=== PATIENT | male | born 1950 | race Caucasian/White ===

== ENCOUNTER 2017-05-31 16:32 | Inpatient (IN) | payer OTHER ==
[~2017-05-31] VITALS: Ht 175.3 cm; Wt 73.3 kg
[2017-05-31] MEDS ORDERED: ASPIRIN 81 MG TAB PO STA (16:51)
[2017-05-31] MEDS ORDERED: NITROGLYCERIN 2% 1 GM OINT PKT TD STA (16:51)
[2017-05-31] MEDS ORDERED: LABETALOL HCL 20MG INJ IV ONE (17:00)
[2017-05-31] MEDS ORDERED: NITROGLYCERIN (SL) 0.4 MG TAB SL PRN ×2 (17:00→19:30)
[2017-05-31] MEDS ORDERED: ALPR0.25 PO (17:13)
[2017-05-31] MEDS ORDERED: KEN25O TOP (17:13)
[2017-05-31] MEDS ORDERED: TICA90TA PO (17:14)
[2017-05-31] MEDS ORDERED: SENN-53 PO (17:15)
[2017-05-31] MEDS ORDERED: BENZ100C70 PO (17:15)
[2017-05-31] MEDS ORDERED: BENZ200C43 PO (17:15)
[2017-05-31] MEDS ORDERED: NEPH PO (17:16)
[2017-05-31] MEDS ORDERED: SEVE800T10 PO (17:16)
[2017-05-31] MEDS ORDERED: PROT946L PO (17:17)
[2017-05-31] MEDS ORDERED: OMEP20CA16 PO (17:17)
[2017-05-31] MEDS ORDERED: NITR0.4T32 SL (17:18)
[2017-05-31] MEDS ORDERED: NIFE60TA7 PO (17:19)
[2017-05-31] MEDS ORDERED: LOSA50TA6 PO (17:20)
[2017-05-31] MEDS ORDERED: ATOR20TA38 PO (17:20)
[2017-05-31] MEDS ORDERED: ASPI-664 PO (17:20)
[2017-05-31] MEDS ORDERED: CARV25TA79 PO (17:21)
[2017-05-31] MEDS ORDERED: CLON1PAT2 TD (17:23)
[2017-05-31] MEDS ORDERED: BISA10SU75 PR (17:24)
[2017-05-31] MEDS ORDERED: FLEETPED PR (17:25)
[2017-05-31] MEDS ORDERED: GABA100C14 PO (17:26)
[2017-05-31] MEDS ORDERED: INSU100V3 IJ (17:31)
--- NOTE | 2017-05-31 17:32 | RADRPT ---
PROCEDURE: XR Chest. CLINICAL INDICATION: Shortness of breath. Chest pain TECHNIQUE: A single portable view of the chest was obtained. COMPARISON: None FINDINGS: The aorta is tortuous and atherosclerotic. The cardiomediastinal silhouette is otherwise moderately enlarged. Bilateral pleural effusions are seen with probable compressive basilar atelectasis, right greater than left. The soft tissues and osseous structures demonstrate benign age related senescen t changes. IMPRESSION: 1. Moderate cardiomegaly. 2. Bilateral pleural effusions, right greater than left. RPTAT: HPNM Physician Homar Date Time Electronically viewed and signed by Darrell Devries Physician on 05/31/2017 17:31 /
[2017-05-31 17:52] LABS: BASOPHIL # 0.1 10^3/ul (0.0-0.1); BASOPHILS % 0.7 % (0.0-2.0); EOSINOPHILS # 0.1 10^3/ul (0.0-0.5); EOSINOPHILS % 1.4 % (0.0-7.0); HEMATOCRIT 28.2 % (42.0-52.0); HEMOGLOBIN 8.8 g/dl (14.0-18.0); LYMPHOCYTES # 0.9 10^3/ul (0.8-2.9); LYMPHOCYTES % 11.2 % (15.0-51.0); MEAN CORPUSCULAR HEMOGLOBIN 26.5 pg (29.0-33.0); MEAN CORPUSCULAR HGB CONC 31.2 g/dl (32.0-37.0); MEAN CORPUSCULAR VOLUME 84.9 fl (82.0-101.0); MEAN PLATELET VOLUME 8.7 fl (7.4-10.4); MONOCYTE # 1.3 10^3/ul (0.3-0.9); MONOCYTES % 15.8 % (0.0-11.0); NEUTROPHIL # 5.9 10^3/ul (1.6-7.5); NEUTROPHILS % 70.3 % (39.0-77.0); PLATELET COUNT 403 10^3/UL (140-415); RED BLOOD COUNT 3.32 10^6/ul (4.70-6.10); RED CELL DISTRIBUTION WIDTH 14.1 % (11.5-14.5); WHITE BLOOD COUNT 8.4 10^3/ul (4.8-10.8)
[2017-05-31 18:07] LABS: CREATININE 5.18 mg/dl (0.61-1.24); POTASSIUM 4.1 mmol/L (3.5-5.1)
[2017-05-31 18:18] LABS: TROPONIN-I 0.129 ng/ml (0.00-0.12)
[2017-05-31] MEDS ORDERED: ACETAMINOPHEN 325 MG TAB PO PRN ×2 (19:00→19:30)
[2017-05-31] MEDS ORDERED: ONDANSETRON 4 MG INJ IV PRN ×2 (19:00→19:30)
[2017-05-31] MEDS: BISACODYL 10 MG SUPP PR SCH (19:30)
[2017-05-31] MEDS ORDERED: ALPRAZOLAM 0.25 MG TAB PO PRN (19:30)
[2017-05-31] MEDS ORDERED: NACL 0.9% 3 ML SYG IV SCH (19:30)
[2017-05-31] MEDS ORDERED: NA PHOSPHATE/BIPHOS 66.6 ML ENEMA PR PRN (19:30)
[2017-05-31 19:31] VITALS: TEMP 98.8
--- NOTE | 2017-05-31 19:42 | ERA ---
ER Documentation Chief Complaint Date/Time DATE: 05/31/17 TIME: 19:38 Chief Complaint worsening SOB s/p dialysis; has been SOB [id number] HPI Patient is a 66-year-old male with dialysis, diabetes, hypertension, and coronary disease who presents with shortness of breath. The patient was brought in by ambulance. The patient does have shortness of breath that is worse at night. The patient was given 3 nitroglycerin by paramedics but no aspirin. The patient says that he cannot lie down flat. He was in a long term facility for the past 1 month. He says that he had 2 stents placed last week at [place] in his heart. He has had vomiting and hiccups. He is speaking in full sentences. His blood pressure was significantly elevated per paramedics above 200 systolic. Upon review of old medical records this is the patient's first visit to the emergency department. His welding foreman is Dr. Bryson. His primary doctor is Dr. Esparza. ROS All systems reviewed and are negative except as per history of present illness. Medications Home Meds Reported Medications Insulin Regular, Human (Humulin R) 100 Unit/1 Ml Vial, 0 IJ SLIDING SCALE, VIAL IF BS 151-200=2 UNITS<70-ORANGE JUICE OR 1MG IM GLUCAGON AND CALL MD;201-250=4 UNITS,251-300=6 UNITS, 301-350=8 UNITS, 351-400=10 UNITS>400=12 UNITS AND CALL MD 05/31/17 Gabapentin* (Gabapentin*) 100 Mg Capsule, 100 MG PO QHS, #30 CAP 05/31/17 Sod Phosphate/Sod Biphosphate* (Fleet* Enema Pediatric) 66.6 Ml Soln, 118 ML GA Q72H Y for CONSTIPATION, ENEMA 05/31/17 Bisacodyl* (Bisacodyl*) 10 Mg Supp, 10 MG GA Q48H, SUPP 05/31/17 Clonidine Patch (CLONIDINE PATCH) 0.2 Mg/24 Hr Patch, 1 PATCH.WK TD Q SAT, #4 PATCH.WK HOLD IF SBP<110 OR HR<60 05/31/17 Carvedilol* (Carvedilol*) 25 Mg Tablet, 25 MG PO BID, #60 TAB HOLD IF SBP<110 OR HR<60 05/31/17 Atorvastatin Calcium* (Atorvastatin Calcium*) 20 Mg Tablet, 20 MG PO QHS, #30 TAB 05/31/17 Aspirin* (Aspirin* EC) 81 Mg Tablet.dr, 81 MG PO DAILY, TAB 05/31/17 Losartan Potassium* (Losartan Potassium*) 50 Mg Tablet, 50 MG PO BID, TAB HOLD IF SBP<110 OR ER<60 05/31/17 Nifedipine* (Nifedipine ER*) 60 Mg Tablet.sa, 60 MG PO BID, TAB.SA HOLD IF SBP<110 OR HR<60 05/31/17 Nitroglycerin* (Nitroglycerin* SL) 0.4 Mg Tab.subl, 0.4 MG SL Q5MIN Y for CHEST PAIN, BOTTLE 05/31/17 Omeprazole* (Omeprazole*) 20 Mg Capsule.dr, 20 MG PO DAILY, #30 CAP 05/31/17 Protein Supplement (Promod) 946 Ml Liquid, 30 ML PO TID 05/31/17 Multivit/Ca Carb/B Cmplx/Fa* (Estephanie-Doc*) 1 Tab Tab, 1 TAB PO DAILY, TAB 05/31/17 Sevelamer Hcl* (Renagel*) 800 Mg Tablet, 800 MG PO WITH MEALS, TAB 05/31/17 Sennosides* (Senna Lax*) 8.6 Mg Tablet, 2 TAB PO QHS, TAB 05/31/17 Benzonatate* (Benzonatate*) 200 Mg Capsule, 200 MG PO Q8H Y for COUGH, CAP 05/31/17 Benzonatate* (Tessalon Perle*) 100 Mg Capsule, 100 MG PO Q8H Y for COUGH, CAP 05/31/17 Ticagrelor* (Brilinta*) 90 Mg Tablet, 90 MG PO Q12, TAB 05/31/17 Triamcinolone Acetonide* (Kenalog*) 0.025%-15GM Oint, 1 APPLIC TOP BID, #1 EA 05/31/17 Alprazolam* (Xanax*) 0.25 Mg Tablet, 0.25 MG PO Q8H Y for ANXIETY, TAB 05/31/17 Allergies Allergies: Coded Allergies: Penicillins (Unverified Allergy, Unknown, 05/31/17) PMhx/Soc History of Surgery: Yes (Stent x2 one week ago) Anesthesia Reaction: No Hx 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 Disorder: No Hx Respiratory Disorders: No Hx Cardiac Disorders: Yes (HTN, CHF) Hx Psychiatric Problems: No Hx Miscellaneous Medical Probl: Yes (CKD) Hx Alcohol Use: No Hx Substance Use: No Hx Tobacco Use: No Smoking Status: Former smoker FmHx Family History: No coronary disease Physical Exam Vitals Vital Signs Date Time Temp Pulse Resp B/P Pulse Ox O2 Delivery O2 Flow Rate FiO2 05/31/17 19:31 98.8 100 20 163/93 100 Nasal Cannula 5.0 05/31/17 18:30 99.1 97 19 167/91 100 05/31/17 17:22 Nasal Cannula 2 05/31/17 16:46 Nasal Cannula 2.0 05/31/17 16:37 99.3 109 19 190/114 100 Physical Exam Const: Mild distress secondary to shortness of breath Head: Atraumatic Eyes: Normal Conjunctiva ENT: Normal External Ears, Nose and Mouth. Neck: Full range of motion..~ No meningismus. Resp: Decreased breath sounds bilaterally Cardio: Regular rate and rhythm, no murmurs Abd: Soft, non tender, non distended. Normal bowel sounds Skin: No petechiae or rashes Back: No midline or flank tenderness Ext: 1+ pitting edema bilaterally Neur: Awake and alert Psych: Normal Mood and Affect Result Diagram: 05/31/17 1722 05/31/17 1722 Results 24 hrs Laboratory Tests Test 05/31/17 17:22 White Blood Count 8.410^3/ul Red Blood Count 3.3210^6/ul Hemoglobin 8.8g/dl Hematocrit 28.2% Mean Corpuscular Volume 84.9fl Mean Corpuscular Hemoglobin 26.5pg Mean Corpuscular Hemoglobin Concent 31.2g/dl Red Cell Distribution Width 14.1% Platelet Count 53272^3/UL Mean Platelet Volume 8.7fl Neutrophils % 70.3% Lymphocytes % 11.2% Monocytes % 15.8% Eosinophils % 1.4% Basophils % 0.7% Nucleated Red Blood Cells % 0.0/100WBC Neutrophils # 5.910^3/ul Lymphocytes # 0.910^3/ul Monocytes # 1.310^3/ul Eosinophils # 0.110^3/ul Basophils # 0.110^3/ul Nucleated Red Blood Cells # 0.010^3/ul Sodium Level 138mmol/L Potassium Level 4.1mmol/L Chloride Level 92mmol/L Carbon Dioxide Level 37mmol/L Anion Gap 13 Blood Urea Nitrogen 11mg/dl Creatinine 5.18mg/dl Glucose Level 149mg/dl Calcium Level 9.0mg/dl Troponin I 0.129ng/ml Current Medications Medications (Trade) Dose Ordered Sig/Ana Laura Route PRN Reason Start Time Stop Time Status Last Admin Dose Admin Aspirin (Aspirin) 162 mg ONCE STAT PO 05/31/17 16:51 05/31/17 16:52 DC 05/31/17 17:27 Nitroglycerin (Nitroglycerin 2% Oint) 1 inch ONCE STAT TD 05/31/17 16:51 05/31/17 16:52 DC 05/31/17 17:36 Nitroglycerin (Nitroglycerin (Sl Tab) 0.4 Mg) 1 tab Q5M UP TO 3 DOSES PRN SL CHEST PAIN 05/31/17 17:00 Labetalol HCl (Labetalol) 20 mg ONCE ONCE IV 05/31/17 17:00 05/31/17 17:01 DC 05/31/17 17:27 Ondansetron HCl (Zofran Inj) 4 mg ER BRIDGE PRN IV NAUSEA AND/OR VOMITING 05/31/17 19:00 06/01/17 18:59 Acetaminophen (Tylenol Tab) 650 mg ER BRIDGE PRN PO MILD PAIN/FEVER 05/31/17 19:00 06/01/17 18:59 Alprazolam (Xanax) 0.25 mg Q8H PRN PO ANXIETY 05/31/17 19:30 Aspirin (Halfprin) 81 mg DAILY PO 06/01/17 09:00 Atorvastatin Calcium (Lipitor) 20 mg QHS PO 05/31/17 22:00 Bisacodyl (Dulcolax Supp) 10 mg Q48H GA 05/31/17 19:30 Carvedilol (Coreg) 25 mg BID PO 05/31/17 22:00 Clonidine HCl (Catapres-Tts 2 Patch) 0.2 patch DAILY TRANSDERM 06/01/17 09:00 UNV Gabapentin (Neurontin) 100 mg QHS PO 05/31/17 22:00 Losartan Potassium (Cozaar) 50 mg BID PO 05/31/17 22:00 Multivit/Ca Carb/ B Cmplx/FA/Prenat (Estephanie-Doc) 1 tab DAILY PO 06/01/17 09:00 Nifedipine (Procardia Xl) 60 mg BID PO 05/31/17 22:00 Nitroglycerin (Nitroglycerin (Sl Tab) 0.4 Mg) 0.4 tab [id number] PRN SL CHEST PAIN 05/31/17 19:30 UNV Senna (Senokot) 2 tab QHS PO 05/31/17 22:00 Sevelamer HCl (Renagel) 800 mg WITH MEALS PO 06/01/17 08:00 UNV Sodium Biphosphate/ Sodium Phosphate (Fleet Enema Pediatric) 118 ml Q72H PRN GA CONSTIPATION 05/31/17 19:30 UNV Ticagrelor (Brilinta) 90 mg Q12 PO 05/31/17 21:00 UNV Triamcinolone Acetonide (Kenalog 0.025% Oint) 1 applic BID TOP 05/31/17 21:00 UNV IV Flush (NS 3 ml) 3 ml PER PROTOCOL IV 05/31/17 19:30 UNV Ondansetron HCl (Zofran Inj) 4 mg Q6H PRN IV NAUSEA AND/OR VOMITING 05/31/17 19:30 UNV Acetaminophen (Tylenol Tab) 650 mg Q6H PRN PO PAIN LEVEL 1-3 OR FEVER 05/31/17 19:30 Procedures/MDM EKG #1 read by me: Rate/Rhythm: Regular rate and rhythm at a normal rate Intervals: Normal Impression: No evidence of ischemia or arrhythmia EKG #2 read by me: Rate/Rhythm: Regular rate and rhythm at a normal rate Intervals: Normal Impression: No evidence of ischemia or arrhythmia PROCEDURE: XR Chest. CLINICAL INDICATION: Shortness of breath. Chest pain TECHNIQUE: A single portable view of the chest was obtained. COMPARISON: None FINDINGS: The aorta is tortuous and atherosclerotic. The cardiomediastinal silhouette is otherwise moderately enlarged. Bilateral pleural effusions are seen with probable compressive basilar atelectasis, right greater than left. The soft tissues and osseous structures demonstrate benign age related senescent changes. IMPRESSION: 1. Moderate cardiomegaly. 2. Bilateral pleural effusions, right greater than left. RPTAT: HPNM Darrell Mogannam, Physician Date Time Electronically viewed and signed by Darrell Devries Physician on 05/31/2017 17 :31 Patient is a 66-year-old male with dialysis, diabetes, and coronary disease who presents with shortness of breath. I believe he likely has acute congestive heart failure given his recent cardiac stents 1 week ago. Patient also has anemia with a hemoglobin of 8.8 but does not require transfusion at this point. The patient has chronic renal failure but his potassium is normal. The patient will be admitted to the telemetry floor under the care of the panel team as he has never been admitted before his primary doctor does not admit here. I doubt pneumonia, pneumothorax, pulmonary embolism, or aortic dissection. Departure Diagnosis: Primary Impression: Shortness of breath Additional Impressions: CHF (congestive heart failure) Qualified Code: I50.9 - Acute congestive heart failure, unspecified congestive heart failure type Anemia Qualified Code: D64.9 - Anemia, unspecified type Condition: MONICA Abrams MD May 31, 2017 19:42
[2017-05-31 20:17] VITALS: PULSE 99
[2017-05-31 21:09] VITALS: BP 184/99; RESP 20
[2017-05-31 22:25] VITALS: BP 191/103; PULSE 95
--- NOTE | 2017-05-31 22:29 | HP ---
Date/Time of Note Date/Time of Note DATE: 05/31/17 TIME: 22:20 Assessment/Plan VTE Prophylaxis VTE Prophylaxis Intervention: SCD's Lines/Catheters IV [facility]from [facility] Assessment/Plan Chief Complaint/Hosp Course This is a 66 year old male being admitted to the telemetry floor for: #1 acute chf exacerbation: Patient apparently had a full dialysis session today. He does have crackles on his lung exam left greater than right and his chest x-ray does show bilateral pleural effusions. At the current time the patient does not appear to be in any acute distress. He does not have any lower extremity edema. At the current time I will give a trial of metolazone 5 mg and 30 minutes after we will give IV Lasix 40 mg 1. We will see for able to get any diuresis. As the patient right now is comfortable, I will await nephrology consultation for possible further dialysis to help with diuresis in the a.m. If his condition worsens tonight will consult nephrology urgently. We will also consult the patient's divinity professor Dr. Bryson As he recently had stents placed as he recently had stents placed we will try to obtain records in the a.m. If we are unable to obtain records and if cardiology deems it necessary will order an echocardiogram in the a.m. of note patient did have an initial elevated troponin of 0.12 however he denies any chest pain. This likely could be secondary to his end-stage renal disease. Will continue to trend his enzymes. #2 diabetes mellitus: Patient states that he has a history of diabetes mellitus however he is not currently requiring any medications. Will check hemoglobin A1c. And for the meantime put him on insulin sliding scale. #3 coronary artery disease: Patient is a recent history of cardiac stents. Will continue aspirin/statin/beta-kimberly. He also is on an ARB will continue him on this #4 hypertension: We will continue patient's home medications. Will put as needed hydralazine for elevated blood pressure. #5 end-stage renal disease: We do not have any previous renal function test here as is his first time at the hospital. His current creatinine is 5.7. He did have dialysis today. Will consult nephrology in the a.m. Patient likely will benefit from a dialysis session in the a.m. if he is not able to achieve adequate diuresis overnight. Continue patient's renal medications #6 DVT and GI prophylaxis: SCDs, acid kimberly Further treatment strategy will be implemented as per the clinical course Problems: HPI/ROS Admit Date/Time Admit Date/Time May 31, 2017 at 18:39 Hx of Present Illness CC: shortness of breath Patient is a 66-year-old male with dialysis, diabetes, hypertension, and coronary disease who presents with shortness of breath. The patient was brought in by ambulance. The patient does have shortness of breath that is worse at night. The patient was given 3 nitroglycerin by paramedics but no aspirin. The patient says that he cannot lie down flat. He was in a [facility] facility for the past 1 month. He says that he had 2 stents placed last week at [place] in his heart. He has had vomiting and hiccups. He is speaking in full sentences. Patient denies any chest pain or diaphoresis. His blood pressure was significantly elevated per paramedics above 200 systolic, however upon my examination his blood pressure is in systolic of 160. Prior to me entering the room patient was sleeping comfortably while lying down. On examination he does not appear to be in any acute respiratory distress. He states that he had a full session of dialysis today. He states his divinity professor is Dr. Bryson. Though he reports that he does not urinate, he does state that in the past he has taken Lasix and he has urinated. allergies: Penicillins Medications: See ROME MELGAR Const: As per HPI Eyes : No pain discharge or redness or change in visual acuity ENT: No pain, sore throat, congestion, congestion, dysphagia or discharge Respiratory: As per HPI Cardiovascular: As per HPI GI : no change in appetite, abdominal pain, nausea, vomiting, diarrhea, constipation, or change in the color his stool Genitourinary: No dysuria, hematuria, flank pain , discharge or CVA tenderness Musculoskeletal: No joint pain, back pain, neck pain, restricted range of motion in neck or joints Skin: No rash, bruising or hives Neuro: No headache, dizziness, syncope, seizure, focal weakness Endocrine: No polyuria, polydipsia, temperature intolerance Psych: No hallucination, depression, anxiety or suicidal ideation PMH/Family/Social Past Medical History htn, dm,. chf, cad Past Surgical History Cardiac stents recently, left av fistula Family History Significant Family History: diabetes, hypertension Social History Alcohol Use: none Smoking Status: Former smoker (20 pack year history) Drug Use: none Exam/Review of Systems Vital Signs Vitals Vital Signs Date Time Temp Pulse Resp B/P Pulse Ox O2 Delivery O2 Flow Rate FiO2 05/31/17 21:09 99.3 99 20 184/99 98 05/31/17 19:31 Nasal Cannula 5.0 Exam Exam General: Patient is a 6-year-old male lying in bed in no acute distress HEENT: Atraumatic, normocephalic. The pupils are equal, round and reactive. Extraocular motor are intact Neck: Supple with full range of motion. No rigidity or meningismus Chest: Nontender Lungs: Appear to be bilateral crackles on exam greater on the left compared to the right. No wheezing Heart: Normal S1-S2, Regular rhythm and rate. No overt murmurs appreciated Abdomen: Soft , nontender, nondistended , bowel sounds are present. No guarding no rebound tenderness , No masses or organomegaly. No costovertebral temporal angle mass Extremities: Normal to inspection, no edema no cyanosis Neurologic: Normal mental status, speech normal, cranial nerves II through XII are intact, motor and sensory are intact, no focal weakness Additional Comments PROCEDURE: XR Chest. CLINICAL INDICATION: Shortness of breath. Chest pain TECHNIQUE: A single portable view of the chest was obtained. COMPARISON: None FINDINGS: The aorta is tortuous and atherosclerotic. The cardiomediastinal silhouette is otherwise moderately enlarged. Bilateral pleural effusions are seen with probable compressive basilar atelectasis, right greater than left. The soft tissues and osseous structures demonstrate benign age related senescent changes. IMPRESSION: 1. Moderate cardiomegaly. 2. Bilateral pleural effusions, right greater than left. RPTAT: HPNM Physician Homar Date Time Electronically viewed and signed by Physician Homar on 05/31/2017 17 :31 / CC: MONICA ROMEO MD EKG #1 : Rate/Rhythm: Regular rate and rhythm at a normal rate Intervals: Normal Impression: No evidence of ischemia or arrhythmia As per ED physician documentation Labs Result Diagram: 05/31/17 1722 05/31/17 1722 Medications Medications Current Medications Alprazolam (Xanax) 0.25 mg Q8H PRN PO ANXIETY; Start 05/31/17 at 19:30 Aspirin (Halfprin) 81 mg DAILY PO ; Start 06/01/17 at 09:00 Atorvastatin Calcium (Lipitor) 20 mg QHS PO ; Start 05/31/17 at 22:00 Bisacodyl (Dulcolax Supp) 10 mg Q48H SC ; Start 05/31/17 at 19:30 Carvedilol (Coreg) 25 mg BID PO ; Start 05/31/17 at 22:00 Clonidine HCl (Catapres-Tts 2 Patch) 0.2 patch Sa@09 TRANSDERM ; Start 06/02/17 at 09:00 Gabapentin (Neurontin) 100 mg QHS PO ; Start 05/31/17 at 22:00 Losartan Potassium (Cozaar) 50 mg BID PO ; Start 05/31/17 at 22:00 Multivit/Ca Carb/ B Cmplx/FA/Prenat (Estephanie-Doc) 1 tab DAILY PO ; Start 06/01/17 at 09:00 Nifedipine (Procardia Xl) 60 mg BID PO ; Start 05/31/17 at 22:00 Nitroglycerin (Nitroglycerin (Sl Tab) 0.4 Mg) 0.4 tab [id number] PRN SL CHEST PAIN; Start 05/31/17 at 19:30 Senna (Senokot) 2 tab QHS PO ; Start 05/31/17 at 22:00 Sodium Biphosphate/ Sodium Phosphate (Fleet Enema Pediatric) 118 ml Q72H PRN SC CONSTIPATION; Start 05/31/17 at 19:30 Ticagrelor (Brilinta) 90 mg Q12 PO ; Start 05/31/17 at 22:00 Triamcinolone Acetonide (Kenalog 0.025% Oint) 1 applic BID TOP ; Start 05/31/17 at 22:00 Ondansetron HCl (Zofran Inj) 4 mg Q6H PRN IV NAUSEA AND/OR VOMITING; Start 05/31/17 at 19:30 Acetaminophen (Tylenol Tab) 650 mg Q6H PRN PO PAIN LEVEL 1-3 OR FEVER; Start 05/31/17 at 19:30 ARASH MCCRARY May 31, 2017 22:29
[2017-05-31] MEDS: NIFEdipine (XL) 60 MG TAB PO SCH (22:30)
[2017-05-31] MEDS ORDERED: METOLAZONE 5 MG TAB PO ONE (22:30)
[2017-05-31] MEDS: ATORVASTATIN 20 MG TAB PO SCH (22:30)
[2017-05-31] MEDS: LOSARTAN 50 MG TAB PO SCH (22:30)
[2017-05-31] MEDS: SENNA TAB PO SCH (22:32)
[2017-05-31] MEDS: TICAGRELOR 90 MG TABLET PO SCH (22:34)
[2017-05-31] MEDS: GABAPENTIN 100 MG CAP PO SCH (22:38)
[2017-05-31] MEDS ORDERED: DEXTROSE 50% 50 ML SYRINGE IV PRN ×2 (23:00)
[2017-05-31] MEDS ORDERED: FUROSEMIDE 40 MG INJ IV ONE (23:00)
[2017-05-31] MEDS ORDERED: GLUCAGON 1 MG INJ IM PRN (23:00)
[2017-05-31] MEDS ORDERED: GLUCOSE GEL 15 GRAM TUBE BUCCAL PRN (23:00)
[2017-05-31] MEDS ORDERED: GLUCOSE GEL 15 GRAM TUBE PO PRN ×2 (23:00)
[2017-05-31 23:08] VITALS: Ht 175.3 cm; Wt 73.3 kg
[2017-05-31 23:16] VITALS: BP 178/84; PULSE 94
[2017-05-31] MEDS: TRIAMCINOLONE ACET 0.025% 15 GM OINT TOP SCH (23:18)
[2017-06-01] VITALS (20 sets, daily range): BP systolic 98–178; BP diastolic 57–84; PULSE 77–163; RESP 17–22
[2017-06-01 01:01] LABS: CK-MB 1.11 ng/ml (0.0-2.4)
[2017-06-01 01:14] LABS: TROPONIN-I 0.165 ng/ml (0.00-0.12)
[2017-06-01] MEDS ORDERED: hydrALAzine 20 MG INJ IV PRN (01:30)
[2017-06-01] MEDS ORDERED: ACCU-CHEK XX SCH (02:00)
[2017-06-01] MEDS: ACCU-CHEK XX SCH (02:00)
[2017-06-01] MEDS ORDERED: morphine 2 MG INJ IV ONE ×2 (03:30→22:06)
[2017-06-01 07:38] LABS: BASOPHIL # 0.1 10^3/ul (0.0-0.1); BASOPHILS % 0.8 % (0.0-2.0); EOSINOPHILS # 0.2 10^3/ul (0.0-0.5); EOSINOPHILS % 2.7 % (0.0-7.0); LYMPHOCYTES # 1.1 10^3/ul (0.8-2.9); LYMPHOCYTES % 14.4 % (15.0-51.0); MEAN CORPUSCULAR HEMOGLOBIN 25.7 pg (29.0-33.0); MEAN CORPUSCULAR HGB CONC 30.8 g/dl (32.0-37.0); MEAN CORPUSCULAR VOLUME 83.6 fl (82.0-101.0); MEAN PLATELET VOLUME 8.7 fl (7.4-10.4); MONOCYTE # 1.3 10^3/ul (0.3-0.9); MONOCYTES % 17.8 % (0.0-11.0); NEUTROPHIL # 4.8 10^3/ul (1.6-7.5); NEUTROPHILS % 63.9 % (39.0-77.0); PLATELET COUNT 351 10^3/UL (140-415); RED BLOOD COUNT 3.11 10^6/ul (4.70-6.10); RED CELL DISTRIBUTION WIDTH 14.1 % (11.5-14.5); WHITE BLOOD COUNT 7.5 10^3/ul (4.8-10.8)
[2017-06-01 08:03] LABS: CALCIUM 8.9 mg/dl (8.4-10.2); CHOL/HDL RATIO 1.9 RATIO; CREATININE 6.11 mg/dl (0.61-1.24); MAGNESIUM 1.7 mg/dl (1.7-2.5); POTASSIUM 4.1 mmol/L (3.5-5.1)
[2017-06-01 08:21] LABS: CK-MB 0.89 ng/ml (0.0-2.4); TROPONIN-I 0.149 ng/ml (0.00-0.12)
[2017-06-01] MEDS: INSULIN ASPART [NOVOLOG] 3 ML PEN SC SCH ×4 (08:50→20:52)
[2017-06-01] MEDS: SEVELAMER 800 MG TAB PO SCH ×3 (09:02→18:23)
[2017-06-01] MEDS: MULTIVIT/CA CARB/B CMPLX/FA TAB PO SCH (09:03)
[2017-06-01] MEDS: NIFEdipine (XL) 60 MG TAB PO SCH ×2 (09:03→22:17)
[2017-06-01] MEDS: ASPIRIN (EC) 81 MG TAB PO SCH (09:04)
[2017-06-01] MEDS: LOSARTAN 50 MG TAB PO SCH ×2 (09:05→20:51)
[2017-06-01] MEDS: TRIAMCINOLONE ACET 0.025% 15 GM OINT TOP SCH ×2 (09:05→20:52)
[2017-06-01 09:08] LABS: THYROID STIMULATING HORMONE 2.57 MIU/L (0.465-4.680)
[2017-06-01] MEDS: TICAGRELOR 90 MG TABLET PO SCH ×2 (09:13→20:55)
--- NOTE | 2017-06-01 12:46 | PN ---
Date/Time of Note Date/Time of Note DATE: 06/01/17 TIME: 12:40 Assessment/Plan VTE Prophylaxis VTE Prophylaxis Intervention: SCD's Lines/Catheters IV Catheter Type (from Nrs): Peripheral IV Urinary Cath still in place: No Assessment/Plan Assessment/Plan ASSESSMENT: #1 acute chf exacerbation 2/2 fluid overload #2 diabetes mellitus #3 coronary artery disease: #4 hypertension: W #5 end-stage renal disease: on HD Plan: Continue home BP meds Clonidine patch for better BP cotnrol nephrology has been consulted on the case and pt will be planned for HD as per nephrology pt follows at [facility] and his chassis wirer is Daniel Saldivar, regualr schedule is TTS DVT and GI prophylaxis: SCDs, acid kimberly Subjective 24 Hr Interval Summary Free Text/Dictation still SOB off oxygen , BP stable Exam/Review of Systems Vital Signs Vitals Vital Signs Date Time Temp Pulse Resp B/P Pulse Ox O2 Delivery O2 Flow Rate FiO2 06/01/17 11:29 98.3 84 20 142/68 97 05/31/17 21:45 Nasal Cannula 2.0 Intake and Output 05/31/17 05/31/17 06/01/17 15:00 23:00 07:00 Intake Total 400 ml Balance 400 ml Exam Constitutional: alert Psych: no complaints Head: normocephalic Eyes: nl conjunctiva ENMT: nl external ears & nose Neck: non-tender, supple Respiratory: clear to auscultation, congested cough, crackles/rales, diminished breath sounds Cardiovascular: nl pulses, regular rate and rhythm Gastrointestinal: non-tender, soft Musculoskeletal: muscle weakness, nl extremities to inspection, swelling 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: 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8 H Eosinophils % 1.4 2.7 Basophils % 0.7 0.8 Nucleated Red Blood Cells % 0.0 0.0 Neutrophils # 5.9 4.8 Lymphocytes # 0.9 1.1 Monocytes # 1.3 H 1.3 H Eosinophils # 0.1 0.2 Basophils # 0.1 0.1 Nucleated Red Blood Cells # 0.0 0.0 Sodium Level 138 136 Potassium Level 4.1 4.1 Chloride Level 92 L 93 L Carbon Dioxide Level 37 H 33 H Anion Gap 13 14 Blood Urea Nitrogen 11 14 Creatinine 5.18 H 6.11 H Glucose Level 149 107 # Calcium Level 9.0 8.9 Troponin I 0.129 *H 0.165 *H 0.149 *H B-Type Natriuretic Peptide 47561 H Creatine Kinase 107 95 Creatine Kinase Index 1.0 0.9 Creatinine Kinase MB (Mass) 1.11 0.89 Hemoglobin A1c 6.6 H Magnesium Level 1.7 Triglycerides Level 74 Cholesterol Level 90 L LDL Cholesterol, Calculated 29 HDL Cholesterol 46 Cholesterol/HDL Ratio 1.9 Thyroid Stimulating Hormone (TSH) 2.570 Bedside Glucose 112 Test 06/01/17 12:22 Bedside Glucose 118 Medications Medications Current Medications Alprazolam (Xanax) 0.25 mg Q8H PRN PO ANXIETY; Start 05/31/17 at 19:30 Aspirin (Halfprin) 81 mg DAILY PO Last administered on 06/01/17 09:04; Admin Dose 81 MG; Start 06/01/17 at 09:00 Atorvastatin Calcium (Lipitor) 20 mg QHS PO Last administered on 05/31/17 22: 30; Admin Dose 20 MG; Start 05/31/17 at 22:00 Bisacodyl (Dulcolax Supp) 10 mg Q48H WI ; Start 05/31/17 at 19:30 Carvedilol (Coreg) 25 mg BID PO Last administered on 06/01/17 09:04; Admin Dose 25 MG; Start 05/31/17 at 22:00 Clonidine HCl (Catapres-Tts 2 Patch) 0.2 patch Sa@09 TRANSDERM ; Start 06/02/17 at 09:00 Gabapentin (Neurontin) 100 mg QHS PO Last administered on 05/31/17 22:38; Admin Dose 100 MG; Start 05/31/17 at 22:00 Losartan Potassium (Cozaar) 50 mg BID PO Last administered on 06/01/17 09:05; Admin Dose 50 MG; Start 05/31/17 at 22:00 Multivit/Ca Carb/ B Cmplx/FA/Prenat (Estephanie-Doc) 1 tab DAILY PO Last administered on 06/01/17 09:03; Admin Dose 1 TAB; Start 06/01/17 at 09:00 Nifedipine (Procardia Xl) 60 mg BID PO Last administered on 06/01/17 09:03; Admin Dose 60 MG; Start 05/31/17 at 22:00 Nitroglycerin (Nitroglycerin (Sl Tab) 0.4 Mg) 0.4 tab [id number] PRN SL CHEST PAIN; Start 05/31/17 at 19:30 Senna (Senokot) 2 tab QHS PO Last administered on 05/31/17 22:32; Admin Dose 2 TAB; Start 05/31/17 at 22:00 Sodium Biphosphate/ Sodium Phosphate (Fleet Enema Pediatric) 118 ml Q72H PRN [place] CONSTIPATION; Start 05/31/17 at 19:30 Ticagrelor (Brilinta) 90 mg Q12 PO Last administered on 06/01/17 09:13; Admin Dose 90 MG; Start 05/31/17 at 22:00 Triamcinolone Acetonide (Kenalog 0.025% Oint) 1 applic BID TOP Last administered on 06/01/17 09:05; Admin Dose 1 APPLIC; Start 05/31/17 at 22:00 Ondansetron HCl (Zofran Inj) 4 mg Q6H PRN IV NAUSEA AND/OR VOMITING; Start 05/31/17 at 19:30 Acetaminophen (Tylenol Tab) 650 mg Q6H PRN PO PAIN LEVEL 1-3 OR FEVER; Start 05/31/17 at 19:30 Diagnostic Test (Pha) (Accu-Chek) 1 ea 02 XX ; Start 06/01/17 at 02:00 Miscellaneous Information 1 ea NOTE XX ; Start 05/31/17 at 23:00 Glucose (Glutose) 15 gm Q15M PRN PO DECREASED GLUCOSE; Start 05/31/17 at 23:00 Glucose (Glutose) 22.5 gm Q15M PRN PO DECREASED GLUCOSE; Start 05/31/17 at 23: 00 Dextrose (D50w Syringe) 25 ml Q15M PRN IV DECREASED GLUCOSE; Start 05/31/17 at 23:00 Dextrose (D50w Syringe) 50 ml Q15M PRN IV DECREASED GLUCOSE; Start 05/31/17 at 23:00 Glucagon (Glucagen) 1 mg Q15M PRN IM DECREASED GLUCOSE; Start 05/31/17 at 23:00 Glucose (Glutose) 15 gm Q15M PRN BUCCAL DECREASED GLUCOSE; Start 05/31/17 at 23 :00 Hydralazine HCl (Apresoline) 20 mg Q4H PRN IV ELEVATED SYSTOLIC BP; Start 06/01 at 01:30 ROSE ZUNIGA MD Jun 01, 2017 12:46
[2017-06-01 13:05] LABS: TROPONIN-I 0.101 ng/ml (0.00-0.12)
[2017-06-01 13:06] LABS: CK-MB 0.86 ng/ml (0.0-2.4)
[2017-06-01] MEDS ORDERED: DILTIAZEM 25 MG INJ IV ONE (13:30)
[2017-06-01] MEDS: ESCITALOPRAM 10 MG TAB PO SCH (14:23)
[2017-06-01] MEDS: SENNA TAB PO SCH (20:50)
[2017-06-01] MEDS: ATORVASTATIN 20 MG TAB PO SCH (20:51)
[2017-06-01] MEDS: GABAPENTIN 100 MG CAP PO SCH (20:51)
[2017-06-02] VITALS (21 sets, daily range): BP systolic 109–161; BP diastolic 64–90; PULSE 76–180; RESP 16–20
[2017-06-02] MEDS: ACCU-CHEK XX SCH (02:00)
[2017-06-02] MEDS: INSULIN ASPART [NOVOLOG] 3 ML PEN SC SCH ×4 (07:55→21:00)
--- NOTE | 2017-06-02 07:58 | CONS ---
DATE OF ADMISSION: 05/31/2017 DATE OF CONSULTATION: 06/01/2017 TYPE OF CONSULTATION: Nephrology. HISTORY OF PRESENT ILLNESS: This is a 66-year-old male with past medical history of ____ who present s to [facility] Emergency Room with chest pain, shortness of breath. The patient continues on hemodialysis. On arrival in the emergency room, the patient's blood pressure is greater than 200. In the emergency room was given morphine, Lasix, aspirin and admitted to telemetry for f urther evaluation. In the emergency room, the patient did get a chest x-ray which showed findings o f moderate cardiomegaly and bilateral pleural effusion. PAST MEDICAL HISTORY: Significant for end-stage renal disease, supine hypertension, anemia, mineral bone disorder and diabetes. ALLERGIES: PENICILLIN. FAMILY HISTORY: Noncontributory. SOCIAL HISTORY: No smoking, drinking or drugs. REVIEW OF SYSTEMS: A 14-point review of systems reviewed. PHYSICAL EXAMINATION: VITAL SIGNS: temperature 98.3. HEENT: Normocephalic and atraumatic. HEART: Regular rate. LUNGS: Show diminished breath sounds throughout the base. ABDOMEN: Soft, nontender to palpation. ____ EXTREMITIES: Negative for cyanosis or clubbing, no edema. SKIN: No rashes. MUSCULOSKELETAL: Chest x-ray: Reviewed and shows bilateral pleural effusion right greater than left. ASSESSMENT AND PLAN: This is a 66-year-old male who presents with: 1. End-stage renal disease. The patient underwent hemodialysis yesterday. The patient has evidenc e of volume overload. His chest x-ray has findings of bilateral pleural effusion. The patient is a lso hypertensive. The plan is to come to dialysis today for ultrafiltration. We will monitor vital s closely with supportive care. 2. Volume overload. The patient with possible ____exacerbation. Chest x-ray shows bilateral pleur al effusion. Ultrafiltration with hemodialysis and monitor closely. 3. Diabetes. 4. 5. : Dictated By: ARMINDA ASHER/YADY Conf#: [id number] DID#: [id number]
[2017-06-02 08:35] LABS: BASOPHIL # 0.1 10^3/ul (0.0-0.1); BASOPHILS % 0.6 % (0.0-2.0); EOSINOPHILS # 0.3 10^3/ul (0.0-0.5); EOSINOPHILS % 3.7 % (0.0-7.0); HEMATOCRIT 25.7 % (42.0-52.0); HEMOGLOBIN 8.2 g/dl (14.0-18.0); LYMPHOCYTES # 0.9 10^3/ul (0.8-2.9); LYMPHOCYTES % 11.3 % (15.0-51.0); MEAN CORPUSCULAR HEMOGLOBIN 27.1 pg (29.0-33.0); MEAN CORPUSCULAR HGB CONC 31.9 g/dl (32.0-37.0); MEAN CORPUSCULAR VOLUME 84.8 fl (82.0-101.0); MEAN PLATELET VOLUME 8.8 fl (7.4-10.4); MONOCYTE # 1.2 10^3/ul (0.3-0.9); NEUTROPHIL # 5.4 10^3/ul (1.6-7.5); PLATELET COUNT 389 10^3/UL (140-415); RED BLOOD COUNT 3.03 10^6/ul (4.70-6.10); RED CELL DISTRIBUTION WIDTH 13.9 % (11.5-14.5); WHITE BLOOD COUNT 7.9 10^3/ul (4.8-10.8)
[2017-06-02 08:59] LABS: ALBUMIN 3.2 g/dl (3.3-4.9); ALBUMIN/GLOBULIN RATIO 0.8; CALCIUM 8.8 mg/dl (8.4-10.2); CREATININE 8.64 mg/dl (0.61-1.24); POTASSIUM 4.2 mmol/L (3.5-5.1); TOTAL PROTEIN 7.2 g/dl (6.1-8.1)
[2017-06-02] MEDS: LOSARTAN 50 MG TAB PO SCH ×2 (09:00→20:19)
[2017-06-02] MEDS: NIFEdipine (XL) 60 MG TAB PO SCH ×2 (09:00→20:18)
[2017-06-02] MEDS: TRIAMCINOLONE ACET 0.025% 15 GM OINT TOP SCH ×2 (09:00→21:00)
[2017-06-02] MEDS ORDERED: CLONIDINE 0.2 MG/24 HR PATCH TRANSDERM SCH (09:00)
[2017-06-02 09:07] LABS: INR 1.2; PROTIME 15.3 Sec (12.2-14.2); PT RATIO 1.2
[2017-06-02 09:08] LABS: PARTIAL THROMBOPLASTIN TIME 33.8 Sec (25.0-35.0)
[2017-06-02] MEDS: MULTIVIT/CA CARB/B CMPLX/FA TAB PO SCH (09:26)
[2017-06-02] MEDS: SEVELAMER 800 MG TAB PO SCH ×3 (09:26→17:55)
[2017-06-02] MEDS: ESCITALOPRAM 10 MG TAB PO SCH (09:26)
[2017-06-02] MEDS: ASPIRIN (EC) 81 MG TAB PO SCH (09:26)
[2017-06-02] MEDS: TICAGRELOR 90 MG TABLET PO SCH ×2 (09:26→20:25)
--- NOTE | 2017-06-02 09:48 | PN ---
Date/Time of Note Date/Time of Note DATE: 06/02/17 TIME: 09:44 Assessment/Plan VTE Prophylaxis VTE Prophylaxis Intervention: other Lines/Catheters IV C[facility]ter [facility]from [facility]): Saline Lock Urinary Cath still in place: No Assessment/Plan Chief Complaint/Hosp Course Nephrology follow up HISTORY OF PRESENT ILLNESS: This is a 66-year-old male with past medical history of ESRD who presents to [facility] Emergency Room with chest pain, shortness of breath. The patient continues on hemodialysis. no nausea, melena, fever or new rash d/w Dr crowe and HD nurse REVIEW OF SYSTEMS: A 14-point review of systems reviewed. PHYSICAL EXAMINATION: HEENT: Normocephalic and atraumatic. HEART: Regular rate. LUNGS: Show diminished breath sounds throughout the base. no wheezing ABDOMEN: Soft, nontender to palpation EXTREMITIES: Negative for cyanosis or clubbing, no edema. SKIN: No rashes. Chest x-ray: Reviewed and shows bilateral pleural effusion right greater than left. ASSESSMENT AND PLAN: This is a 66-year-old male who presents with: 1. End-stage renal disease. The patient underwent hemodialysis yesterday. He will be evaluated daily for his dialytic needs. We will monitor vitals closely with supportive care. 2. Volume overload. The patient with possible chf exacerbation. Chest x-ray shows bilateral pleural effusion. Ultrafiltration with hemodialysis and monitor closely. 3. Diabetes. 4. anemia: will check iron panel. continue epogen with hd 5. HTN: BP at target after UF/HD. Meds were reviewed Problems: Exam/Review of Systems Vital Signs Vitals Vital Signs Date Time Temp Pulse Resp B/P Pulse Ox O2 Delivery O2 Flow Rate FiO2 06/02/17 08:00 89 06/02/17 07:17 98.9 20 160/90 98 06/01/17 21:00 Nasal Cannula 2.0 Intake and Output 06/01/17 06/01/17 06/02/17 15:00 23:00 07:00 Intake Total 350 ml 250 ml Output Total 50 ml Balance 350 ml 200 ml Results Result Diagram: 06/02/1728 06/02/17727 Results 24 hrs Laboratory Tests Test 06/01/17 12:14 06/01/17 12:22 06/01/17 18:16 06/01/17 20:48 Creatine Kinase 93 Creatine Kinase Index 0.9 Creatinine Kinase MB (Mass) 0.86 Troponin I 0.101 Bedside Glucose 118 141 131 Test 06/02/17 07:28 06/02/17 08:35 White Blood Count 7.9 Red Blood Count 3.03 L Hemoglobin 8.2 L Hematocrit 25.7 L Mean Corpuscular Volume 84.8 Mean Corpuscular Hemoglobin 27.1 L Mean Corpuscular Hemoglobin Concent 31.9 L Red Cell Distribution Width 13.9 Platelet Count 389 Mean Platelet Volume 8.8 Neutrophils % 69.0 Lymphocytes % 11.3 L Monocytes % 15.0 H Eosinophils % 3.7 Basophils % 0.6 Nucleated Red Blood Cells % 0.0 Neutrophils # 5.4 Lymphocytes # 0.9 Monocytes # 1.2 H Eosinophils # 0.3 Basophils # 0.1 Nucleated Red Blood Cells # 0.0 Prothrombin Time 15.3 H Prothrombin Time Ratio 1.2 INR International Normalized Ratio 1.20 Activated Partial Thromboplast Time 33.8 Sodium Level 134 L Potassium Level 4.2 Chloride Level 92 L Carbon Dioxide Level 34 H Anion Gap 12 Blood Urea Nitrogen 19 Creatinine 8.64 #H Glucose Level 87 Calcium Level 8.8 Total Bilirubin 0.0 L Direct Bilirubin 0.00 Indirect Bilirubin 0.0 Aspartate Amino Transf (AST/SGOT) 25 Alanine Aminotransferase (ALT/SGPT) 25 Alkaline Phosphatase 60 Total Protein 7.2 Albumin 3.2 L Globulin 4.00 H Albumin/Globulin Ratio 0.80 Bedside Glucose 88 Medications Medications Current Medications Alprazolam (Xanax) 0.25 mg Q8H PRN PO ANXIETY; Start 05/31/17 at 19:30 Aspirin (Halfprin) 81 mg DAILY PO Last administered on 06/02/17 09:26; Admin Dose 81 MG; Start 06/01/17 at 09:00 Atorvastatin Calcium (Lipitor) 20 mg QHS PO Last administered on 06/01/17 20: 51; Admin Dose 20 MG; Start 05/31/17 at 22:00 Bisacodyl (Dulcolax Supp) 10 mg Q48H [place] ; Start 05/31/17 at 19:30 Carvedilol (Coreg) 25 mg BID PO Last administered on 06/01/17 20:57; Admin Dose 25 MG; Start 05/31/17 at 22:00 Clonidine HCl (Catapres-Tts 2 Patch) 0.2 patch Sa@09 TRANSDERM ; Start 06/02/17 at 09:00 Gabapentin (Neurontin) 100 mg QHS PO Last administered on 06/01/17 20:51; Admin Dose 100 MG; Start 05/31/17 at 22:00 Losartan Potassium (Cozaar) 50 mg BID PO Last administered on 06/01/17 20:51; Admin Dose 50 MG; Start 05/31/17 at 22:00 Multivit/Ca Carb/ B Cmplx/FA/Prenat (Estephanie-Doc) 1 tab DAILY PO Last administered on 06/02/17 09:26; Admin Dose 1 TAB; Start 06/01/17 at 09:00 Nifedipine (Procardia Xl) 60 mg BID PO Last administered on 06/01/17 22:17; Admin Dose 60 MG; Start 05/31/17 at 22:00 Nitroglycerin (Nitroglycerin (Sl Tab) 0.4 Mg) 0.4 tab [id number] PRN SL CHEST PAIN; Start 05/31/17 at 19:30 Senna (Senokot) 2 tab QHS PO Last administered on 06/01/17 20:50; Admin Dose 2 TAB; Start 05/31/17 at 22:00 Sodium Biphosphate/ Sodium Phosphate (Fleet Enema Pediatric) 118 ml Q72H PRN [place] CONSTIPATION; Start 05/31/17 at 19:30 Ticagrelor (Brilinta) 90 mg Q12 PO Last administered on 06/02/17 09:26; Admin Dose 90 MG; Start 05/31/17 at 22:00 Triamcinolone Acetonide (Kenalog 0.025% Oint) 1 applic BID TOP Last administered on 06/01/17 09:05; Admin Dose 1 APPLIC; Start 05/31/17 at 22:00 Ondansetron HCl (Zofran Inj) 4 mg Q6H PRN IV NAUSEA AND/OR VOMITING; Start 05/31/17 at 19:30 Acetaminophen (Tylenol Tab) 650 mg Q6H PRN PO PAIN LEVEL 1-3 OR FEVER; Start 05/31/17 at 19:30 Diagnostic Test (Pha) (Accu-Chek) 1 ea 02 XX ; Start 06/01/17 at 02:00 Miscellaneous Information 1 ea NOTE XX ; Start 05/31/17 at 23:00 Glucose (Glutose) 15 gm Q15M PRN PO DECREASED GLUCOSE; Start 05/31/17 at 23:00 Glucose (Glutose) 22.5 gm Q15M PRN PO DECREASED GLUCOSE; Start 05/31/17 at 23: 00 Dextrose (D50w Syringe) 25 ml Q15M PRN IV DECREASED GLUCOSE; Start 05/31/17 at 23:00 Dextrose (D50w Syringe) 50 ml Q15M PRN IV DECREASED GLUCOSE; Start 05/31/17 at 23:00 Glucagon (Glucagen) 1 mg Q15M PRN IM DECREASED GLUCOSE; Start 05/31/17 at 23:00 Glucose (Glutose) 15 gm Q15M PRN BUCCAL DECREASED GLUCOSE; Start 05/31/17 at 23 :00 Hydralazine HCl (Apresoline) 20 mg Q4H PRN IV ELEVATED SYSTOLIC BP; Start 06/01 at 01:30 Escitalopram Oxalate (Lexapro) 10 mg DAILY PO Last administered on 06/02/17 09 :26; Admin Dose 10 MG; Start 06/01/17 at 13:30 JUANA SMITH DO Jun 02, 2017 09:48
[2017-06-02 10:03] LABS: IRON 15 ug/dl (35-150)
[2017-06-02 10:12] LABS: TOTAL IRON BINDING CAPACITY 192 ug/dl (241-421)
--- NOTE | 2017-06-02 14:47 | PN ---
Date/Time of Note Date/Time of Note DATE: 06/02/17 TIME: 14:45 Assessment/Plan VTE Prophylaxis VTE Prophylaxis Intervention: SCD's Lines/Catheters IV Catheter Type (from Nrs): Saline Lock Urinary Cath still in place: No Assessment/Plan Assessment/Plan #1 acute chf exacerbation 2/2 fluid overload #2 diabetes mellitus #3 coronary artery disease: #4 hypertension: W #5 end-stage renal disease: on HD # 6. 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, regualr schedule is TTS DVT and GI prophylaxis: SCDs, acid kimberly Subjective 24 Hr Interval Summary Free Text/Dictation SOB better, plan for HD today Exam/Review of Systems Vital Signs Vitals Vital Signs Date Time Temp Pulse Resp B/P Pulse Ox O2 Delivery O2 Flow Rate FiO2 06/02/17 12:00 92 06/02/17 11:34 98.2 20 156/87 98 06/02/17 08:00 Nasal Cannula 06/01/17 21:00 2.0 Intake and Output 06/01/17 06/01/17 06/02/17 15:00 23:00 07:00 Intake Total 350 ml 250 ml Output Total 50 ml Balance 350 ml 200 ml Exam Constitutional: alert Respiratory: clear to auscultation, congested cough, crackles/rales, diminished breath sounds Cardiovascular: nl pulses, regular rate and rhythm Gastrointestinal: non-tender, soft Musculoskeletal: muscle weakness, nl extremities to inspection, swelling 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: 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 CASHIER II-XII 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, nl mental status, nl speech, nl strength Results Result Diagram: 06/02/1728 06/02/17727 Results 24 hrs Laboratory Tests Test 06/01/17 18:16 06/01/17 20:48 06/02/17 07:28 06/02/17 08:35 Bedside Glucose 141 131 88 White Blood Count 7.9 Red Blood Count 3.03 L Hemoglobin 8.2 L Hematocrit 25.7 L Mean Corpuscular Volume 84.8 Mean Corpuscular Hemoglobin 27.1 L Mean Corpuscular Hemoglobin Concent 31.9 L Red Cell Distribution Width 13.9 Platelet Count 389 Mean Platelet Volume 8.8 Neutrophils % 69.0 Lymphocytes % 11.3 L Monocytes % 15.0 H Eosinophils % 3.7 Basophils % 0.6 Nucleated Red Blood Cells % 0.0 Neutrophils # 5.4 Lymphocytes # 0.9 Monocytes # 1.2 H Eosinophils # 0.3 Basophils # 0.1 Nucleated Red Blood Cells # 0.0 Prothrombin Time 15.3 H Prothrombin Time Ratio 1.2 INR International Normalized Ratio 1.20 Activated Partial Thromboplast Time 33.8 Sodium Level 134 L Potassium Level 4.2 Chloride Level 92 L Carbon Dioxide Level 34 H Anion Gap 12 Blood Urea Nitrogen 19 Creatinine 8.64 #H Glucose Level 87 Calcium Level 8.8 Iron Level 15 L Total Iron Binding Capacity 192 L Percent Iron Saturation 8 L Total Bilirubin 0.0 L Direct Bilirubin 0.00 Indirect Bilirubin 0.0 Aspartate Amino Transf (AST/SGOT) 25 Alanine Aminotransferase (ALT/SGPT) 25 Alkaline Phosphatase 60 Total Protein 7.2 Albumin 3.2 L Globulin 4.00 H Albumin/Globulin Ratio 0.80 Test 06/02/17 12:36 Bedside Glucose 99 Medications Medications Current Medications Alprazolam (Xanax) 0.25 mg Q8H PRN PO ANXIETY; Start 05/31/17 at 19:30 Aspirin (Halfprin) 81 mg DAILY PO Last administered on 06/02/17 09:26; Admin Dose 81 MG; Start 06/01/17 at 09:00 Atorvastatin Calcium (Lipitor) 20 mg QHS PO Last administered on 06/01/17 20: 51; Admin Dose 20 MG; Start 05/31/17 at 22:00 Bisacodyl (Dulcolax Supp) [address] ; Start 05/31/17 at 19:30 Carvedilol (Coreg) 25 mg BID PO Last administered on 06/01/17 20:57; Admin Dose 25 MG; Start 05/31/17 at 22:00 Clonidine HCl (Catapres-Tts 2 Patch) 0.2 patch Sa@09 TRANSDERM Last administered on 06/02/17 09:55; Admin Dose 0.2 PATCH; Start 06/02/17 at 09:00 Gabapentin (Neurontin) 100 mg QHS PO Last administered on 06/01/17 20:51; Admin Dose 100 MG; Start 05/31/17 at 22:00 Losartan Potassium (Cozaar) 50 mg BID PO Last administered on 06/01/17 20:51; Admin Dose 50 MG; Start 05/31/17 at 22:00 Multivit/Ca Carb/ B Cmplx/FA/Prenat (Estephanie-Doc) 1 tab DAILY PO Last administered on 06/02/17 09:26; Admin Dose 1 TAB; Start 06/01/17 at 09:00 Nifedipine (Procardia Xl) 60 mg BID PO Last administered on 06/01/17 22:17; Admin Dose 60 MG; Start 05/31/17 at 22:00 Nitroglycerin (Nitroglycerin (Sl Tab) 0.4 Mg) 0.4 tab [id number] PRN SL CHEST PAIN; Start 05/31/17 at 19:30 Senna (Senokot) 2 tab QHS PO Last administered on 06/01/17 20:50; Admin Dose 2 TAB; Start 05/31/17 at 22:00 Sodium Biphosphate/ Sodium Phosphate (Fleet Enema Pediatric) [address] CONSTIPATION; Start 05/31/17 at 19:30 Ticagrelor (Brilinta) 90 mg Q12 PO Last administered on 06/02/17 09:26; Admin Dose 90 MG; Start 05/31/17 at 22:00 Triamcinolone Acetonide (Kenalog 0.025% Oint) 1 applic BID TOP Last administered on 06/01/17 09:05; Admin Dose 1 APPLIC; Start 05/31/17 at 22:00 Ondansetron HCl (Zofran Inj) 4 mg Q6H PRN IV NAUSEA AND/OR VOMITING; Start 05/31/17 at 19:30 Acetaminophen (Tylenol Tab) 650 mg Q6H PRN PO PAIN LEVEL 1-3 OR FEVER; Start 05/31/17 at 19:30 Diagnostic Test (Pha) (Accu-Chek) 1 ea 02 XX ; Start 06/01/17 at 02:00 Miscellaneous Information 1 ea NOTE XX ; Start 05/31/17 at 23:00 Glucose (Glutose) 15 gm Q15M PRN PO DECREASED GLUCOSE; Start 05/31/17 at 23:00 Glucose (Glutose) 22.5 gm Q15M PRN PO DECREASED GLUCOSE; Start 05/31/17 at 23: 00 Dextrose (D50w Syringe) 25 ml Q15M PRN IV DECREASED GLUCOSE; Start 05/31/17 at 23:00 Dextrose (D50w Syringe) 50 ml Q15M PRN IV DECREASED GLUCOSE; Start 05/31/17 at 23:00 Glucagon (Glucagen) 1 mg Q15M PRN IM DECREASED GLUCOSE; Start 05/31/17 at 23:00 Glucose (Glutose) 15 gm Q15M PRN BUCCAL DECREASED GLUCOSE; Start 05/31/17 at 23 :00 Hydralazine HCl (Apresoline) 20 mg Q4H PRN IV ELEVATED SYSTOLIC BP; Start 06/01 at 01:30 Escitalopram Oxalate (Lexapro) 10 mg DAILY PO Last administered on 06/02/17 09 :26; Admin Dose 10 MG; Start 06/01/17 at 13:30 ROSE ZUNIGA MD Jun 02, 2017 14:47
--- NOTE | 2017-06-02 16:53 | CONS ---
Date/Time of Note Date/Time of Note DATE: 06/02/17 TIME: 16:51 Assessment/Plan Assessment/Plan Additional Assessment/Plan Hypertensive emergency SVT CAD s/p stent CHF hypertension diabetes hyperlipidemia ESRD on HD BP is better controlled tele in sinus rhythm Continue Coreg and Losartan Continue Clonidine TTS Confine ASA and Brilinta Continue Insulin Continue Lipitor HD as scheduled Trend Troponin Consultation Date/Type/Reason Admit Date/Time May 31, 2017 at 18:39 Initial Consult Date Exam/Review of Systems Vital Signs Vitals Vital Signs Date Time Temp Pulse Resp B/P Pulse Ox O2 Delivery O2 Flow Rate FiO2 06/02/17 16:00 79 06/02/17 15:41 98.0 20 132/72 98 06/02/17 08:00 Nasal Cannula 06/01/17 21:00 2.0 Intake and Output 06/01/17 06/01/17 06/02/17 15:00 23:00 07:00 Intake Total 350 ml 250 ml Output Total 50 ml Balance 350 ml 200 ml Exam Constitutional: alert, oriented Head: atraumatic, normocephalic Neck: non-tender, supple Respiratory: clear to auscultation Cardiovascular: regular rate and rhythm Gastrointestinal: nl liver, spleen, non-tender, soft Extremities: normal pulses Results Result Diagram: 06/02/1728 06/02/17727 Results 24 hrs Laboratory Tests Test 06/01/17 18:16 06/01/17 20:48 06/02/17 07:28 06/02/17 08:35 Bedside Glucose 141 131 88 White Blood Count 7.9 Red Blood Count 3.03 L Hemoglobin 8.2 L Hematocrit 25.7 L Mean Corpuscular Volume 84.8 Mean Corpuscular Hemoglobin 27.1 L Mean Corpuscular Hemoglobin Concent 31.9 L Red Cell Distribution Width 13.9 Platelet Count 389 Mean Platelet Volume 8.8 Neutrophils % 69.0 Lymphocytes % 11.3 L Monocytes % 15.0 H Eosinophils % 3.7 Basophils % 0.6 Nucleated Red Blood Cells % 0.0 Neutrophils # 5.4 Lymphocytes # 0.9 Monocytes # 1.2 H Eosinophils # 0.3 Basophils # 0.1 Nucleated Red Blood Cells # 0.0 Prothrombin Time 15.3 H Prothrombin Time Ratio 1.2 INR International Normalized Ratio 1.20 Activated Partial Thromboplast Time 33.8 Sodium Level 134 L Potassium Level 4.2 Chloride Level 92 L Carbon Dioxide Level 34 H Anion Gap 12 Blood Urea Nitrogen 19 Creatinine 8.64 #H Glucose Level 87 Calcium Level 8.8 Iron Level 15 L Total Iron Binding Capacity 192 L Percent Iron Saturation 8 L Total Bilirubin 0.0 L Direct Bilirubin 0.00 Indirect Bilirubin 0.0 Aspartate Amino Transf (AST/SGOT) 25 Alanine Aminotransferase (ALT/SGPT) 25 Alkaline Phosphatase 60 Total Protein 7.2 Albumin 3.2 L Globulin 4.00 H Albumin/Globulin Ratio 0.80 Test 06/02/17 12:36 Bedside Glucose 99 Medications Medications Current Medications Alprazolam (Xanax) 0.25 mg Q8H PRN PO ANXIETY; Start 05/31/17 at 19:30 Aspirin (Halfprin) 81 mg DAILY PO Last administered on 06/02/17 09:26; Admin Dose 81 MG; Start 06/01/17 at 09:00 Atorvastatin Calcium (Lipitor) 20 mg QHS PO Last administered on 06/01/17 20: 51; Admin Dose 20 MG; Start 05/31/17 at 22:00 Bisacodyl (Dulcolax Supp) 10 mg Q48H [place] ; Start 05/31/17 at 19:30 Carvedilol (Coreg) 25 mg BID PO Last administered on 06/01/17 20:57; Admin Dose 25 MG; Start 05/31/17 at 22:00 Clonidine HCl (Catapres-Tts 2 Patch) 0.2 patch Sa@09 TRANSDERM Last administered on 06/02/17 09:55; Admin Dose 0.2 PATCH; Start 06/02/17 at 09:00 Gabapentin (Neurontin) 100 mg QHS PO Last administered on 06/01/17 20:51; Admin Dose 100 MG; Start 05/31/17 at 22:00 Losartan Potassium (Cozaar) 50 mg BID PO Last administered on 06/01/17 20:51; Admin Dose 50 MG; Start 05/31/17 at 22:00 Multivit/Ca Carb/ B Cmplx/FA/Prenat (Estephanie-Doc) 1 tab DAILY PO Last administered on 06/02/17 09:26; Admin Dose 1 TAB; Start 06/01/17 at 09:00 Nifedipine (Procardia Xl) 60 mg BID PO Last administered on 06/01/17 22:17; Admin Dose 60 MG; Start 05/31/17 at 22:00 Nitroglycerin (Nitroglycerin (Sl Tab) 0.4 Mg) 0.4 tab [id number] PRN SL CHEST PAIN; Start 05/31/17 at 19:30 Senna (Senokot) 2 tab QHS PO Last administered on 06/01/17 20:50; Admin Dose 2 TAB; Start 05/31/17 at 22:00 Sodium Biphosphate/ Sodium Phosphate (Fleet Enema Pediatric) 118 ml Q72H PRN [place] CONSTIPATION; Start 05/31/17 at 19:30 Ticagrelor (Brilinta) 90 mg Q12 PO Last administered on 06/02/17 09:26; Admin Dose 90 MG; Start 05/31/17 at 22:00 Triamcinolone Acetonide (Kenalog 0.025% Oint) 1 applic BID TOP Last administered on 06/01/17 09:05; Admin Dose 1 APPLIC; Start 05/31/17 at 22:00 Ondansetron HCl (Zofran Inj) 4 mg Q6H PRN IV NAUSEA AND/OR VOMITING; Start 05/31/17 at 19:30 Acetaminophen (Tylenol Tab) 650 mg Q6H PRN PO PAIN LEVEL 1-3 OR FEVER; Start 05/31/17 at 19:30 Diagnostic Test (Pha) (Accu-Chek) 1 ea 02 XX ; Start 06/01/17 at 02:00 Miscellaneous Information 1 ea NOTE XX ; Start 05/31/17 at 23:00 Glucose (Glutose) 15 gm Q15M PRN PO DECREASED GLUCOSE; Start 05/31/17 at 23:00 Glucose (Glutose) 22.5 gm Q15M PRN PO DECREASED GLUCOSE; Start 05/31/17 at 23: 00 Dextrose (D50w Syringe) 25 ml Q15M PRN IV DECREASED GLUCOSE; Start 05/31/17 at 23:00 Dextrose (D50w Syringe) 50 ml Q15M PRN IV DECREASED GLUCOSE; Start 05/31/17 at 23:00 Glucagon (Glucagen) 1 mg Q15M PRN IM DECREASED GLUCOSE; Start 05/31/17 at 23:00 Glucose (Glutose) 15 gm Q15M PRN BUCCAL DECREASED GLUCOSE; Start 05/31/17 at 23 :00 Hydralazine HCl (Apresoline) 20 mg Q4H PRN IV ELEVATED SYSTOLIC BP; Start 06/01 at 01:30 Escitalopram Oxalate (Lexapro) 10 mg DAILY PO Last administered on 06/02/17 09 :26; Admin Dose 10 MG; Start 06/01/17 at 13:30 SHEA VELEZ M.D. Jun 02, 2017 16:53
[2017-06-02 18:19] LABS: HEPATITIS B CORE ANTIBODY NEGATIVE (NEGATIVE)
[2017-06-02] MEDS: BISACODYL 10 MG SUPP PR SCH (20:17)
[2017-06-02] MEDS: GABAPENTIN 100 MG CAP PO SCH (20:18)
[2017-06-02] MEDS: ATORVASTATIN 20 MG TAB PO SCH (20:19)
[2017-06-02] MEDS: SENNA TAB PO SCH (20:20)
[2017-06-03] VITALS (13 sets, daily range): BP systolic 124–167; BP diastolic 70–84; PULSE 74–86; RESP 18–19
[2017-06-03] MEDS: ACCU-CHEK XX SCH (02:00)
[2017-06-03] MEDS: INSULIN ASPART [NOVOLOG] 3 ML PEN SC SCH ×4 (07:55→21:00)
[2017-06-03] MEDS: SEVELAMER 800 MG TAB PO SCH ×3 (08:43→16:54)
[2017-06-03] MEDS: NIFEdipine (XL) 60 MG TAB PO SCH ×2 (08:43→21:00)
[2017-06-03] MEDS: MULTIVIT/CA CARB/B CMPLX/FA TAB PO SCH (08:44)
[2017-06-03] MEDS: ESCITALOPRAM 10 MG TAB PO SCH (08:45)
[2017-06-03] MEDS: ASPIRIN (EC) 81 MG TAB PO SCH (08:45)
[2017-06-03] MEDS: LOSARTAN 50 MG TAB PO SCH ×2 (08:46→21:00)
[2017-06-03] MEDS: TICAGRELOR 90 MG TABLET PO SCH ×2 (09:08→22:01)
--- NOTE | 2017-06-03 10:32 | PN ---
Date/Time of Note Date/Time of Note DATE: 06/03/17 TIME: 10:29 Assessment/Plan VTE Prophylaxis VTE Prophylaxis Intervention: other Lines/Catheters IV C[facility]ter Type (from [facility]): Saline Lock Urinary Cath still in place: No Assessment/Plan Chief Complaint/Hosp Course Nephrology follow up HISTORY OF PRESENT ILLNESS: This is a 66-year-old male with past medical history of ESRD who presents to [facility] Emergency Room with chest pain, shortness of breath. no nausea, melena, fever or new rash d/w Dr crowe and HD nurse REVIEW OF SYSTEMS: A 14-point review of systems reviewed. PHYSICAL EXAMINATION: HEENT: Normocephalic and atraumatic. HEART: Regular rate. LUNGS: Show diminished breath sounds throughout the base. no wheezing ABDOMEN: Soft, nontender to palpation EXTREMITIES: Negative for cyanosis or clubbing, no edema. SKIN: No rashes. Chest x-ray: Reviewed and shows bilateral pleural effusion right greater than left. ASSESSMENT AND PLAN: This is a 66-year-old male who presents with: 1. End-stage renal disease. The patient underwent hemodialysis two days ago. He will be evaluated daily for his dialytic needs. next hd in am. We will monitor vitals closely with supportive care. 2. Volume overload. The patient with possible chf exacerbation. Chest x-ray shows bilateral pleural effusion. Ultrafiltration with hemodialysis and monitor closely. 3. Diabetes. 4. anemia: will start IV iron. continue epogen with hd 5. HTN: BP at target after UF/HD. Meds were reviewed Problems: Exam/Review of Systems Vital Signs Vitals Vital Signs Date Time Temp Pulse Resp B/P Pulse Ox O2 Delivery O2 Flow Rate FiO2 06/03/17 08:33 84 06/03/17 08:25 98.0 18 167/82 98 06/03/17 04:00 Nasal Cannula 06/01/17 21:00 2.0 Intake and Output 06/02/17 06/02/17 06/03/17 15:00 23:00 07:00 Intake Total 300 ml 300 ml Output Total 3300 ml Balance -3000 ml 300 ml Results Result Diagram: 06/02/17 0728 06/02/17 0728 Results 24 hrs Laboratory Tests Test 06/02/17 12:36 06/02/17 16:25 06/02/17 17:51 06/02/17 20:02 Bedside Glucose 99 114 113 Hepatitis B Surface Antigen NEGATIVE Hepatitis B Surface Antibody POSITIVE H Hepatitis B Core Total Antibody NEGATIVE Test 06/03/17 08:03 Bedside Glucose 85 Medications Medications Current Medications Alprazolam (Xanax) 0.25 mg Q8H PRN PO ANXIETY; Start 05/31/17 at 19:30 Aspirin (Halfprin) 81 mg DAILY PO Last administered on 06/03/17 08:45; Admin Dose 81 MG; Start 06/01/17 at 09:00 Atorvastatin Calcium (Lipitor) 20 mg QHS PO Last administered on 06/02/17 20: 19; Admin Dose 20 MG; Start 05/31/17 at 22:00 Bisacodyl (Dulcolax Supp) 10 mg Q48H [place] Last administered on 06/02/17 20:17; Admin Dose 10 MG; Start 05/31/17 at 19:30 Carvedilol (Coreg) 25 mg BID PO Last administered on 06/03/17 08:44; Admin Dose 25 MG; Start 05/31/17 at 22:00 Clonidine HCl (Catapres-Tts 2 Patch) 0.2 patch Sa@09 TRANSDERM Last administered on 06/02/17 09:55; Admin Dose 0.2 PATCH; Start 06/02/17 at 09:00 Gabapentin (Neurontin) 100 mg QHS PO Last administered on 06/02/17 20:18; Admin Dose 100 MG; Start 05/31/17 at 22:00 Losartan Potassium (Cozaar) 50 mg BID PO Last administered on 06/03/17 08:46; Admin Dose 50 MG; Start 05/31/17 at 22:00 Multivit/Ca Carb/ B Cmplx/FA/Prenat (Estephanie-Doc) 1 tab DAILY PO Last administered on 06/03/17 08:44; Admin Dose 1 TAB; Start 06/01/17 at 09:00 Nifedipine (Procardia Xl) 60 mg BID PO Last administered on 06/03/17 08:43; Admin Dose 60 MG; Start 05/31/17 at 22:00 Nitroglycerin (Nitroglycerin (Sl Tab) 0.4 Mg) 0.4 tab [id number] PRN SL CHEST PAIN; Start 05/31/17 at 19:30 Senna (Senokot) 2 tab QHS PO Last administered on 06/02/17 20:20; Admin Dose 2 TAB; Start 05/31/17 at 22:00 Sodium Biphosphate/ Sodium Phosphate (Fleet Enema Pediatric) 118 ml Q72H PRN [place] CONSTIPATION; Start 05/31/17 at 19:30 Ticagrelor (Brilinta) 90 mg Q12 PO Last administered on 06/03/17 09:08; Admin Dose 90 MG; Start 05/31/17 at 22:00 Triamcinolone Acetonide (Kenalog 0.025% Oint) 1 applic BID TOP Last administered on 06/01/17 09:05; Admin Dose 1 APPLIC; Start 05/31/17 at 22:00 Ondansetron HCl (Zofran Inj) 4 mg Q6H PRN IV NAUSEA AND/OR VOMITING Last administered on 06/02/17 19:07; Admin Dose 4 MG; Start 05/31/17 at 19:30 Acetaminophen (Tylenol Tab) 650 mg Q6H PRN PO PAIN LEVEL 1-3 OR FEVER; Start 05/31/17 at 19:30 Diagnostic Test (Pha) (Accu-Chek) 1 ea 02 XX ; Start 06/01/17 at 02:00 Miscellaneous Information 1 ea NOTE XX ; Start 05/31/17 at 23:00 Glucose (Glutose) 15 gm Q15M PRN PO DECREASED GLUCOSE; Start 05/31/17 at 23:00 Glucose (Glutose) 22.5 gm Q15M PRN PO DECREASED GLUCOSE; Start 05/31/17 at 23: 00 Dextrose (D50w Syringe) 25 ml Q15M PRN IV DECREASED GLUCOSE; Start 05/31/17 at 23:00 Dextrose (D50w Syringe) 50 ml Q15M PRN IV DECREASED GLUCOSE; Start 05/31/17 at 23:00 Glucagon (Glucagen) 1 mg Q15M PRN IM DECREASED GLUCOSE; Start 05/31/17 at 23:00 Glucose (Glutose) 15 gm Q15M PRN BUCCAL DECREASED GLUCOSE; Start 05/31/17 at 23 :00 Hydralazine HCl (Apresoline) 20 mg Q4H PRN IV ELEVATED SYSTOLIC BP; Start 06/01 at 01:30 Escitalopram Oxalate (Lexapro) 10 mg DAILY PO Last administered on 06/03/17 08 :45; Admin Dose 10 MG; Start 06/01/17 at 13:30 JUANA SMITH DO Jun 03, 2017 10:32
--- NOTE | 2017-06-03 11:38 | PN ---
Date/Time of Note Date/Time of Note DATE: 06/03/17 TIME: 11:36 Assessment/Plan VTE Prophylaxis VTE Prophylaxis Intervention: SCD's Lines/Catheters IV Catheter Type (from Nrsg): Saline Lock Urinary Cath still in place: No Assessment/Plan Assessment/Plan #1 acute chf exacerbation 2/2 fluid overload #2 diabetes mellitus #3 coronary artery disease: #4 hypertension: W #5 end-stage renal disease: on HD # 6. Depression Plan: Continue home BP meds, s/p HD yesterday- further plan for HD as per nephrology. Clonidine patch for better BP cotnrol started on lexapro for BP control, pt follows at [facility] HD center and his platform consultant is Daniel Saldivar regualr schedule is TTS DVT and GI prophylaxis: SCDs, acid kimberly Subjective 24 Hr Interval Summary Free Text/Dictation s/p HD yesterday, no chest pain, no SOB< BP stable, Exam/Review of Systems Vital Signs Vitals Vital Signs Date Time Temp Pulse Resp B/P Pulse Ox O2 Delivery O2 Flow Rate FiO2 06/03/17 08:33 84 06/03/17 08:25 98.0 18 167/82 98 06/03/17 08:00 Nasal Cannula 06/01/17 21:00 2.0 Intake and Output 06/02/17 06/02/17 06/03/17 15:00 23:00 07:00 Intake Total 300 ml 300 ml Output Total 3300 ml Balance -3000 ml 300 ml Exam Constitutional: alert Respiratory: clear to auscultation, congested cough, crackles/rales, diminished breath sounds Cardiovascular: nl pulses, regular rate and rhythm Gastrointestinal: non-tender, soft Musculoskeletal: muscle weakness, nl extremities to inspection, swelling 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: QUILL BUNCHER AND SORTER II-XII intact, nl mental status, nl speech, nl strength Results Result Diagram: 06/02/1772706/02/1728 Results 24 hrs Laboratory Tests Test 06/02/17 12:36 06/02/17 16:25 06/02/17 17:51 06/02/17 20:02 Bedside Glucose 99 114 113 Hepatitis B Surface Antigen NEGATIVE Hepatitis B Surface Antibody POSITIVE H Hepatitis B Core Total Antibody NEGATIVE Test 06/03/17 08:03 Bedside Glucose 85 Medications Medications Current Medications Alprazolam (Xanax) 0.25 mg Q8H PRN PO ANXIETY; Start 05/31/17 at 19:30 Aspirin (Halfprin) 81 mg DAILY PO Last administered on 06/03/17 08:45; Admin Dose 81 MG; Start 06/01/17 at 09:00 Atorvastatin Calcium (Lipitor) 20 mg QHS PO Last administered on 06/02/17 20: 19; Admin Dose 20 MG; Start 05/31/17 at 22:00 Bisacodyl (Dulcolax Supp) 10 mg Q48H [place] Last administered on 06/02/17 20:17; Admin Dose 10 MG; Start 05/31/17 at 19:30 Carvedilol (Coreg) 25 mg BID PO Last administered on 06/03/17 08:44; Admin Dose 25 MG; Start 05/31/17 at 22:00 Clonidine HCl (Catapres-Tts 2 Patch) 0.2 patch Sa@09 TRANSDERM Last administered on 06/02/17 09:55; Admin Dose 0.2 PATCH; Start 06/02/17 at 09:00 Gabapentin (Neurontin) 100 mg QHS PO Last administered on 06/02/17 20:18; Admin Dose 100 MG; Start 05/31/17 at 22:00 Losartan Potassium (Cozaar) 50 mg BID PO Last administered on 06/03/17 08:46; Admin Dose 50 MG; Start 05/31/17 at 22:00 Multivit/Ca Carb/ B Cmplx/FA/Prenat (Estephanie-Doc) 1 tab DAILY PO Last administered on 06/03/17 08:44; Admin Dose 1 TAB; Start 06/01/17 at 09:00 Nifedipine (Procardia Xl) 60 mg BID PO Last administered on 06/03/17 08:43; Admin Dose 60 MG; Start 05/31/17 at 22:00 Nitroglycerin (Nitroglycerin (Sl Tab) 0.4 Mg) 0.4 tab [id number] PRN SL CHEST PAIN; Start 05/31/17 at 19:30 Senna (Senokot) 2 tab QHS PO Last administered on 06/02/17 20:20; Admin Dose 2 TAB; Start 05/31/17 at 22:00 Sodium Biphosphate/ Sodium Phosphate (Fleet Enema Pediatric) 118 ml Q72H PRN [place] CONSTIPATION; Start 05/31/17 at 19:30 Ticagrelor (Brilinta) 90 mg Q12 PO Last administered on 06/03/17 09:08; Admin Dose 90 MG; Start 05/31/17 at 22:00 Triamcinolone Acetonide (Kenalog 0.025% Oint) 1 applic BID TOP Last administered on 06/01/17 09:05; Admin Dose 1 APPLIC; Start 05/31/17 at 22:00 Ondansetron HCl (Zofran Inj) 4 mg Q6H PRN IV NAUSEA AND/OR VOMITING Last administered on 06/02/17 19:07; Admin Dose 4 MG; Start 05/31/17 at 19:30 Acetaminophen (Tylenol Tab) 650 mg Q6H PRN PO PAIN LEVEL 1-3 OR FEVER; Start 05/31/17 at 19:30 Diagnostic Test (Pha) (Accu-Chek) 1 ea 02 XX ; Start 06/01/17 at 02:00 Miscellaneous Information 1 ea NOTE XX ; Start 05/31/17 at 23:00 Glucose (Glutose) 15 gm Q15M PRN PO DECREASED GLUCOSE; Start 05/31/17 at 23:00 Glucose (Glutose) 22.5 gm Q15M PRN PO DECREASED GLUCOSE; Start 05/31/17 at 23: 00 Dextrose (D50w Syringe) 25 ml Q15M PRN IV DECREASED GLUCOSE; Start 05/31/17 at 23:00 Dextrose (D50w Syringe) 50 ml Q15M PRN IV DECREASED GLUCOSE; Start 05/31/17 at 23:00 Glucagon (Glucagen) 1 mg Q15M PRN IM DECREASED GLUCOSE; Start 05/31/17 at 23:00 Glucose (Glutose) 15 gm Q15M PRN BUCCAL DECREASED GLUCOSE; Start 05/31/17 at 23 :00 Hydralazine HCl (Apresoline) 20 mg Q4H PRN IV ELEVATED SYSTOLIC BP; Start 06/01 at 01:30 Escitalopram Oxalate 10 mg 10 mg DAILY PO Last administered on 06/03/17 08:45 ; Admin Dose 10 MG; Start 06/01/17 at 13:30 Ferric Sodium Gluconate Complex/ Sodium Chloride (Ferrlecit/NS) 110 ml @ 110 mls/hr Q24H IVPB ; Start 06/03/17 at 12:00; Stop 06/07/17 at 12:59 ROSE ZUNIGA MD Jun 03, 2017 11:38
[2017-06-03] MEDS: TRIAMCINOLONE ACET 0.025% 15 GM OINT TOP SCH ×2 (11:52→22:05)
[2017-06-03] MEDS: SOD FERRIC GLUC COMPLX 125 MG in SOD CHLORIDE 0.9% 100 ML IVPB SCH (12:32)
--- NOTE | 2017-06-03 16:28 | CONS ---
Date/Time of Note Date/Time of Note DATE: 06/03/17 TIME: 16:26 Assessment/Plan Assessment/Plan Additional Assessment/Plan Hypertensive emergency SVT CAD s/p stent CHF hypertension diabetes hyperlipidemia ESRD on HD Hemodynamically stable tele in sinus rhythm Continue Coreg and Losartan Continue Clonidine TTS Confine ASA and Brilinta Continue Insulin Continue Lipitor HD as scheduled Consultation Date/Type/Reason Admit Date/Time May 31, 2017 at 18:39 Exam/Review of Systems Vital Signs Vitals Vital Signs Date Time Temp Pulse Resp B/P Pulse Ox O2 Delivery O2 Flow Rate FiO2 06/03/17 16:14 79 06/03/17 13:43 98.0 18 149/78 98 06/03/17 08:00 Nasal Cannula 06/01/17 21:00 2.0 Intake and Output 06/02/17 06/02/17 06/03/17 15:00 23:00 07:00 Intake Total 300 ml 300 ml Output Total 3300 ml Balance -3000 ml 300 ml Exam Constitutional: alert, oriented Head: atraumatic, normocephalic Neck: non-tender, supple Respiratory: clear to auscultation Cardiovascular: regular rate and rhythm Gastrointestinal: nl liver, spleen, non-tender, soft Extremities: normal pulses Results Result Diagram: 06/02/1772706/02/17727 Results 24 hrs Laboratory Tests Test 06/02/17 17:51 06/02/17 20:02 06/03/17 08:03 06/03/17 11:48 Bedside Glucose 114 113 85 163 Medications Medications Current Medications Alprazolam (Xanax) 0.25 mg Q8H PRN PO ANXIETY; Start 05/31/17 at 19:30 Aspirin (Halfprin) 81 mg DAILY PO Last administered on 06/03/17 08:45; Admin Dose 81 MG; Start 06/01/17 at 09:00 Atorvastatin Calcium (Lipitor) 20 mg QHS PO Last administered on 06/02/17 20: 19; Admin Dose 20 MG; Start 05/31/17 at 22:00 Bisacodyl (Dulcolax Supp) 10 mg Q48H [place] Last administered on 06/02/17 20:17; Admin Dose 10 MG; Start 05/31/17 at 19:30 Carvedilol (Coreg) 25 mg BID PO Last administered on 06/03/17 08:44; Admin Dose 25 MG; Start 05/31/17 at 22:00 Clonidine HCl (Catapres-Tts 2 Patch) 0.2 patch Sa@09 TRANSDERM Last administered on 06/02/17 09:55; Admin Dose 0.2 PATCH; Start 06/02/17 at 09:00 Gabapentin (Neurontin) 100 mg QHS PO Last administered on 06/02/17 20:18; Admin Dose 100 MG; Start 05/31/17 at 22:00 Losartan Potassium (Cozaar) 50 mg BID PO Last administered on 06/03/17 08:46; Admin Dose 50 MG; Start 05/31/17 at 22:00 Multivit/Ca Carb/ B Cmplx/FA/Prenat (Estephanie-Doc) 1 tab DAILY PO Last administered on 06/03/17 08:44; Admin Dose 1 TAB; Start 06/01/17 at 09:00 Nifedipine (Procardia Xl) 60 mg BID PO Last administered on 06/03/17 08:43; Admin Dose 60 MG; Start 05/31/17 at 22:00 Nitroglycerin (Nitroglycerin (Sl Tab) 0.4 Mg) 0.4 tab [id number] PRN SL CHEST PAIN; Start 05/31/17 at 19:30 Senna (Senokot) 2 tab QHS PO Last administered on 06/02/17 20:20; Admin Dose 2 TAB; Start 05/31/17 at 22:00 Sodium Biphosphate/ Sodium Phosphate (Fleet Enema Pediatric) 118 ml Q72H PRN [place] CONSTIPATION; Start 05/31/17 at 19:30 Ticagrelor (Brilinta) 90 mg Q12 PO Last administered on 06/03/17 09:08; Admin Dose 90 MG; Start 05/31/17 at 22:00 Triamcinolone Acetonide (Kenalog 0.025% Oint) 1 applic BID TOP Last administered on 06/03/17 11:52; Admin Dose 1 APPLIC; Start 05/31/17 at 22:00 Ondansetron HCl (Zofran Inj) 4 mg Q6H PRN IV NAUSEA AND/OR VOMITING Last administered on 06/02/17 19:07; Admin Dose 4 MG; Start 05/31/17 at 19:30 Acetaminophen (Tylenol Tab) 650 mg Q6H PRN PO PAIN LEVEL 1-3 OR FEVER; Start 05/31/17 at 19:30 Diagnostic Test (Pha) (Accu-Chek) 1 ea 02 XX ; Start 06/01/17 at 02:00 Miscellaneous Information 1 ea NOTE XX ; Start 05/31/17 at 23:00 Glucose (Glutose) 15 gm Q15M PRN PO DECREASED GLUCOSE; Start 05/31/17 at 23:00 Glucose (Glutose) 22.5 gm Q15M PRN PO DECREASED GLUCOSE; Start 05/31/17 at 23: 00 Dextrose (D50w Syringe) 25 ml Q15M PRN IV DECREASED GLUCOSE; Start 05/31/17 at 23:00 Dextrose (D50w Syringe) 50 ml Q15M PRN IV DECREASED GLUCOSE; Start 05/31/17 at 23:00 Glucagon (Glucagen) 1 mg Q15M PRN IM DECREASED GLUCOSE; Start 05/31/17 at 23:00 Glucose (Glutose) 15 gm Q15M PRN BUCCAL DECREASED GLUCOSE; Start 05/31/17 at 23 :00 Hydralazine HCl (Apresoline) 20 mg Q4H PRN IV ELEVATED SYSTOLIC BP; Start 06/01 at 01:30 Escitalopram Oxalate 10 mg 10 mg DAILY PO Last administered on 06/03/17 08:45 ; Admin Dose 10 MG; Start 06/01/17 at 13:30 Ferric Sodium Gluconate Complex/ Sodium Chloride (Ferrlecit/NS) 110 ml @ 110 mls/hr Q24H IVPB Last administered on 06/03/17 12:32; Admin Dose 110 MLS/HR; Start 06/03/17 at 12:00; Stop 06/07/17 at 12:59 SHEA VELEZ M.D. Jun 03, 2017 16:28
--- NOTE | 2017-06-03 17:35 | RADRPT ---
Echocardiogram Report Patient Name: DEBBIE WILBURN Gender: Male Date: 1950 Study Date: 01-Jun-2017 Proposal Rep: Rodrigo. [facility] Location: [id number] Ref. Physician: KONG MAZARIEGOS Quality: Good Procedures: Transthoracic echocardiogram with complete 2D, M-Mode, and doppler examination. Indications: Congestive Heart Failure. 2D/M Mode Doppler Measurement Value Normal Ranges Measurement Value Normal Ranges AoR Diam MM 3.6 cm ANTONELLA Vmax 3.5 cm2 LA/Ao MM 1.3 ANTONELLA VTI 3.5 cm2 LA Dimen MM 4.7 cm AV Mean [place] 1.2 m/sec LVIDd 2D 4.9 3.5 - 5.6 cm AV Mean PG 7.0 mmHg LVIDs 2D 3.1 2.1 - 4.1 cm AV Peak [place] 1.6 m/sec FS 2D 36.8 % AV Peak PG 11.0 mmHg LVPWd 2D 1.3 0.6 - 1.1 cm AV VTI 31.8 cm IVSd 2D 0.6 0.6 - 1.1 cm LVOT Mean [place] 0.8 m/sec IVS/LVPW 2D 0.5 LVOT Mean PG 3.0 mmHg EDV 2D 117.0 cm3 LVOT Peak [place] 1.2 m/sec ESV 2D 29.5 cm3 LVOT Peak PG 6.0 mmHg LA Dimen 2D 4.7 2.3 - 4.0 cm LVOT VTI 23.0 cm LVOT Diam 2.5 cm MV E Peak [place] 0.9 m/sec LVOT Area 4.9 cm2 MV A Peak [place] 1.0 m/sec MV E/A 0.9 MV Decel Time 222 msec MV E/A 0.9 TR Peak [place] 2.6 m/sec TR Peak PG 27.0 mmHg RVSP 35.0 mmHg Findings Left Ventricle: Normal left ventricular systolic function. Normal left ventricular cavity size. Mild concentric left ventricular hypertrophy. Ejection fraction is visually estimated at 55 %. Tissue Doppler/Mitral Doppler indices are consistent with pseudonormalization with mildly elevated left atrial pressure (Stage II diastolic dysfunction). Right Ventricle: Normal right ventricular size. Normal right ventricular systolic function. Left Atrium: The left atrium is normal in size. Right Atrium: The right atrium is normal in size. Mitral Valve: Mitral valve leaflets appear mildly thickened. Aortic Valve: No significant aortic stenosis or insufficiency. Aortic cusps appear mildly calcified. Tricuspid Valve: Normal appearance and function of the tricuspid valve with trace physiologic regurgitation. Normal right ventricular systolic pressure. Pulmonic Valve: There is trace pulmonic regurgitation. Pericardium: Small pericardial effusion. Aorta: Normal aortic root. IVC: Dilated IVC with respiratory collapse consistent with elevated right atrial pressure. Pulmonary Artery: Normal pulmonary artery size. Conclusions 1.Normal left ventricular systolic function. Normal left ventricular cavity size. Mild concentric left ventricular hypertrophy. Ejection fraction is visually estimated at 55 %. Tissue Doppler/Mitral Doppler indices are consistent with pseudonormalization with mildly elevated left atrial pressure (Stage II diastolic dysfunction). 2.Normal right ventricular size. Normal right ventricular systolic function. 3.Mitral valve leaflets appear mildly thickened. 4.No significant aortic stenosis or insufficiency. Aortic cusps appear mildly calcified. 5.Normal appearance and function of the tricuspid valve with trace physiologic regurgitation. Normal right ventricular systolic pressure. 6.Small pericardial effusion. Electronically Signed By: Avtar Wilder 03-Jun-2017 17:34:39 -0700 Patient Name: DEBBIE WILBURN Study Date: 01-Jun-2017 [id number]
[2017-06-03] MEDS: GABAPENTIN 100 MG CAP PO SCH (21:00)
[2017-06-03] MEDS: ATORVASTATIN 20 MG TAB PO SCH (21:54)
[2017-06-03] MEDS: SENNA TAB PO SCH (21:55)
[2017-06-04] VITALS (21 sets, daily range): BP systolic 95–149; BP diastolic 55–83; PULSE 66–153; RESP 17–20
[2017-06-04] MEDS: ACCU-CHEK XX SCH (02:00)
[2017-06-04 06:11] LABS: BASOPHIL # 0.1 10^3/ul (0.0-0.1); BASOPHILS % 0.7 % (0.0-2.0); EOSINOPHILS # 0.2 10^3/ul (0.0-0.5); EOSINOPHILS % 2.7 % (0.0-7.0); HEMOGLOBIN 7.8 g/dl (14.0-18.0); LYMPHOCYTES # 0.9 10^3/ul (0.8-2.9); LYMPHOCYTES % 12.6 % (15.0-51.0); MEAN CORPUSCULAR HEMOGLOBIN 27.3 pg (29.0-33.0); MEAN CORPUSCULAR HGB CONC 32.5 g/dl (32.0-37.0); MEAN CORPUSCULAR VOLUME 83.9 fl (82.0-101.0); MEAN PLATELET VOLUME 8.6 fl (7.4-10.4); MONOCYTE # 1.1 10^3/ul (0.3-0.9); MONOCYTES % 15.8 % (0.0-11.0); NEUTROPHIL # 4.8 10^3/ul (1.6-7.5); NEUTROPHILS % 67.9 % (39.0-77.0); PLATELET COUNT 356 10^3/UL (140-415); RED BLOOD COUNT 2.86 10^6/ul (4.70-6.10); RED CELL DISTRIBUTION WIDTH 13.6 % (11.5-14.5)
--- NOTE | 2017-06-04 06:40 | CONS ---
DATE OF ADMISSION: 05/31/2017 DATE OF CONSULTATION: 06/01/2017 REASON FOR CONSULTATION: Supraventricular tachycardia. HISTORY OF PRESENT ILLNESS: The patient is a 66-year-old gentleman who was transferred from rehab c [facility] for hemodialysis. At hemodialysis, he got a little chest discomfort, shortness of breath and dizziness. Soon after dialysis and subsequently 911 was called and patient was transferred to the [facility]. In the ER, a 12-lead EKG was done, and the patient was found to be in supraventricular tachycardia. Subsequently, IV Cardizem, which sinus tachycardia and bolton bsequently sinus rhythm. Denies any nausea, vomiting; denies headache or blurry vision. However, h is systolic blood pressure in the ER was in the 200s. PAST MEDICAL HISTORY: Significant for: 1. Hypertension. 2. Diabetes mellitus. 3. Dyslipidemia. 4. End-stage renal disease on hemodialysis for the last 6 years. 5. Congestive heart failure. 6. Coronary artery disease status post stent. SOCIAL HISTORY: No smoking, alcohol, or recreational drugs. ALLERGIES: PENICILLIN. CURRENT MEDICATIONS: Include: 1. Coreg. 2. Losartan. 3. Procardia. 4. Aspirin. 5. Lexapro. 6. Renagel. 7. Insulin. 8. Brilinta. 9. Lipitor. 10. Gabapentin. 11. Clonidine. REVIEW OF SYSTEMS: Unremarkable except that mentioned in the HPI. PHYSICAL EXAMINATION: VITAL SIGNS: Temperature 98.6, heart rate of 94, blood pressure 178/84 mmHg, breathing at 21, and s aturating 96%. GENERAL: Patient awake, alert, oriented, no apparent distress. NECK: No JVD or carotid bruit. CARDIOVASCULAR: Regular rate and rhythm; no murmur, rub or gallop. LUNGS: Clear to auscultation. ABDOMEN: Soft. Bowel sounds are present. There is no organomegaly. EXTREMITIES: No pedal edema. Pedal pulses are full bilaterally. DIAGNOSTIC DATA: 1. A 12-lead EKG done on 06/01 at 1331 shows supraventricular tachycardia with a ventricular rate o f 148 beats per minute, normal NH, normal QRS and normal QT intervals. There are nonspecific ST-T w ave changes following EKG done. 2. Chest x-ray showed moderate cardiomegaly with bilateral pleural effusion, right more than left. LABORATORY DATA: WBC 7.5, hemoglobin 8, hematocrit 27, platelets 351. Sodium 137, potassium 4.1, c hloride 93, CO2 of 33, creatinine 6.11. Troponin 10.5, shows 0.12, 0.16 and 0.14 and 0.1. BN P 7400. ASSESSMENT AND PLAN: A 66-year-old gentleman with: 1. Acute exacerbation of congestive heart failure. 2. Coronary artery disease, status post stenting. 3. Possible ventricular tachycardia. 4. Hypertension. 5. Diabetes mellitus. 6. Dyslipidemia. 7. Hypertensive emergency. 8. Abnormal cardiogram. Review of 12-lead EKG shows the patient was in SVT, subsequently was converted to sinus rhythm with IV Cardizem. Since then, the patient has been in sinus rhythm. A chest x-ray shows congestion with pleural effusion. RECOMMENDATIONS: 1. Chest ultrasound and thoracentesis if clinically indicated. 2. Continue Coreg and Losartan. 3. Continue Procardia. 4. Continue aspirin and Brilinta. 5. Continue insulin. 6. Continue Lipitor. 7. Continue clonidine transdermal patch. 8. Continue hemodialysis as scheduled. 9. Echocardiogram to assess for systolic function and to rule out for pulmonary hypertension and pe ricardial disease. Dictated By: SHEA VELEZ MD SR/YADY Conf#: [id number] DID#: [id number]
[2017-06-04 06:45] LABS: ALBUMIN 3.1 g/dl (3.3-4.9); ALBUMIN/GLOBULIN RATIO 0.83; BILIRUBIN,INDIRECT 0.1 mg/dl (0-1.1); BILIRUBIN,TOTAL 0.1 mg/dl (0.2-1.3); CALCIUM 8.5 mg/dl (8.4-10.2); CREATININE 8.28 mg/dl (0.61-1.24); POTASSIUM 4.4 mmol/L (3.5-5.1); TOTAL PROTEIN 6.8 g/dl (6.1-8.1)
[2017-06-04 06:51] LABS: INR 1.17; PT RATIO 1.2
[2017-06-04 06:52] LABS: PARTIAL THROMBOPLASTIN TIME 37.1 Sec (25.0-35.0)
[2017-06-04] MEDS: INSULIN ASPART [NOVOLOG] 3 ML PEN SC SCH ×4 (07:55→21:00)
[2017-06-04] MEDS: MULTIVIT/CA CARB/B CMPLX/FA TAB PO SCH (08:03)
[2017-06-04] MEDS: TRIAMCINOLONE ACET 0.025% 15 GM OINT TOP SCH ×2 (08:03→21:25)
[2017-06-04] MEDS: ESCITALOPRAM 10 MG TAB PO SCH (08:04)
[2017-06-04] MEDS: SEVELAMER 800 MG TAB PO SCH ×3 (08:04→16:59)
[2017-06-04] MEDS: TICAGRELOR 90 MG TABLET PO SCH ×2 (08:07→21:25)
[2017-06-04] MEDS: ASPIRIN (EC) 81 MG TAB PO SCH (08:09)
[2017-06-04] MEDS: NIFEdipine (XL) 60 MG TAB PO SCH (08:09)
[2017-06-04] MEDS: LOSARTAN 50 MG TAB PO SCH ×2 (08:09→21:22)
[2017-06-04] MEDS ORDERED: COLCHICINE 0.6 MG TAB PO SCH (09:30)
--- NOTE | 2017-06-04 10:42 | PN ---
Date/Time of Note Date/Time of Note DATE: 06/04/17 TIME: 10:42 Assessment/Plan VTE Prophylaxis VTE Prophylaxis Intervention: ambulation Lines/Catheters IV Catheter Type (from [facility]): Saline Lock Urinary Cath still in place: No Assessment/Plan Chief Complaint/Hosp Course 66-year-old fdc resident with dialysis, diabetes, hypertension, and coronary disease who presents with shortness of breath 1. Hypoxic respiratory failure secondary to volume overload secondary to ESRD. Resolved. -Hemodialysis for fluid removal. -Wean off oxygen. 2. End-stage renal disease, HD T.T.TH -Dialysis per nephrology colleagues. 3. Diastolic congestive heart failure. Echo with preserved ejection fraction. -Continue medical optimization. 4.Pleural effusion,bilateral on Xray 05/31/17.Patient with overall improvement in respiratory status. -Consider CT chest to reevaluate and if indicated thoracentesis. 5. Coronary artery disease. Status post PCI in the past. -Continue medical optimization 6. Diabetes, Type 2. Well controlled. A1C 6.6 -Continue Accu-Cheks/ISS. 7. Anemia of chronic kidney disease + iron deficiency. -Continue iron replacement. Epogen per nephrology colleagues. 8. Essential hypertension. -Continue home medications. 9. Depression -On Lexapro DVT and GI prophylaxis: SCDs, acid kimberly Patient was seen in collaboration with Dr. Hutchinson. Problems: Subjective 24 Hr Interval Summary Free Text/Dictation Patient lying comfortable. Normal work of breathing. Denies any chest pain, palpitation or shortness of breath. Exam/Review of Systems Vital Signs Vitals Vital Signs Date Time Temp Pulse Resp B/P Pulse Ox O2 Delivery O2 Flow Rate FiO2 06/04/17 08:19 76 06/04/17 07:53 97.6 20 133/71 96 06/03/17 19:38 Nasal Cannula 06/01/17 21:00 2.0 Intake and Output 06/03/17 06/03/17 06/04/17 15:00 23:00 07:00 Intake Total 110 ml 700 ml 250 ml Balance 110 ml 700 ml 250 ml Exam General: Well developed,adequately built, not in any acute distress . HEENT: Normocephalic, Atraumatic, No laceration or hematoma; Eyes: PEERL, Conjunctiva clear, Anicteric sclera Neck: Supple without any lymphadenopathy, nontender, no JVD, no carotid bruits, trachea midline, no thyromegaly Cardiac: S1, S2 auscultated, regular rhythm and rate, no mumurs or gallop Pulmonary: Diminished breath sound bibasilar. Normal respiratory effort. Chest clear to auscultation bilaterally, no adventitious breath sounds GI: Abdomen normal to inspection. Soft, non tender, non- distended, no masses, no rebound tenderness or guarding. Bowel sounds active on all four quadrants Genitourinary: Deferred Extremities: No cyanosis, clubbing, or edema. Pulses [2+] bilaterally. Full ROM on all four extremities. No focal weakness appreciated. Neurologic: Alert to person, place, time, and situation. Affect appropriate, intact sensation. Skin: Clean,dry, and intact. No ecchymosis, no rashes, or lesions Acces: Left upper arm AV shunt. Results Result Diagram: 06/04/17 0550 06/04/17 0550 Results 24 hrs Laboratory Tests Test 06/03/17 11:48 06/03/17 16:51 06/03/17 17:53 06/03/17 21:52 Bedside Glucose 163 168 184 Troponin I 0.038 Test 06/04/17 00:50 06/04/17 05:50 06/04/17 08:00 Troponin I 0.037 0.042 White Blood Count 7.0 Red Blood Count 2.86 L Hemoglobin 7.8 L Hematocrit 24.0 L Mean Corpuscular Volume 83.9 Mean Corpuscular Hemoglobin 27.3 L Mean Corpuscular Hemoglobin Concent 32.5 Red Cell Distribution Width 13.6 Platelet Count 356 Mean Platelet Volume 8.6 Neutrophils % 67.9 Lymphocytes % 12.6 L Monocytes % 15.8 H Eosinophils % 2.7 Basophils % 0.7 Nucleated Red Blood Cells % 0.0 Neutrophils # 4.8 Lymphocytes # 0.9 Monocytes # 1.1 H Eosinophils # 0.2 Basophils # 0.1 Nucleated Red Blood Cells # 0.0 Prothrombin Time 15.0 H Prothrombin Time Ratio 1.2 INR International Normalized Ratio 1.17 Activated Partial Thromboplast Time 37.1 H Sodium Level 136 Potassium Level 4.4 Chloride Level 95 L Carbon Dioxide Level 32 H Anion Gap 13 Blood Urea Nitrogen 18 Creatinine 8.28 H Glucose Level 120 Calcium Level 8.5 Total Bilirubin 0.1 L Direct Bilirubin 0.00 Indirect Bilirubin 0.1 Aspartate Amino Transf (AST/SGOT) 16 Alanine Aminotransferase (ALT/SGPT) 26 Alkaline Phosphatase 60 Total Protein 6.8 Albumin 3.1 L Globulin 3.70 H Albumin/Globulin Ratio 0.83 Bedside Glucose 116 Medications Medications Current Medications Alprazolam (Xanax) 0.25 mg Q8H PRN PO ANXIETY; Start 05/31/17 at 19:30 Aspirin (Halfprin) 81 mg DAILY PO Last administered on 06/04/17 08:09; Admin Dose 81 MG; Start 06/01/17 at 09:00 Atorvastatin Calcium (Lipitor) 20 mg QHS PO Last administered on 06/03/17 21: 54; Admin Dose 20 MG; Start 05/31/17 at 22:00 Bisacodyl (Dulcolax Supp) 10 mg Q48H [place] Last administered on 06/02/17 20:17; Admin Dose 10 MG; Start 05/31/17 at 19:30 Carvedilol (Coreg) 25 mg BID PO Last administered on 06/03/17 08:44; Admin Dose 25 MG; Start 05/31/17 at 22:00 Clonidine HCl (Catapres-Tts 2 Patch) 0.2 patch Sa@09 TRANSDERM Last administered on 06/02/17 09:55; Admin Dose 0.2 PATCH; Start 06/02/17 at 09:00 Gabapentin (Neurontin) 100 mg QHS PO Last administered on 06/03/17 21:00; Admin Dose 100 MG; Start 05/31/17 at 22:00 Losartan Potassium (Cozaar) 50 mg BID PO Last administered on 06/03/17 08:46; Admin Dose 50 MG; Start 05/31/17 at 22:00 Multivit/Ca Carb/ B Cmplx/FA/Prenat (Estephanie-Doc) 1 tab DAILY PO Last administered on 06/04/17 08:03; Admin Dose 1 TAB; Start 06/01/17 at 09:00 Nifedipine (Procardia Xl) 60 mg BID PO Last administered on 06/03/17 08:43; Admin Dose 60 MG; Start 05/31/17 at 22:00 Nitroglycerin (Nitroglycerin (Sl Tab) 0.4 Mg) 0.4 tab [id number] PRN SL CHEST PAIN; Start 05/31/17 at 19:30 Senna (Senokot) 2 tab QHS PO Last administered on 06/03/17 21:55; Admin Dose 2 TAB; Start 05/31/17 at 22:00 Sodium Biphosphate/ Sodium Phosphate (Fleet Enema Pediatric) 118 ml Q72H PRN [place] CONSTIPATION; Start 05/31/17 at 19:30 Ticagrelor (Brilinta) 90 mg Q12 PO Last administered on 06/04/17 08:07; Admin Dose 90 MG; Start 05/31/17 at 22:00 Triamcinolone Acetonide (Kenalog 0.025% Oint) 1 applic BID TOP Last administered on 06/04/17 08:03; Admin Dose 1 APPLIC; Start 05/31/17 at 22:00 Ondansetron HCl (Zofran Inj) 4 mg Q6H PRN IV NAUSEA AND/OR VOMITING Last administered on 06/02/17 19:07; Admin Dose 4 MG; Start 05/31/17 at 19:30 Acetaminophen (Tylenol Tab) 650 mg Q6H PRN PO PAIN LEVEL 1-3 OR FEVER; Start 05/31/17 at 19:30 Diagnostic Test (Pha) (Accu-Chek) 1 ea 02 XX ; Start 06/01/17 at 02:00 Miscellaneous Information 1 ea NOTE XX ; Start 05/31/17 at 23:00 Glucose (Glutose) 15 gm Q15M PRN PO DECREASED GLUCOSE; Start 05/31/17 at 23:00 Glucose (Glutose) 22.5 gm Q15M PRN PO DECREASED GLUCOSE; Start 05/31/17 at 23: 00 Dextrose (D50w Syringe) 25 ml Q15M PRN IV DECREASED GLUCOSE; Start 05/31/17 at 23:00 Dextrose (D50w Syringe) 50 ml Q15M PRN IV DECREASED GLUCOSE; Start 05/31/17 at 23:00 Glucagon (Glucagen) 1 mg Q15M PRN IM DECREASED GLUCOSE; Start 05/31/17 at 23:00 Glucose (Glutose) 15 gm Q15M PRN BUCCAL DECREASED GLUCOSE; Start 05/31/17 at 23 :00 Hydralazine HCl (Apresoline) 20 mg Q4H PRN IV ELEVATED SYSTOLIC BP; Start 06/01 at 01:30 Escitalopram Oxalate 10 mg 10 mg DAILY PO Last administered on 06/04/17 08:04 ; Admin Dose 10 MG; Start 06/01/17 at 13:30 Ferric Sodium Gluconate Complex/ Sodium Chloride (Ferrlecit/NS) 110 ml @ 110 mls/hr Q24H IVPB Last administered on 06/03/17 12:32; Admin Dose 110 MLS/HR; Start 06/03/17 at 12:00; Stop 06/07/17 at 12:59 Naproxen (Naprosyn) 250 mg TID PO ; Start 06/04/17 at 13:00 Colchicine (Colchicine) 0.3 mg BID PO ; Start 06/04/17 at 09:30 MELISSA GUZMAN NP Jun 04, 2017 10:42
[2017-06-04] MEDS: NAPROXEN 250 MG TAB PO SCH ×2 (12:09→21:21)
[2017-06-04] MEDS: SOD FERRIC GLUC COMPLX 125 MG in SOD CHLORIDE 0.9% 100 ML IVPB SCH (12:09)
[2017-06-04] MEDS: COLCHICINE 0.6 MG TAB PO SCH ×2 (12:10→21:21)
[2017-06-04] MEDS ORDERED: AMIODARONE 150MG/D5W BOLUS 100 ML IV ONE (14:30)
--- NOTE | 2017-06-04 14:45 | PN ---
Date/Time of Note Date/Time of Note DATE: 06/04/17 TIME: 14:45 Assessment/Plan VTE Prophylaxis VTE Prophylaxis Intervention: other Lines/Catheters IV [facility] Type [facility]from [facility] Saline Lock Urinary Cath still in place: No Assessment/Plan Chief Complaint/Hosp Course Nephrology follow up HISTORY OF PRESENT ILLNESS: This is a 66-year-old male with past medical history of ESRD who presents to [facility] with chest pain, shortness of breath. no nausea, melena, fever or new rash seen on hd today d/w Dr crowe and HD nurse REVIEW OF SYSTEMS: A 14-point review of systems reviewed. PHYSICAL EXAMINATION: HEENT: Normocephalic and atraumatic. HEART: Regular rate. LUNGS: Show diminished breath sounds throughout the base. no wheezing ABDOMEN: Soft, nontender to palpation EXTREMITIES: Negative for cyanosis or clubbing, no edema. SKIN: No rashes. Chest x-ray: Reviewed and shows bilateral pleural effusion right greater than left. ASSESSMENT AND PLAN: This is a 66-year-old male who presents with: 1. End-stage renal disease. The patient underwent hemodialysis two days ago. He will be evaluated daily for his dialytic needs. continue with hd today. We will monitor vitals closely with supportive care. 2. Volume overload. The patient with possible chf exacerbation. Chest x-ray shows bilateral pleural effusion. Ultrafiltration with hemodialysis and monitor closely. 3. Diabetes. 4. anemia: will start IV iron. continue epogen with hd 5. HTN: BP at target after UF/HD. Meds were reviewed Problems: Exam/Review of Systems Vital Signs Vitals Vital Signs Date Time Temp Pulse Resp B/P Pulse Ox O2 Delivery O2 Flow Rate FiO2 06/04/17 13:31 153 06/04/17 11:06 97.8 17 135/71 92 06/03/17 19:38 Nasal Cannula 06/01/17 21:00 2.0 Intake and Output 06/03/17 06/03/17 06/04/17 15:00 23:00 07:00 Intake Total 110 ml 700 ml 250 ml Balance 110 ml 700 ml 250 ml Results Result Diagram: 06/04/17 0550 06/04/17 0550 Results 24 hrs Laboratory Tests Test 06/03/17 16:51 06/03/17 17:53 06/03/17 21:52 06/04/17 00:50 Bedside Glucose 168 184 Troponin I 0.038 0.037 Test 06/04/17 05:50 06/04/17 08:00 06/04/17 12:08 06/04/17 12:45 White Blood Count 7.0 Red Blood Count 2.86 L Hemoglobin 7.8 L Hematocrit 24.0 L Mean Corpuscular Volume 83.9 Mean Corpuscular Hemoglobin 27.3 L Mean Corpuscular Hemoglobin Concent 32.5 Red Cell Distribution Width 13.6 Platelet Count 356 Mean Platelet Volume 8.6 Neutrophils % 67.9 Lymphocytes % 12.6 L Monocytes % 15.8 H Eosinophils % 2.7 Basophils % 0.7 Nucleated Red Blood Cells % 0.0 Neutrophils # 4.8 Lymphocytes # 0.9 Monocytes # 1.1 H Eosinophils # 0.2 Basophils # 0.1 Nucleated Red Blood Cells # 0.0 Prothrombin Time 15.0 H Prothrombin Time Ratio 1.2 INR International Normalized Ratio 1.17 Activated Partial Thromboplast Time 37.1 H Sodium Level 136 Potassium Level 4.4 Chloride Level 95 L Carbon Dioxide Level 32 H Anion Gap 13 Blood Urea Nitrogen 18 Creatinine 8.28 H Glucose Level 120 Calcium Level 8.5 Total Bilirubin 0.1 L Direct Bilirubin 0.00 Indirect Bilirubin 0.1 Aspartate Amino Transf (AST/SGOT) 16 Alanine Aminotransferase (ALT/SGPT) 26 Alkaline Phosphatase 60 Troponin I 0.042 0.047 Total Protein 6.8 Albumin 3.1 L Globulin 3.70 H Albumin/Globulin Ratio 0.83 Bedside Glucose 116 159 Medications Medications Current Medications Alprazolam (Xanax) 0.25 mg Q8H PRN PO ANXIETY; Start 05/31/17 at 19:30 Aspirin (Halfprin) 81 mg DAILY PO Last administered on 06/04/17 08:09; Admin Dose 81 MG; Start 06/01/17 at 09:00 Atorvastatin Calcium (Lipitor) 20 mg QHS PO Last administered on 06/03/17 21: 54; Admin Dose 20 MG; Start 05/31/17 at 22:00 Bisacodyl (Dulcolax Supp) 10 mg Q48H [place] Last administered on 06/02/17 20:17; Admin Dose 10 MG; Start 05/31/17 at 19:30 Carvedilol (Coreg) 25 mg BID PO Last administered on 06/03/17 08:44; Admin Dose 25 MG; Start 05/31/17 at 22:00 Clonidine HCl (Catapres-Tts 2 Patch) 0.2 patch Sa@09 TRANSDERM Last administered on 06/02/17 09:55; Admin Dose 0.2 PATCH; Start 06/02/17 at 09:00 Gabapentin (Neurontin) 100 mg QHS PO Last administered on 06/03/17 21:00; Admin Dose 100 MG; Start 05/31/17 at 22:00 Losartan Potassium (Cozaar) 50 mg BID PO Last administered on 06/03/17 08:46; Admin Dose 50 MG; Start 05/31/17 at 22:00 Multivit/Ca Carb/ B Cmplx/FA/Prenat (Estephanie-Doc) 1 tab DAILY PO Last administered on 06/04/17 08:03; Admin Dose 1 TAB; Start 06/01/17 at 09:00 Nifedipine (Procardia Xl) 60 mg BID PO Last administered on 06/03/17 08:43; Admin Dose 60 MG; Start 05/31/17 at 22:00 Nitroglycerin (Nitroglycerin (Sl Tab) 0.4 Mg) 0.4 tab [id number] PRN SL CHEST PAIN; Start 05/31/17 at 19:30 Senna (Senokot) 2 tab QHS PO Last administered on 06/03/17 21:55; Admin Dose 2 TAB; Start 05/31/17 at 22:00 Sodium Biphosphate/ Sodium Phosphate (Fleet Enema Pediatric) 118 ml Q72H PRN [place] CONSTIPATION; Start 05/31/17 at 19:30 Ticagrelor (Brilinta) 90 mg Q12 PO Last administered on 06/04/17 08:07; Admin Dose 90 MG; Start 05/31/17 at 22:00 Triamcinolone Acetonide (Kenalog 0.025% Oint) 1 applic BID TOP Last administered on 06/04/17 08:03; Admin Dose 1 APPLIC; Start 05/31/17 at 22:00 Ondansetron HCl (Zofran Inj) 4 mg Q6H PRN IV NAUSEA AND/OR VOMITING Last administered on 06/02/17 19:07; Admin Dose 4 MG; Start 05/31/17 at 19:30 Acetaminophen (Tylenol Tab) 650 mg Q6H PRN PO PAIN LEVEL 1-3 OR FEVER; Start 05/31/17 at 19:30 Diagnostic Test (Pha) (Accu-Chek) 1 ea 02 XX ; Start 06/01/17 at 02:00 Miscellaneous Information 1 ea NOTE XX ; Start 05/31/17 at 23:00 Glucose (Glutose) 15 gm Q15M PRN PO DECREASED GLUCOSE; Start 05/31/17 at 23:00 Glucose (Glutose) 22.5 gm Q15M PRN PO DECREASED GLUCOSE; Start 05/31/17 at 23: 00 Dextrose (D50w Syringe) 25 ml Q15M PRN IV DECREASED GLUCOSE; Start 05/31/17 at 23:00 Dextrose (D50w Syringe) 50 ml Q15M PRN IV DECREASED GLUCOSE; Start 05/31/17 at 23:00 Glucagon (Glucagen) 1 mg Q15M PRN IM DECREASED GLUCOSE; Start 05/31/17 at 23:00 Glucose (Glutose) 15 gm Q15M PRN BUCCAL DECREASED GLUCOSE; Start 05/31/17 at 23 :00 Hydralazine HCl (Apresoline) 20 mg Q4H PRN IV ELEVATED SYSTOLIC BP; Start 06/01 at 01:30 Escitalopram Oxalate 10 mg 10 mg DAILY PO Last administered on 06/04/17 08:04 ; Admin Dose 10 MG; Start 06/01/17 at 13:30 Ferric Sodium Gluconate Complex/ Sodium Chloride (Ferrlecit/NS) 110 ml @ 110 mls/hr Q24H IVPB Last administered on 06/04/17 12:09; Admin Dose 110 MLS/HR; Start 06/03/17 at 12:00; Stop 06/07/17 at 12:59 Naproxen (Naprosyn) 250 mg TID PO Last administered on 06/04/17 12:09; Admin Dose 250 MG; Start 06/04/17 at 13:00 Colchicine (Colchicine) 0.3 mg BID PO Last administered on 06/04/17 12:10; Admin Dose 0.3 MG; Start 06/04/17 at 09:30 JUANA SMITH DO Jun 04, 2017 14:45
[2017-06-04] MEDS ORDERED: AMIODARONE 900 MG in DEXTROSE 5% 482 ML IV SCH (15:00)
--- NOTE | 2017-06-04 15:31 | RADRPT ---
Echocardiogram Report Patient Name: DEBBIE WILBURN Gender: Male Date: 1950 Study Date: 04-Jun-2017 Registry Rn: Lizette RUST Location: [facility] Ref. Physician: AVTAR VELEZ Quality: Adequate Procedures: Transthoracic echocardiogram with complete 2D, M-Mode, and doppler examination. Indications: SVT. 2D/M Mode Doppler Measurement Value Normal Ranges Measurement Value Normal Ranges AoR Diam MM 3.3 cm AV Peak [place] 1.3 m/sec ACS MM 2.0 cm AV Peak PG 7.1 mmHg LA/Ao MM 1.3 LVOT Peak [place] 1.0 m/sec LA Dimen MM 4.3 cm LVOT Peak PG 3.9 mmHg LVIDd 2D 4.9 3.5 - 5.6 cm MV E Peak [place] 1.0 m/sec LVIDs 2D 3.1 2.1 - 4.1 cm MV A Peak [place] 0.9 m/sec LVPWd 2D 1.2 0.6 - 1.1 cm MV E/A 1.1 IVSd 2D 1.2 0.6 - 1.1 cm MV Decel Time 215 msec EDV 2D 113.3 cm3 MV Decel [place] 5 ESV 2D 30.3 cm3 MV E/A 1.1 LA Dimen 2D 4.3 2.3 - 4.0 cm TR Peak [place] 2.8 m/sec TR Peak PG 35.0 mmHg RVSP 38.0 mmHg Findings Left Ventricle: Normal left ventricular systolic function. Normal left ventricular cavity size. Left ventricular wall thickness upper limits of normal. Ejection fraction is visually estimated at 65 %. Abnormal Diastolic Function. Right Ventricle: Normal right ventricular size. Normal right ventricular systolic function. Left Atrium: There is mild enlargement of left atrium. Right Atrium: The right atrium is normal in size. Mitral Valve: Mild mitral leaflet calcification. Mild mitral annular calcification. Mild mitral valve regurgitation. Aortic Valve: Normal appearance of the aortic valve. No significant aortic stenosis or insufficiency. Tricuspid Valve: Normal appearance of the tricuspid valve. Estimated peak PA systolic pressure 38 mmHg. There is mild tricuspid regurgitation. Pulmonic Valve: Pulmonic valve not well visualized. There is trace pulmonic regurgitation. Pericardium: Small pericardial effusion. Left pleural effusion seen. Aorta: Normal aortic root. IVC: Normal size and normal respiratory collapse consistent with normal right atrial pressure. Conclusions Normal left ventricular systolic function. Normal left ventricular cavity size. Left ventricular wall thickness upper limits of normal. Ejection fraction is visually estimated at 65 %. Abnormal Diastolic Function. Normal right ventricular size. Normal right ventricular systolic function. Mild mitral leaflet calcification. Mild mitral annular calcification. Mild mitral valve regurgitation. Normal appearance of the aortic valve. No significant aortic stenosis or insufficiency. Normal appearance of the tricuspid valve. Estimated peak PA systolic pressure 38 mmHg. There is mild tricuspid regurgitation. Small pericardial effusion. Left pleural effusion seen. Electronically Signed By: Avtar Velez 04-Jun-2017 15:30:56 -0700 Patient Name: DEBBIE WILBURN Study Date: 04-Jun-2017 [id number]
--- NOTE | 2017-06-04 15:41 | CONS ---
Date/Time of Note Date/Time of Note DATE: 06/04/17 TIME: 15:34 Assessment/Plan Assessment/Plan Additional Assessment/Plan 1. Atrial fibrillation with RVR 2. Small pericardial effusion 3. Hypertension. 4. Diabetes mellitus. 5. Dyslipidemia. 6. End-stage renal disease on hemodialysis for the last 6 years. 7. Congestive heart failure. 8. Coronary artery disease status post stent. He went into A.fib with RVR but hemodynamically stable Echo shows small pericardial effusion Started on Amiodarone bolus and infusion started in digoxin started on metoprolol Started on Colchicine Started on Naprosyn Stopped Coreg and Procardia Continue ASA and Brilinta Continue HD as scheduled Chest Ultrasound and thoracentesis if indicated Consultation Date/Type/Reason Admit Date/Time May 31, 2017 at 18:39 Exam/Review of Systems Vital Signs Vitals Vital Signs Date Time Temp Pulse Resp B/P Pulse Ox O2 Delivery O2 Flow Rate FiO2 06/04/17 15:19 97.6 110 20 115/73 97 06/03/17 19:38 Nasal Cannula 06/01/17 21:00 2.0 Intake and Output 06/03/17 06/03/17 06/04/17 15:00 23:00 07:00 Intake Total 110 ml 700 ml 250 ml Balance 110 ml 700 ml 250 ml Exam Constitutional: alert, oriented Head: atraumatic, normocephalic Respiratory: diminished breath sounds Cardiovascular: irregular rhythm Gastrointestinal: nl liver, spleen, non-tender, soft Extremities: normal pulses Results Result Diagram: 06/04/17 0550 06/04/17 0550 Results 24 hrs Laboratory Tests Test 06/03/17 16:51 06/03/17 17:53 06/03/17 21:52 06/04/17 00:50 Bedside Glucose 168 184 Troponin I 0.038 0.037 Test 06/04/17 05:50 06/04/17 08:00 06/04/17 12:08 06/04/17 12:45 White Blood Count 7.0 Red Blood Count 2.86 L Hemoglobin 7.8 L Hematocrit 24.0 L Mean Corpuscular Volume 83.9 Mean Corpuscular Hemoglobin 27.3 L Mean Corpuscular Hemoglobin Concent 32.5 Red Cell Distribution Width 13.6 Platelet Count 356 Mean Platelet Volume 8.6 Neutrophils % 67.9 Lymphocytes % 12.6 L Monocytes % 15.8 H Eosinophils % 2.7 Basophils % 0.7 Nucleated Red Blood Cells % 0.0 Neutrophils # 4.8 Lymphocytes # 0.9 Monocytes # 1.1 H Eosinophils # 0.2 Basophils # 0.1 Nucleated Red Blood Cells # 0.0 Prothrombin Time 15.0 H Prothrombin Time Ratio 1.2 INR International Normalized Ratio 1.17 Activated Partial Thromboplast Time 37.1 H Sodium Level 136 Potassium Level 4.4 Chloride Level 95 L Carbon Dioxide Level 32 H Anion Gap 13 Blood Urea Nitrogen 18 Creatinine 8.28 H Glucose Level 120 Calcium Level 8.5 Total Bilirubin 0.1 L Direct Bilirubin 0.00 Indirect Bilirubin 0.1 Aspartate Amino Transf (AST/SGOT) 16 Alanine Aminotransferase (ALT/SGPT) 26 Alkaline Phosphatase 60 Troponin I 0.042 0.047 Total Protein 6.8 Albumin 3.1 L Globulin 3.70 H Albumin/Globulin Ratio 0.83 Bedside Glucose 116 159 Medications Medications Current Medications Alprazolam (Xanax) 0.25 mg Q8H PRN PO ANXIETY; Start 05/31/17 at 19:30 Aspirin (Halfprin) 81 mg DAILY PO Last administered on 06/04/17 08:09; Admin Dose 81 MG; Start 06/01/17 at 09:00 Atorvastatin Calcium (Lipitor) 20 mg QHS PO Last administered on 06/03/17 21: 54; Admin Dose 20 MG; Start 05/31/17 at 22:00 Bisacodyl (Dulcolax Supp) 10 mg Q48H [place] Last administered on 06/02/17 20:17; Admin Dose 10 MG; Start 05/31/17 at 19:30 Carvedilol (Coreg) 25 mg BID PO Last administered on 06/03/17 08:44; Admin Dose 25 MG; Start 05/31/17 at 22:00 Clonidine HCl (Catapres-Tts 2 Patch) 0.2 patch Sa@09 TRANSDERM Last administered on 06/02/17 09:55; Admin Dose 0.2 PATCH; Start 06/02/17 at 09:00 Gabapentin (Neurontin) 100 mg QHS PO Last administered on 06/03/17 21:00; Admin Dose 100 MG; Start 05/31/17 at 22:00 Losartan Potassium (Cozaar) 50 mg BID PO Last administered on 06/03/17 08:46; Admin Dose 50 MG; Start 05/31/17 at 22:00 Multivit/Ca Carb/ B Cmplx/FA/Prenat (Estephanie-Doc) 1 tab DAILY PO Last administered on 06/04/17 08:03; Admin Dose 1 TAB; Start 06/01/17 at 09:00 Nifedipine (Procardia Xl) 60 mg BID PO Last administered on 06/03/17 08:43; Admin Dose 60 MG; Start 05/31/17 at 22:00 Nitroglycerin (Nitroglycerin (Sl Tab) 0.4 Mg) 0.4 tab [id number] PRN SL CHEST PAIN; Start 05/31/17 at 19:30 Senna (Senokot) 2 tab QHS PO Last administered on 06/03/17 21:55; Admin Dose 2 TAB; Start 05/31/17 at 22:00 Sodium Biphosphate/ Sodium Phosphate (Fleet Enema Pediatric) 118 ml Q72H PRN [place] CONSTIPATION; Start 05/31/17 at 19:30 Ticagrelor (Brilinta) 90 mg Q12 PO Last administered on 06/04/17 08:07; Admin Dose 90 MG; Start 05/31/17 at 22:00 Triamcinolone Acetonide (Kenalog 0.025% Oint) 1 applic BID TOP Last administered on 06/04/17 08:03; Admin Dose 1 APPLIC; Start 05/31/17 at 22:00 Ondansetron HCl (Zofran Inj) 4 mg Q6H PRN IV NAUSEA AND/OR VOMITING Last administered on 06/02/17 19:07; Admin Dose 4 MG; Start 05/31/17 at 19:30 Acetaminophen (Tylenol Tab) 650 mg Q6H PRN PO PAIN LEVEL 1-3 OR FEVER; Start 05/31/17 at 19:30 Diagnostic Test (Pha) (Accu-Chek) 1 ea 02 XX ; Start 06/01/17 at 02:00 Miscellaneous Information 1 ea NOTE XX ; Start 05/31/17 at 23:00 Glucose (Glutose) 15 gm Q15M PRN PO DECREASED GLUCOSE; Start 05/31/17 at 23:00 Glucose (Glutose) 22.5 gm Q15M PRN PO DECREASED GLUCOSE; Start 05/31/17 at 23: 00 Dextrose (D50w Syringe) 25 ml Q15M PRN IV DECREASED GLUCOSE; Start 05/31/17 at 23:00 Dextrose (D50w Syringe) 50 ml Q15M PRN IV DECREASED GLUCOSE; Start 05/31/17 at 23:00 Glucagon (Glucagen) 1 mg Q15M PRN IM DECREASED GLUCOSE; Start 05/31/17 at 23:00 Glucose (Glutose) 15 gm Q15M PRN BUCCAL DECREASED GLUCOSE; Start 05/31/17 at 23 :00 Hydralazine HCl (Apresoline) 20 mg Q4H PRN IV ELEVATED SYSTOLIC BP; Start 06/01 at 01:30 Escitalopram Oxalate 10 mg 10 mg DAILY PO Last administered on 06/04/17 08:04 ; Admin Dose 10 MG; Start 06/01/17 at 13:30 Ferric Sodium Gluconate Complex/ Sodium Chloride (Ferrlecit/NS) 110 ml @ 110 mls/hr Q24H IVPB Last administered on 06/04/17 12:09; Admin Dose 110 MLS/HR; Start 06/03/17 at 12:00; Stop 06/07/17 at 12:59 Naproxen (Naprosyn) 250 mg TID PO Last administered on 06/04/17 12:09; Admin Dose 250 MG; Start 06/04/17 at 13:00 Colchicine 0.3 mg 0.3 mg BID PO Last administered on 06/04/17 12:10; Admin Dose 0.3 MG; Start 06/04/17 at 09:30 Amiodarone HCl/ Dextrose (Cordarone Iv/ D5W) 500 ml @ 0 mls/hr Q0M IV ; Start 06/04/17 at 15:30; Stop 06/05/17 at 15:29 Digoxin (Digoxin) 250 mcg ONCE ONCE IV ; Start 06/04/17 at 16:00; Stop at 16:01; Status UNV Digoxin (Digoxin) 0.125 mg DAILY@13 PO ; Start 06/05/17 at 13:00; Status WILLIAMV SHEA VELEZ M.D. Jun 04, 2017 15:41
[2017-06-04] MEDS: AMIODARONE 900 MG in DEXTROSE 5% 482 ML IV SCH ×3 (15:53→22:46)
[2017-06-04] MEDS ORDERED: DIGOXIN 500 MCG INJ IV ONE (16:00)
[2017-06-04] MEDS: METOPROLOL 25 MG TAB PO SCH (17:02)
[2017-06-04] MEDS: GABAPENTIN 100 MG CAP PO SCH (21:20)
[2017-06-04] MEDS: ATORVASTATIN 20 MG TAB PO SCH (21:21)
[2017-06-04] MEDS: traMADol 50 MG TAB PO PRN (21:22)
[2017-06-04] MEDS: SENNA TAB PO SCH (21:23)
[2017-06-04] MEDS: BISACODYL 10 MG SUPP PR SCH (21:23)
[2017-06-04] MEDS ORDERED: ZOLPIDEM 5 MG TAB PO ONE (22:00)
[2017-06-05] VITALS (13 sets, daily range): BP systolic 145–184; BP diastolic 73–90; PULSE 66–70; RESP 17–22
[2017-06-05] MEDS: METOPROLOL 25 MG TAB PO SCH ×3 (00:01→12:49)
[2017-06-05] MEDS: ACCU-CHEK XX SCH (02:00)
[2017-06-05] MEDS: SEVELAMER 800 MG TAB PO SCH ×3 (07:55→17:49)
[2017-06-05] MEDS: INSULIN ASPART [NOVOLOG] 3 ML PEN SC SCH ×3 (07:55→21:00)
[2017-06-05 08:25] LABS: BASOPHIL # 0.1 10^3/ul (0.0-0.1); BASOPHILS % 0.7 % (0.0-2.0); EOSINOPHILS # 0.2 10^3/ul (0.0-0.5); EOSINOPHILS % 2.5 % (0.0-7.0); HEMATOCRIT 27.8 % (42.0-52.0); HEMOGLOBIN 8.7 g/dl (14.0-18.0); LYMPHOCYTES # 0.8 10^3/ul (0.8-2.9); LYMPHOCYTES % 12.4 % (15.0-51.0); MEAN CORPUSCULAR HEMOGLOBIN 26.9 pg (29.0-33.0); MEAN CORPUSCULAR HGB CONC 31.3 g/dl (32.0-37.0); MEAN CORPUSCULAR VOLUME 85.8 fl (82.0-101.0); MEAN PLATELET VOLUME 8.8 fl (7.4-10.4); MONOCYTE # 1.1 10^3/ul (0.3-0.9); MONOCYTES % 16.7 % (0.0-11.0); NEUTROPHIL # 4.5 10^3/ul (1.6-7.5); NEUTROPHILS % 67.3 % (39.0-77.0); PLATELET COUNT 416 10^3/UL (140-415); RED BLOOD COUNT 3.24 10^6/ul (4.70-6.10); RED CELL DISTRIBUTION WIDTH 13.7 % (11.5-14.5); WHITE BLOOD COUNT 6.7 10^3/ul (4.8-10.8)
[2017-06-05 08:52] LABS: CALCIUM 8.8 mg/dl (8.4-10.2); CREATININE 6.8 mg/dl (0.61-1.24)
[2017-06-05] MEDS: TRIAMCINOLONE ACET 0.025% 15 GM OINT TOP SCH ×2 (09:00→21:00)
--- NOTE | 2017-06-05 09:07 | CONS ---
Date/Time of Note Date/Time of Note DATE: 06/05/17 TIME: 09:05 Consult Date/Type/Reason Admit Date/Time May 31, 2017 at 18:39 Initial Consult Date Type of Consultation: Card Objective Vital Signs Date Time Temp Pulse Resp B/P Pulse Ox O2 Delivery O2 Flow Rate FiO2 06/05/17 08:00 68 06/05/17 07:37 97.9 17 180/87 93 06/03/17 19:38 Nasal Cannula 06/01/17 21:00 2.0 Intake and Output 06/04/17 06/04/17 06/05/17 15:00 23:00 07:00 Intake Total 1100 ml 1112 ml 350 ml Output Total 3100 ml Balance -2000 ml 1112 ml 350 ml Results/Medications Result Diagram: 06/05/1771606/05/17716 Results 24 hrs Laboratory Tests Test 06/04/17 12:08 06/04/17 12:45 06/04/17 16:58 06/04/17 18:50 Bedside Glucose 159 143 Troponin I 0.047 0.057 Test 06/04/17 21:27 06/05/17 00:58 06/05/17 07:17 06/05/17 08:27 Bedside Glucose 133 91 Troponin I 0.070 White Blood Count 6.7 Red Blood Count 3.24 L Hemoglobin 8.7 L Hematocrit 27.8 L Mean Corpuscular Volume 85.8 Mean Corpuscular Hemoglobin 26.9 L Mean Corpuscular Hemoglobin Concent 31.3 L Red Cell Distribution Width 13.7 Platelet Count 416 H Mean Platelet Volume 8.8 Neutrophils % 67.3 Lymphocytes % 12.4 L Monocytes % 16.7 H Eosinophils % 2.5 Basophils % 0.7 Nucleated Red Blood Cells % 0.0 Neutrophils # 4.5 Lymphocytes # 0.8 Monocytes # 1.1 H Eosinophils # 0.2 Basophils # 0.1 Nucleated Red Blood Cells # 0.0 Sodium Level 137 Potassium Level 5.0 Chloride Level 97 Carbon Dioxide Level 32 H Anion Gap 13 Blood Urea Nitrogen 14 Creatinine 6.80 H Glucose Level 92 Calcium Level 8.8 Medications Current Medications Alprazolam (Xanax) 0.25 mg Q8H PRN PO ANXIETY; Start 05/31/17 at 19:30 Aspirin (Halfprin) 81 mg DAILY PO Last administered on 06/04/17 08:09; Admin Dose 81 MG; Start 06/01/17 at 09:00 Atorvastatin Calcium (Lipitor) 20 mg QHS PO Last administered on 06/04/17 21: 21; Admin Dose 20 MG; Start 05/31/17 at 22:00 Bisacodyl (Dulcolax Supp) 10 mg Q48H ID Last administered on 06/04/17 21:23; Admin Dose 10 MG; Start 05/31/17 at 19:30 Clonidine HCl (Catapres-Tts 2 Patch) 0.2 patch Sa@09 TRANSDERM Last administered on 06/02/17 09:55; Admin Dose 0.2 PATCH; Start 06/02/17 at 09:00 Gabapentin (Neurontin) 100 mg QHS PO Last administered on 06/04/17 21:20; Admin Dose 100 MG; Start 05/31/17 at 22:00 Losartan Potassium (Cozaar) 50 mg BID PO Last administered on 06/04/17 21:22; Admin Dose 50 MG; Start 05/31/17 at 22:00 Multivit/Ca Carb/ B Cmplx/FA/Prenat (Estephanie-Doc) 1 tab DAILY PO Last administered on 06/04/17 08:03; Admin Dose 1 TAB; Start 06/01/17 at 09:00 Nitroglycerin (Nitroglycerin (Sl Tab) 0.4 Mg) 0.4 tab [id number] PRN SL CHEST PAIN; Start 05/31/17 at 19:30 Senna (Senokot) 2 tab QHS PO Last administered on 06/04/17 21:23; Admin Dose 2 TAB; Start 05/31/17 at 22:00 Sodium Biphosphate/ Sodium Phosphate (Fleet Enema Pediatric) 118 ml Q72H PRN ID CONSTIPATION; Start 05/31/17 at 19:30 Ticagrelor (Brilinta) 90 mg Q12 PO Last administered on 06/04/17 21:25; Admin Dose 90 MG; Start 05/31/17 at 22:00 Triamcinolone Acetonide (Kenalog 0.025% Oint) 1 applic BID TOP Last administered on 06/04/17 21:25; Admin Dose 1 APPLIC; Start 05/31/17 at 22:00 Ondansetron HCl (Zofran Inj) 4 mg Q6H PRN IV NAUSEA AND/OR VOMITING Last administered on 06/02/17 19:07; Admin Dose 4 MG; Start 05/31/17 at 19:30 Acetaminophen (Tylenol Tab) 650 mg Q6H PRN PO PAIN LEVEL 1-3 OR FEVER; Start 05/31/17 at 19:30 Diagnostic Test (Pha) (Accu-Chek) 1 ea 02 XX ; Start 06/01/17 at 02:00 Miscellaneous Information 1 ea NOTE XX ; Start 05/31/17 at 23:00 Glucose (Glutose) 15 gm Q15M PRN PO DECREASED GLUCOSE; Start 05/31/17 at 23:00 Glucose (Glutose) 22.5 gm Q15M PRN PO DECREASED GLUCOSE; Start 05/31/17 at 23: 00 Dextrose (D50w Syringe) 25 ml Q15M PRN IV DECREASED GLUCOSE; Start 05/31/17 at 23:00 Dextrose (D50w Syringe) 50 ml Q15M PRN IV DECREASED GLUCOSE; Start 05/31/17 at 23:00 Glucagon (Glucagen) 1 mg Q15M PRN IM DECREASED GLUCOSE; Start 05/31/17 at 23:00 Glucose (Glutose) 15 gm Q15M PRN BUCCAL DECREASED GLUCOSE; Start 05/31/17 at 23 :00 Hydralazine HCl (Apresoline) 20 mg Q4H PRN IV ELEVATED SYSTOLIC BP; Start 06/01 at 01:30 Escitalopram Oxalate 10 mg 10 mg DAILY PO Last administered on 06/04/17 08:04 ; Admin Dose 10 MG; Start 06/01/17 at 13:30 Ferric Sodium Gluconate Complex/ Sodium Chloride (Ferrlecit/NS) 110 ml @ 110 mls/hr Q24H IVPB Last administered on 06/04/17 12:09; Admin Dose 110 MLS/HR; Start 06/03/17 at 12:00; Stop 06/07/17 at 12:59 Naproxen (Naprosyn) 250 mg TID PO Last administered on 06/04/17 21:21; Admin Dose 250 MG; Start 06/04/17 at 13:00 Colchicine 0.3 mg 0.3 mg BID PO Last administered on 06/04/17 21:21; Admin Dose 0.3 MG; Start 06/04/17 at 09:30 Amiodarone HCl/ Dextrose (Cordarone Iv/ D5W) 500 ml @ 0 mls/hr Q0M IV Last administered on 06/04/17 22:46; Admin Dose 16.7 MLS/HR; Start 06/04/17 at 15:30 ; Stop 06/05/17 at 15:29 Digoxin (Digoxin) 0.125 mg DAILY@13 PO ; Start 06/05/17 at 13:00 Metoprolol Tartrate (Lopressor) 25 mg Q6 PO Last administered on 06/05/17 06: 55; Admin Dose 25 MG; Start 06/04/17 at 18:00 Tramadol HCl (Ultram) 50 mg Q6H PRN PO PAIN Last administered on 06/04/17 21: 22; Admin Dose 50 MG; Start 06/04/17 at 21:00 Assessment/Plan Problems: (1) Shortness of breath (2) Anemia (3) CHF (congestive heart failure) Additional Assessment/Plan Stable converted back D/C amio drip PO AMIO 200mg BID contineu current management CLEOPATRA SULLIVAN MD Jun 05, 2017 09:07
[2017-06-05] MEDS ORDERED: LIDOCAINE 1% (MPF) 5 ML VIAL ONE (09:15)
--- NOTE | 2017-06-05 10:25 | RADRPT ---
PROCEDURE: XR Chest 1 view. CLINICAL INDICATION: Status post right thoracentesis TECHNIQUE: AP views of the chest were obtained. COMPARISON: May 31, 2017 FINDINGS: The heart is large. Calcified atherosclerosis is noted in the aorta. There has been interval decrea se in right pleural effusion with improved aeration of the right lower lung. No pneumothorax as visu alized. Blunting of the left costophrenic angle is noted. Atelectasis is seen at the left lung base. Osseous structures are intact. IMPRESSION: Cardiomegaly with calcified atherosclerosis in the aorta. Interval decrease in right pleural effusion with improved aeration of the right lower lung. No visua lized pneumothorax. Blunting left costophrenic angle that may reflect small left pleural effusion. Atelectasis at the left lung base. RPTAT: AA .Edgar Porter MD, Date Time Electronically viewed and signed by .Edgar Porter MD, MD on 06/05/2017 10:25 .P/
--- NOTE | 2017-06-05 10:25 | PN ---
Date/Time of Note Date/Time of Note DATE: 06/05/17 TIME: 10:17 Assessment/Plan VTE Prophylaxis VTE Prophylaxis Intervention: SCD's Lines/Catheters IV Catheter Type (from [facility]): [facility] Urinary Cath still in place: No Assessment/Plan Chief Complaint/Hosp Course 66-year-old correction resident with dialysis, diabetes, hypertension, and coronary disease who presents with shortness of breath 1. Hypoxic respiratory failure secondary to pleura effusion/volume overload secondary to ESRD. Resolved. -Hemodialysis for fluid removal. 2. End-stage renal disease, HD T.T.TH -Dialysis per nephrology colleagues. 3. Diastolic congestive heart failure. Echo with preserved ejection fraction. -Continue medical optimization. 4.Pleural effusion,bilateral on Xray 05/31/17. Right greater than left. -At this post ultrasound-guided thoracentesis on 06/05/2017 with 930 mL fluid removed. Follow-up with flow studies. -Follow-up repeat chest x-ray post thoracentesis. 5. Coronary artery disease. Status post PCI in the past. -Continue medical optimization 6. Diabetes, Type 2. Well controlled. A1C 6.6 -Continue Accu-Cheks/ISS. 7. Anemia of chronic kidney disease + iron deficiency. -Continue iron replacement. Epogen per nephrology colleagues. 8. Essential hypertension. -Continue home medications. 9. Paroxysmal atrial fibrillation. Now back to normal sinus rhythm. -Status post IV amiodarone followed by oral amiodarone 200 mg twice daily with digoxin oral. 10. Depression -On Lexapro DVT and GI prophylaxis: SCDs, acid kimberly Plan: Overall, patient with clinical improvement in symptoms. Currently he is being transitioned to oral amiodarone. Once stable from cardiology and nephrology standpoint, discharge planning back to correction with outpatient cardiology and nephrology follow-up. Patient was seen in collaboration with Dr. Hutchinson. Problems: Subjective 24 Hr Interval Summary Free Text/Dictation Patient went into rapid atrial fibrillation overnight requiring IV amiodarone infusion. Patient is also started on digoxin. She also had ultrasound-guided thoracentesis, left side with 930 mL fluid removal this morning. Patient with no further respiratory distress at this time. He is saturating normal in room air. He is also in normal sinus rhythm. Exam/Review of Systems Vital Signs Vitals Vital Signs Date Time Temp Pulse Resp B/P Pulse Ox O2 Delivery O2 Flow Rate FiO2 06/05/17 08:00 68 06/05/17 07:37 97.9 17 180/87 93 06/03/17 19:38 Nasal Cannula 06/01/17 21:00 2.0 Intake and Output 06/04/17 06/04/17 06/05/17 15:00 23:00 07:00 Intake Total 1100 ml 1112 ml 350 ml Output Total 3100 ml Balance -2000 ml 1112 ml 350 ml Exam General: Well developed,adequately built, not in any acute distress . HEENT: Normocephalic, Atraumatic, No laceration or hematoma; Eyes: PEERL, Conjunctiva clear, Anicteric sclera Neck: Supple without any lymphadenopathy, nontender, no JVD, no carotid bruits, trachea midline, no thyromegaly Cardiac: S1, S2 auscultated, regular rhythm and rate, no mumurs or gallop Pulmonary: Diminished breath sound bibasilar. Normal respiratory effort. Chest clear to auscultation bilaterally, no adventitious breath sounds GI: Abdomen normal to inspection. Soft, non tender, non- distended, no masses, no rebound tenderness or guarding. Bowel sounds active on all four quadrants Genitourinary: Deferred Extremities: No cyanosis, clubbing, or edema. Pulses [2+] bilaterally. Full ROM on all four extremities. No focal weakness appreciated. Neurologic: Alert to person, place, time, and situation. Affect appropriate, intact sensation. Skin: Clean,dry, and intact. No ecchymosis, no rashes, or lesions Acces: Left upper arm AV shunt. Results Result Diagram: 06/05/1771606/05/17 0717 Results 24 hrs Laboratory Tests Test 06/04/17 12:08 06/04/17 12:45 06/04/17 16:58 06/04/17 18:50 Bedside Glucose 159 143 Troponin I 0.047 0.057 Test 06/04/17 21:27 06/05/17 00:58 06/05/17 07:17 06/05/17 08:27 Bedside Glucose 133 91 Troponin I 0.070 White Blood Count 6.7 Red Blood Count 3.24 L Hemoglobin 8.7 L Hematocrit 27.8 L Mean Corpuscular Volume 85.8 Mean Corpuscular Hemoglobin 26.9 L Mean Corpuscular Hemoglobin Concent 31.3 L Red Cell Distribution Width 13.7 Platelet Count 416 H Mean Platelet Volume 8.8 Neutrophils % 67.3 Lymphocytes % 12.4 L Monocytes % 16.7 H Eosinophils % 2.5 Basophils % 0.7 Nucleated Red Blood Cells % 0.0 Neutrophils # 4.5 Lymphocytes # 0.8 Monocytes # 1.1 H Eosinophils # 0.2 Basophils # 0.1 Nucleated Red Blood Cells # 0.0 Sodium Level 137 Potassium Level 5.0 Chloride Level 97 Carbon Dioxide Level 32 H Anion Gap 13 Blood Urea Nitrogen 14 Creatinine 6.80 H Glucose Level 92 Calcium Level 8.8 Medications Medications Current Medications Alprazolam (Xanax) 0.25 mg Q8H PRN PO ANXIETY; Start 05/31/17 at 19:30 Aspirin (Halfprin) 81 mg DAILY PO Last administered on 06/04/17 08:09; Admin Dose 81 MG; Start 06/01/17 at 09:00 Atorvastatin Calcium (Lipitor) 20 mg QHS PO Last administered on 06/04/17 21: 21; Admin Dose 20 MG; Start 05/31/17 at 22:00 Bisacodyl (Dulcolax Supp) 10 mg Q48H IN Last administered on 06/04/17 21:23; Admin Dose 10 MG; Start 05/31/17 at 19:30 Clonidine HCl (Catapres-Tts 2 Patch) 0.2 patch Sa@09 TRANSDERM Last administered on 06/02/17 09:55; Admin Dose 0.2 PATCH; Start 06/02/17 at 09:00 Gabapentin (Neurontin) 100 mg QHS PO Last administered on 06/04/17 21:20; Admin Dose 100 MG; Start 05/31/17 at 22:00 Losartan Potassium (Cozaar) 50 mg BID PO Last administered on 06/04/17 21:22; Admin Dose 50 MG; Start 05/31/17 at 22:00 Multivit/Ca Carb/ B Cmplx/FA/Prenat (Estephanie-Doc) 1 tab DAILY PO Last administered on 06/04/17 08:03; Admin Dose 1 TAB; Start 06/01/17 at 09:00 Nitroglycerin (Nitroglycerin (Sl Tab) 0.4 Mg) 0.4 tab [id number] PRN SL CHEST PAIN; Start 05/31/17 at 19:30 Senna (Senokot) 2 tab QHS PO Last administered on 06/04/17 21:23; Admin Dose 2 TAB; Start 05/31/17 at 22:00 Sodium Biphosphate/ Sodium Phosphate (Fleet Enema Pediatric) 118 ml Q72H PRN IN CONSTIPATION; Start 05/31/17 at 19:30 Ticagrelor (Brilinta) 90 mg Q12 PO Last administered on 06/04/17 21:25; Admin Dose 90 MG; Start 05/31/17 at 22:00 Triamcinolone Acetonide (Kenalog 0.025% Oint) 1 applic BID TOP Last administered on 06/04/17 21:25; Admin Dose 1 APPLIC; Start 05/31/17 at 22:00 Ondansetron HCl (Zofran Inj) 4 mg Q6H PRN IV NAUSEA AND/OR VOMITING Last administered on 06/02/17 19:07; Admin Dose 4 MG; Start 05/31/17 at 19:30 Acetaminophen (Tylenol Tab) 650 mg Q6H PRN PO PAIN LEVEL 1-3 OR FEVER; Start 05/31/17 at 19:30 Diagnostic Test (Pha) (Accu-Chek) 1 ea 02 XX ; Start 06/01/17 at 02:00 Miscellaneous Information 1 ea NOTE XX ; Start 05/31/17 at 23:00 Glucose (Glutose) 15 gm Q15M PRN PO DECREASED GLUCOSE; Start 05/31/17 at 23:00 Glucose (Glutose) 22.5 gm Q15M PRN PO DECREASED GLUCOSE; Start 05/31/17 at 23: 00 Dextrose (D50w Syringe) 25 ml Q15M PRN IV DECREASED GLUCOSE; Start 05/31/17 at 23:00 Dextrose (D50w Syringe) 50 ml Q15M PRN IV DECREASED GLUCOSE; Start 05/31/17 at 23:00 Glucagon (Glucagen) 1 mg Q15M PRN IM DECREASED GLUCOSE; Start 05/31/17 at 23:00 Glucose (Glutose) 15 gm Q15M PRN BUCCAL DECREASED GLUCOSE; Start 05/31/17 at 23 :00 Hydralazine HCl (Apresoline) 20 mg Q4H PRN IV ELEVATED SYSTOLIC BP; Start 06/01 at 01:30 Escitalopram Oxalate 10 mg 10 mg DAILY PO Last administered on 06/04/17 08:04 ; Admin Dose 10 MG; Start 06/01/17 at 13:30 Ferric Sodium Gluconate Complex/ Sodium Chloride (Ferrlecit/NS) 110 ml @ 110 mls/hr Q24H IVPB Last administered on 06/04/17 12:09; Admin Dose 110 MLS/HR; Start 06/03/17 at 12:00; Stop 06/07/17 at 12:59 Naproxen (Naprosyn) 250 mg TID PO Last administered on 06/04/17 21:21; Admin Dose 250 MG; Start 06/04/17 at 13:00 Colchicine 0.3 mg 0.3 mg BID PO Last administered on 06/04/17 21:21; Admin Dose 0.3 MG; Start 06/04/17 at 09:30 Amiodarone HCl/ Dextrose (Cordarone Iv/ D5W) 500 ml @ 0 mls/hr Q0M IV Last administered on 06/04/17 22:46; Admin Dose 16.7 MLS/HR; Start 06/04/17 at 15:30 ; Stop 06/05/17 at 15:29 Digoxin (Digoxin) 0.125 mg DAILY@13 PO ; Start 06/05/17 at 13:00 Metoprolol Tartrate (Lopressor) 25 mg Q6 PO Last administered on 06/05/17 06: 55; Admin Dose 25 MG; Start 06/04/17 at 18:00 Tramadol HCl (Ultram) 50 mg Q6H PRN PO PAIN Last administered on 06/04/17 21: 22; Admin Dose 50 MG; Start 06/04/17 at 21:00 Amiodarone HCl (Cordarone) 200 mg BID PO ; Start 06/05/17 at 09:30 MELISSA GUZMAN NP Jun 05, 2017 10:25
[2017-06-05] MEDS: COLCHICINE 0.6 MG TAB PO SCH ×2 (10:30→21:35)
[2017-06-05] MEDS: MULTIVIT/CA CARB/B CMPLX/FA TAB PO SCH (10:30)
[2017-06-05] MEDS: LOSARTAN 50 MG TAB PO SCH ×2 (10:31→21:38)
[2017-06-05] MEDS: NAPROXEN 250 MG TAB PO SCH ×3 (10:31→21:36)
[2017-06-05] MEDS: ASPIRIN (EC) 81 MG TAB PO SCH (10:31)
[2017-06-05] MEDS: ESCITALOPRAM 10 MG TAB PO SCH (10:31)
[2017-06-05] MEDS: AMIODARONE 200 MG TAB PO SCH ×2 (10:39→21:37)
[2017-06-05] MEDS: TICAGRELOR 90 MG TABLET PO SCH ×2 (10:39→21:39)
[2017-06-05 11:09] LABS: Allen Test ACCEPTAB; Arterial Base Excess 6.4 mmol/L (-3.0-3); Arterial COHb 0.1 % (0.0-3.0); Arterial Fraction of Oxyhgb 90.7 % (93.0-99.0); Arterial HCO3 30.9 mmol/L (22.0-26.0); Arterial MetHb 0.1 % (0.0-1.5); Arterial Total Hemglobin 10.2 g/dl (12.0-18.0); MODE ROOM AIR
--- NOTE | 2017-06-05 11:33 | RADRPT ---
PROCEDURE: US guided right thoracentesis. CLINICAL INDICATION: Shortness of breath. Right pleural effusion. TECHNIQUE: Prior to the procedure, informed consent was obtained. The risks, benefits, and alternatives were e xplained to the patient or the patient's family, including but not limited to bleeding, infection, p ain, visceral or vascular damage, shock, pneumothorax, chest tube placement, air embolism, and . The patient or the patient's family understood the risks and the alternatives and wished to proce ed with the study. Informed written consent was obtained. A procedural pause was performed. The patient's name, date of , and procedure to be performed were verified. Ultrasound of the right hemithorax was performed in the axial and sagittal planes. A right pleural e ffusion is noted. Utilizing ultrasound guidance, optimal location for entry to the pleural cavity wa s ascertained. The overlying skin was prepped and draped in the usual sterile fashion. Approximate ly 10 ml of 1% Xylocaine was injected locally for pain control. Using ultrasound guidance, a 5-Fren Yueh catheter was introduced into the right pleural space without difficulty. Fluid was aspirated . COMPARISON: Chest x-ray dated 05/31/2017. FINDINGS: Initial ultrasound demonstrates fluid in the right pleural space. Approximately 0.920 liters of ser ous fluid was aspirated and sent to the laboratory. IMPRESSION: 1. Satisfactory ultrasound-guided right thoracentesis. RPTAT: QQ .Mario William MD, Date Time Electronically viewed and signed by .Mario William MD, on 06/05/2017 11:33 .R/
[2017-06-05] MEDS: DIGOXIN 0.125 MG TAB PO SCH (12:48)
[2017-06-05] MEDS: SOD FERRIC GLUC COMPLX 125 MG in SOD CHLORIDE 0.9% 100 ML IVPB SCH (12:51)
--- NOTE | 2017-06-05 13:21 | CONS ---
Date/Time of Note Date/Time of Note DATE: 06/05/17 TIME: 13:20 Consult Date/Type/Reason Admit Date/Time May 31, 2017 at 18:39 Initial Consult Date Type of Consultation: nephrology Subjective 66-year-old male with past medical history of ESRD who presents to [facility] Emergency Room with chest pain, shortness of breath. no nausea, melena, fever or new rash s/p hd yesterday d/w Dr crowe and HD nurse REVIEW OF SYSTEMS: A 14-point review of systems reviewed. PHYSICAL EXAMINATION: HEENT: Normocephalic and atraumatic. HEART: Regular rate. LUNGS: Show diminished breath sounds throughout the base. no wheezing ABDOMEN: Soft, nontender to palpation EXTREMITIES: Negative for cyanosis or clubbing, no edema. SKIN: No rashes. Objective Vital Signs Date Time Temp Pulse Resp B/P Pulse Ox O2 Delivery O2 Flow Rate FiO2 06/05/17 12:20 98.2 69 22 184/90 94 06/03/17 19:38 Nasal Cannula 06/01/17 21:00 2.0 Intake and Output 06/04/17 06/04/17 06/05/17 15:00 23:00 07:00 Intake Total 1100 ml 1112 ml 350 ml Output Total 3100 ml Balance -2000 ml 1112 ml 350 ml Results/Medications Result Diagram: 06/05/1771606/05/17716 Results 24 hrs Laboratory Tests Test 06/04/17 16:58 06/04/17 18:50 06/04/17 21:27 06/05/17 00:58 Bedside Glucose 143 133 Troponin I 0.057 0.070 Test 06/05/17 07:17 06/05/17 08:27 06/05/17 09:51 06/05/17 12:45 White Blood Count 6.7 Red Blood Count 3.24 L Hemoglobin 8.7 L Hematocrit 27.8 L Mean Corpuscular Volume 85.8 Mean Corpuscular Hemoglobin 26.9 L Mean Corpuscular Hemoglobin Concent 31.3 L Red Cell Distribution Width 13.7 Platelet Count 416 H Mean Platelet Volume 8.8 Neutrophils % 67.3 Lymphocytes % 12.4 L Monocytes % 16.7 H Eosinophils % 2.5 Basophils % 0.7 Nucleated Red Blood Cells % 0.0 Neutrophils # 4.5 Lymphocytes # 0.8 Monocytes # 1.1 H Eosinophils # 0.2 Basophils # 0.1 Nucleated Red Blood Cells # 0.0 Sodium Level 137 Potassium Level 5.0 Chloride Level 97 Carbon Dioxide Level 32 H Anion Gap 13 Blood Urea Nitrogen 14 Creatinine 6.80 H Glucose Level 92 Calcium Level 8.8 Bedside Glucose 91 100 Blood Gas Specimen Source Blood arterial Arterial Blood Date Drawn 06/05/2017 11:01:04 AM Arterial Blood pH (Temp corrected) 7.465 H Arterial Blood pCO2 (Temp correct) 43.9 Arterial Blood pO2 (Temp corrected) 58.2 L Arterial Blood HCO3 30.9 H Arterial Blood Base Excess 6.4 H Arterial Blood Oxygen Saturation 90.9 L Domingo Test ACCEPTAB Arterial Blood Gas Puncture Site Right Radial Arterial Blood Carboxyhemoglobin 0.1 Arterial Blood Methemoglobin 0.1 Blood Gas A-a O2 Differential 39.0 H Oxyhemoglobin Percent 90.7 L Total Hemoglobin 10.2 L Blood Gas Temperature 37.0 Blood Gas Modality ROOM AIR FiO2 21.0 Blood Gas Notified Whom JLD Blood Gas Notified Time 06/05/2017 11:09:33 AM Medications Current Medications Alprazolam (Xanax) 0.25 mg Q8H PRN PO ANXIETY; Start 05/31/17 at 19:30 Aspirin (Halfprin) 81 mg DAILY PO Last administered on 06/05/17 10:31; Admin Dose 81 MG; Start 06/01/17 at 09:00 Atorvastatin Calcium (Lipitor) 20 mg QHS PO Last administered on 06/04/17 21: 21; Admin Dose 20 MG; Start 05/31/17 at 22:00 Bisacodyl (Dulcolax Supp) [address] Last administered on 06/04/17 21:23; Admin Dose 10 MG; Start 05/31/17 at 19:30 Clonidine HCl (Catapres-Tts 2 Patch) 0.2 patch Sa@09 TRANSDERM Last administered on 06/02/17 09:55; Admin Dose 0.2 PATCH; Start 06/02/17 at 09:00 Gabapentin (Neurontin) 100 mg QHS PO Last administered on 06/04/17 21:20; Admin Dose 100 MG; Start 05/31/17 at 22:00 Losartan Potassium (Cozaar) 50 mg BID PO Last administered on 06/05/17 10:31 ; Admin Dose 50 MG; Start 05/31/17 at 22:00 Multivit/Ca Carb/ B Cmplx/FA/Prenat (Estephanie-Doc) 1 tab DAILY PO Last administered on 06/05/17 10:30; Admin Dose 1 TAB; Start 06/01/17 at 09:00 Nitroglycerin (Nitroglycerin (Sl Tab) 0.4 Mg) 0.4 tab [id number] PRN SL CHEST PAIN; Start 05/31/17 at 19:30 Senna (Senokot) 2 tab QHS PO Last administered on 06/04/17 21:23; Admin Dose 2 TAB; Start 05/31/17 at 22:00 Sodium Biphosphate/ Sodium Phosphate (Fleet Enema Pediatric) [address] CONSTIPATION; Start 05/31/17 at 19:30 Ticagrelor (Brilinta) 90 mg Q12 PO Last administered on 06/05/17 10:39; Admin Dose 90 MG; Start 05/31/17 at 22:00 Triamcinolone Acetonide (Kenalog 0.025% Oint) 1 applic BID TOP Last administered on 06/04/17 21:25; Admin Dose 1 APPLIC; Start 05/31/17 at 22:00 Ondansetron HCl (Zofran Inj) 4 mg Q6H PRN IV NAUSEA AND/OR VOMITING Last administered on 06/02/17 19:07; Admin Dose 4 MG; Start 05/31/17 at 19:30 Acetaminophen (Tylenol Tab) 650 mg Q6H PRN PO PAIN LEVEL 1-3 OR FEVER; Start 05/31/17 at 19:30 Diagnostic Test (Pha) (Accu-Chek) 1 ea 02 XX ; Start 06/01/17 at 02:00 Miscellaneous Information 1 ea NOTE XX ; Start 05/31/17 at 23:00 Glucose (Glutose) 15 gm Q15M PRN PO DECREASED GLUCOSE; Start 05/31/17 at 23:00 Glucose (Glutose) 22.5 gm Q15M PRN PO DECREASED GLUCOSE; Start 05/31/17 at 23: 00 Dextrose (D50w Syringe) 25 ml Q15M PRN IV DECREASED GLUCOSE; Start 05/31/17 at 23:00 Dextrose (D50w Syringe) 50 ml Q15M PRN IV DECREASED GLUCOSE; Start 05/31/17 at 23:00 Glucagon (Glucagen) 1 mg Q15M PRN IM DECREASED GLUCOSE; Start 05/31/17 at 23:00 Glucose (Glutose) 15 gm Q15M PRN BUCCAL DECREASED GLUCOSE; Start 05/31/17 at 23 :00 Hydralazine HCl (Apresoline) 20 mg Q4H PRN IV ELEVATED SYSTOLIC BP; Start 06/01 at 01:30 Escitalopram Oxalate 10 mg 10 mg DAILY PO Last administered on 06/05/17 10:31 ; Admin Dose 10 MG; Start 06/01/17 at 13:30 Ferric Sodium Gluconate Complex/ Sodium Chloride (Ferrlecit/NS) 110 ml @ 110 mls/hr Q24H IVPB Last administered on 06/05/17 12:51; Admin Dose 110 MLS/HR; Start 06/03/17 at 12:00; Stop 06/07/17 at 12:59 Naproxen (Naprosyn) 250 mg TID PO Last administered on 06/05/17 12:53; Admin Dose 250 MG; Start 06/04/17 at 13:00 Colchicine 0.3 mg 0.3 mg BID PO Last administered on 06/05/17 10:30; Admin Dose 0.3 MG; Start 06/04/17 at 09:30 Amiodarone HCl/ Dextrose (Cordarone Iv/ D5W) 500 ml @ 0 mls/hr Q0M IV Last administered on 06/04/17 22:46; Admin Dose 16.7 MLS/HR; Start 06/04/17 at 15:30 ; Stop 06/05/17 at 15:29 Digoxin (Digoxin) 0.125 mg DAILY@13 PO Last administered on 06/05/17 12:48; Admin Dose 0.125 MG; Start 06/05/17 at 13:00 Metoprolol Tartrate (Lopressor) 25 mg Q6 PO Last administered on 06/05/17 12: 49; Admin Dose 25 MG; Start 06/04/17 at 18:00 Tramadol HCl (Ultram) 50 mg Q6H PRN PO PAIN Last administered on 06/04/17 21: 22; Admin Dose 50 MG; Start 06/04/17 at 21:00 Amiodarone HCl (Cordarone) 200 mg BID PO Last administered on 06/05/17t 10:39 ; Admin Dose 200 MG; Start 06/05/17 at 09:30 Assessment/Plan Chief Complaint/Hosp Course 1. End-stage renal disease. The patient underwent hemodialysis yesterday, He will be evaluated daily for his dialytic needs. continue with hd today. We will monitor vitals closely with supportive care. 2. Volume overload. The patient with possible chf exacerbation. Chest x-ray shows bilateral pleural effusion. Ultrafiltration with hemodialysis and monitor closely. 3. Diabetes. 4. anemia: will start IV iron. continue epogen with hd 5. HTN: BP at target after UF/HD. Meds were reviewed Problems: ANEESH WEISS MD Jun 05, 2017 13:21
[2017-06-05 13:58] LABS: FLUID GLUCOSE 95 mg/dl; FLUID TYPE THORACENTESIS FLUID
[2017-06-05 14:06] LABS: FLD MN% 92.7 %; FLD PMN% 7.3 %; FLD RBC 1 /uL; FLD WBC 381 /cmm
[2017-06-05 14:20] LABS: FLUID AMYLASE < 30 U/L; FLUID TYPE THORACENTESIS FLUID
[2017-06-05 14:21] LABS: FLUID LD 309 U/L; FLUID TOTAL PROTEIN 3.1 g/dl; FLUID TYPE THORACENTESIS FLUID
[2017-06-05 14:59] LABS: FLD CLARITY CLEAR; FLD COLOR YELLOW; FLD TYPE THORACENTHESIS
[2017-06-05] MEDS: hydrALAzine 20 MG INJ IV PRN (15:58)
[2017-06-05] MEDS ORDERED: LABETALOL HCL 20MG INJ IV ONE (16:00)
[2017-06-05] MEDS: traMADol 50 MG TAB PO PRN (16:04)
[2017-06-05] MEDS: SENNA TAB PO SCH (21:00)
[2017-06-05] MEDS: ATORVASTATIN 20 MG TAB PO SCH (21:36)
[2017-06-05] MEDS: GABAPENTIN 100 MG CAP PO SCH (21:36)
[2017-06-06] VITALS (19 sets, daily range): BP systolic 129–194; BP diastolic 8–95; PULSE 63–69; RESP 17–20
[2017-06-06] MEDS: METOPROLOL 25 MG TAB PO SCH ×2 (00:03→06:00)
[2017-06-06] MEDS: traMADol 50 MG TAB PO PRN (00:08)
[2017-06-06] MEDS: ACCU-CHEK XX SCH (02:00)
[2017-06-06 07:26] LABS: BASOPHIL # 0.1 10^3/ul (0.0-0.1); BASOPHILS % 0.7 % (0.0-2.0); EOSINOPHILS # 0.2 10^3/ul (0.0-0.5); EOSINOPHILS % 2.7 % (0.0-7.0); HEMATOCRIT 26.6 % (42.0-52.0); HEMOGLOBIN 8.4 g/dl (14.0-18.0); LYMPHOCYTES # 0.8 10^3/ul (0.8-2.9); LYMPHOCYTES % 10.2 % (15.0-51.0); MEAN CORPUSCULAR HEMOGLOBIN 26.2 pg (29.0-33.0); MEAN CORPUSCULAR HGB CONC 31.6 g/dl (32.0-37.0); MEAN CORPUSCULAR VOLUME 82.9 fl (82.0-101.0); MEAN PLATELET VOLUME 8.9 fl (7.4-10.4); MONOCYTES % 12.1 % (0.0-11.0); NEUTROPHILS % 74.1 % (39.0-77.0); PLATELET COUNT 401 10^3/UL (140-415); RED BLOOD COUNT 3.21 10^6/ul (4.70-6.10); RED CELL DISTRIBUTION WIDTH 13.6 % (11.5-14.5); WHITE BLOOD COUNT 8.2 10^3/ul (4.8-10.8)
[2017-06-06 07:47] LABS: CALCIUM 8.5 mg/dl (8.4-10.2); CREATININE 7.88 mg/dl (0.61-1.24)
[2017-06-06] MEDS: INSULIN ASPART [NOVOLOG] 3 ML PEN SC SCH ×4 (07:55→20:44)
[2017-06-06] MEDS: TRIAMCINOLONE ACET 0.025% 15 GM OINT TOP SCH ×2 (09:00→20:45)
[2017-06-06] MEDS: COLCHICINE 0.6 MG TAB PO SCH (09:41)
[2017-06-06] MEDS: ESCITALOPRAM 10 MG TAB PO SCH (09:43)
[2017-06-06] MEDS: ASPIRIN (EC) 81 MG TAB PO SCH (09:43)
[2017-06-06] MEDS: AMIODARONE 200 MG TAB PO SCH ×2 (09:45→20:36)
[2017-06-06] MEDS: SEVELAMER 800 MG TAB PO SCH ×3 (09:45→17:49)
[2017-06-06] MEDS: NAPROXEN 250 MG TAB PO SCH (09:46)
[2017-06-06] MEDS: LOSARTAN 50 MG TAB PO SCH ×2 (09:47→20:36)
[2017-06-06] MEDS: MULTIVIT/CA CARB/B CMPLX/FA TAB PO SCH (09:52)
[2017-06-06] MEDS: TICAGRELOR 90 MG TABLET PO SCH ×2 (09:56→20:41)
[2017-06-06] MEDS ORDERED: METOPROLOL 25 MG TAB PO SCH ×2 (10:00→21:00)
--- NOTE | 2017-06-06 10:01 | PN ---
Date/Time of Note Date/Time of Note DATE: 06/06/17 TIME: 10:00 Assessment/Plan VTE Prophylaxis VTE Prophylaxis Intervention: SCD's Lines/Catheters IV [facility] Type [facility]from [facility] Saline [facility] Urinary Cath still in place: No Assessment/Plan Chief Complaint/Hosp Course 1. Acute hypoxic respiratory failure. Most probably secondary to pleural effusions and fluid overload from end-stage renal disease. Resolved. 2. Bilateral pleural effusions. Right greater than left. Status post right thoracentesis on 06/05/2017 with a drainage of 920 mL of serous fluid. Pleural fluid analysis revealed transudate. 3. End-stage renal disease on hemodialysis. Continue hemodialysis as per nephrology. 4. Coronary artery disease. Status post coronary artery angioplasty in the past. Continue aspirin and Brilinta. 5. Type 2 diabetes mellitus. Hemoglobin A1c 6.6. Continue sliding scale insulin. 6. Essential hypertension. Continue antihypertensives. Will adjust antihypertensives to obtain optimal blood pressure control. 7. Paroxysmal atrial fibrillation. Status post amiodarone drip. Currently on oral amiodarone. The patient is back to sinus rhythm. 8. Anemia of chronic kidney disease. Monitor H&H closely. Epogen as per nephrology. 9. Diastolic heart failure. Continue medical optimization as per cardiology. 10. Fluids, electrolytes, and nutrition. Renal, carbohydrate controlled diet. 11. DVT prophylaxis. Bilateral sequential compression devices. 12. Plan. Continue current management. Continue aggressive hemodialysis. Plan is to discharge the patient [facility] once cleared by consultants. Case discussed with Dr. Hutchinson. Problems: Subjective 24 Hr Interval Summary Free Text/Dictation Denies any chest pain. Denies any dyspnea. Exam/Review of Systems Vital Signs Vitals Vital Signs Date Time Temp Pulse Resp B/P Pulse Ox O2 Delivery O2 Flow Rate FiO2 06/06/17 08:27 63 06/06/17 07:23 98.6 17 194/95 95 06/03/17 19:38 Nasal Cannula Intake and Output 06/05/17 06/05/17 06/06/17 15:00 23:00 07:00 Intake Total 240 ml 240 ml Balance 240 ml 240 ml Exam General: Adequately build 66 year-old male lying in bed in no apparent distress. HEENT: Normocephalic, atraumatic. Eyes: Anicteric sclerae, conjunctivae clear. ENT: Nasal septum midline, oral mucosa moist. Neck supple, no JVD noticed. Respiratory: Bilaterally clear breath sounds. No use of accessory muscles of respiration. No adventitious breath sounds. Cardiovascular: S1, S2 heard. No murmurs or gallops. Abdomen: Soft, nontender, and nondistended. Bowel sounds positive in all 4 quadrants. Genitourinary: Deferred. Extremities: No cyanosis, no clubbing, no edema. Peripheral pulses palpable. Neurologic: Cranial nerves II through XII grossly intact. The patient is awake, alert, and oriented. Skin: Normal skin turgor. No skin rashes. Results Result Diagram: 06/06/17 0643 06/06/17 0643 Results 24 hrs Laboratory Tests Test 06/05/17 12:45 06/05/17 17:36 06/05/17 21:42 06/06/17 06:43 Bedside Glucose 100 106 98 White Blood Count 8.2 # Red Blood Count 3.21 L Hemoglobin 8.4 L Hematocrit 26.6 L Mean Corpuscular Volume 82.9 Mean Corpuscular Hemoglobin 26.2 L Mean Corpuscular Hemoglobin Concent 31.6 L Red Cell Distribution Width 13.6 Platelet Count 401 Mean Platelet Volume 8.9 Neutrophils % 74.1 Lymphocytes % 10.2 L Monocytes % 12.1 H Eosinophils % 2.7 Basophils % 0.7 Nucleated Red Blood Cells % 0.0 Neutrophils # 6.0 Lymphocytes # 0.8 Monocytes # 1.0 H Eosinophils # 0.2 Basophils # 0.1 Nucleated Red Blood Cells # 0.0 Sodium Level 135 Potassium Level 4.0 Chloride Level 97 Carbon Dioxide Level 30 Anion Gap 12 Blood Urea Nitrogen 20 Creatinine 7.88 H Glucose Level 89 Calcium Level 8.5 Test 06/06/17 09:27 Bedside Glucose 94 Medications Medications Current Medications Alprazolam (Xanax) 0.25 mg Q8H PRN PO ANXIETY; Start 05/31/17 at 19:30 Aspirin (Halfprin) 81 mg DAILY PO Last administered on 06/05/17 10:31; Admin Dose 81 MG; Start 06/01/17 at 09:00 Atorvastatin Calcium (Lipitor) 20 mg QHS PO Last administered on 06/05/17 21: 36; Admin Dose 20 MG; Start 05/31/17 at 22:00 Bisacodyl (Dulcolax Supp) 10 mg Q48H [place] Last administered on 06/04/17 21:23; Admin Dose 10 MG; Start 05/31/17 at 19:30 Clonidine HCl (Catapres-Tts 2 Patch) 0.2 patch Sa@09 TRANSDERM Last administered on 06/02/17 09:55; Admin Dose 0.2 PATCH; Start 06/02/17 at 09:00 Gabapentin (Neurontin) 100 mg QHS PO Last administered on 06/05/17 21:36; Admin Dose 100 MG; Start 05/31/17 at 22:00 Losartan Potassium (Cozaar) 50 mg BID PO Last administered on 06/05/17 21:38 ; Admin Dose 50 MG; Start 05/31/17 at 22:00 Multivit/Ca Carb/ B Cmplx/FA/Prenat (Estephanie-Doc) 1 tab DAILY PO Last administered on 06/05/17 10:30; Admin Dose 1 TAB; Start 06/01/17 at 09:00 Nitroglycerin (Nitroglycerin (Sl Tab) 0.4 Mg) 0.4 tab [id number] PRN SL CHEST PAIN; Start 05/31/17 at 19:30 Senna (Senokot) 2 tab QHS PO Last administered on 06/04/17 21:23; Admin Dose 2 TAB; Start 05/31/17 at 22:00 Sodium Biphosphate/ Sodium Phosphate (Fleet Enema Pediatric) 118 ml Q72H PRN [place] CONSTIPATION; Start 05/31/17 at 19:30 Ticagrelor (Brilinta) 90 mg Q12 PO Last administered on 06/05/17 21:39; Admin Dose 90 MG; Start 05/31/17 at 22:00 Triamcinolone Acetonide (Kenalog 0.025% Oint) 1 applic BID TOP Last administered on 06/04/17 21:25; Admin Dose 1 APPLIC; Start 05/31/17 at 22:00 Ondansetron HCl (Zofran Inj) 4 mg Q6H PRN IV NAUSEA AND/OR VOMITING Last administered on 06/02/17 19:07; Admin Dose 4 MG; Start 05/31/17 at 19:30 Acetaminophen (Tylenol Tab) 650 mg Q6H PRN PO PAIN LEVEL 1-3 OR FEVER; Start 05/31/17 at 19:30 Diagnostic Test (Pha) (Accu-Chek) 1 ea 02 XX ; Start 06/01/17 at 02:00 Miscellaneous Information 1 ea NOTE XX ; Start 05/31/17 at 23:00 Glucose (Glutose) 15 gm Q15M PRN PO DECREASED GLUCOSE; Start 05/31/17 at 23:00 Glucose (Glutose) 22.5 gm Q15M PRN PO DECREASED GLUCOSE; Start 05/31/17 at 23: 00 Dextrose (D50w Syringe) 25 ml Q15M PRN IV DECREASED GLUCOSE; Start 05/31/17 at 23:00 Dextrose (D50w Syringe) 50 ml Q15M PRN IV DECREASED GLUCOSE; Start 05/31/17 at 23:00 Glucagon (Glucagen) 1 mg Q15M PRN IM DECREASED GLUCOSE; Start 05/31/17 at 23:00 Glucose (Glutose) 15 gm Q15M PRN BUCCAL DECREASED GLUCOSE; Start 05/31/17 at 23 :00 Escitalopram Oxalate 10 mg 10 mg DAILY PO Last administered on 06/05/17 10:31 ; Admin Dose 10 MG; Start 06/01/17 at 13:30 Ferric Sodium Gluconate Complex/ Sodium Chloride (Ferrlecit/NS) 110 ml @ 110 mls/hr Q24H IVPB Last administered on 06/05/17 12:51; Admin Dose 110 MLS/HR; Start 06/03/17 at 12:00; Stop 06/07/17 at 12:59 Naproxen (Naprosyn) 250 mg TID PO Last administered on 06/05/17 21:36; Admin Dose 250 MG; Start 06/04/17 at 13:00 Colchicine (Colchicine) 0.3 mg BID PO Last administered on 06/05/17 21:35; Admin Dose 0.3 MG; Start 06/04/17 at 09:30 Digoxin (Digoxin) 0.125 mg DAILY@13 PO Last administered on 06/05/17 12:48; Admin Dose 0.125 MG; Start 06/05/17 at 13:00 Metoprolol Tartrate (Lopressor) 25 mg Q6 PO Last administered on 06/06/17 00: 03; Admin Dose 25 MG; Start 06/04/17 at 18:00 Tramadol HCl (Ultram) 50 mg Q6H PRN PO PAIN Last administered on 06/06/17 00: 08; Admin Dose 50 MG; Start 06/04/17 at 21:00 Amiodarone HCl (Cordarone) 200 mg BID PO Last administered on 06/05/17 21:37 ; Admin Dose 200 MG; Start 06/05/17 at 09:30 Hydralazine HCl (Apresoline) 10 mg Q4H PRN IV SBP >180 Last administered on 15:58; Admin Dose 10 MG; Start 06/05/17 at 16:00 KELSY HERNANDEZ NP Jun 06, 2017 10:01
--- NOTE | 2017-06-06 11:29 | PN ---
Date/Time of Note Date/Time of Note DATE: 06/06/17 TIME: 11:28 Assessment/Plan VTE Prophylaxis VTE Prophylaxis Intervention: other Lines/Catheters IV [facility] Type (from [facility]): Saline Lock Urinary Cath still in place: No Assessment/Plan Chief Complaint/Hosp Course Nephrology follow up HISTORY OF PRESENT ILLNESS: This is a 66-year-old male with past medical history of ESRD who presents to [facility] Emergency Room with chest pain, shortness of breath. no nausea, melena, fever or new rash last HD was 2 days ago d/w Dr crowe and HD nurse REVIEW OF SYSTEMS: A 14-point review of systems reviewed. PHYSICAL EXAMINATION: HEENT: Normocephalic and atraumatic. HEART: Regular rate. LUNGS: Show diminished breath sounds throughout the base. no wheezing ABDOMEN: Soft, nontender to palpation EXTREMITIES: Negative for cyanosis or clubbing, no edema. SKIN: No rashes. Chest x-ray: Reviewed and shows bilateral pleural effusion right greater than left. ASSESSMENT AND PLAN: This is a 66-year-old male who presents with: 1. End-stage renal disease. The patient underwent hemodialysis two days ago. He will be evaluated daily for his dialytic needs. continue with hd today. We will monitor vitals closely with supportive care. 2. Volume overload. The patient with possible chf exacerbation. Chest x-ray shows bilateral pleural effusion. Ultrafiltration with hemodialysis and monitor closely. 3. Diabetes. 4. anemia: will start IV iron. continue epogen with hd 5. HTN: BP at target after UF/HD. Meds were reviewed Problems: Exam/Review of Systems Vital Signs Vitals Vital Signs Date Time Temp Pulse Resp B/P Pulse Ox O2 Delivery O2 Flow Rate FiO2 06/06/17 08:27 63 06/06/17 07:23 98.6 17 194/95 95 06/03/17 19:38 Nasal Cannula Intake and Output 06/05/17 06/05/17 06/06/17 15:00 23:00 07:00 Intake Total 240 ml 240 ml Balance 240 ml 240 ml Results Result Diagram: 06/06/17 0643 06/06/17 0643 Results 24 hrs Laboratory Tests Test 06/05/17 12:45 06/05/17 17:36 06/05/17 21:42 06/06/17 06:43 Bedside Glucose 100 106 98 White Blood Count 8.2 # Red Blood Count 3.21 L Hemoglobin 8.4 L Hematocrit 26.6 L Mean Corpuscular Volume 82.9 Mean Corpuscular Hemoglobin 26.2 L Mean Corpuscular Hemoglobin Concent 31.6 L Red Cell Distribution Width 13.6 Platelet Count 401 Mean Platelet Volume 8.9 Neutrophils % 74.1 Lymphocytes % 10.2 L Monocytes % 12.1 H Eosinophils % 2.7 Basophils % 0.7 Nucleated Red Blood Cells % 0.0 Neutrophils # 6.0 Lymphocytes # 0.8 Monocytes # 1.0 H Eosinophils # 0.2 Basophils # 0.1 Nucleated Red Blood Cells # 0.0 Sodium Level 135 Potassium Level 4.0 Chloride Level 97 Carbon Dioxide Level 30 Anion Gap 12 Blood Urea Nitrogen 20 Creatinine 7.88 H Glucose Level 89 Calcium Level 8.5 Test 06/06/17 09:27 Bedside Glucose 94 Medications Medications Current Medications Alprazolam (Xanax) 0.25 mg Q8H PRN PO ANXIETY; Start 05/31/17 at 19:30 Aspirin (Halfprin) 81 mg DAILY PO Last administered on 06/06/17 09:43; Admin Dose 81 MG; Start 06/01/17 at 09:00 Atorvastatin Calcium (Lipitor) 20 mg QHS PO Last administered on 06/05/17 21: 36; Admin Dose 20 MG; Start 05/31/17 at 22:00 Bisacodyl (Dulcolax Supp) 10 mg Q48H [place] Last administered on 06/04/17 21:23; Admin Dose 10 MG; Start 05/31/17 at 19:30 Clonidine HCl (Catapres-Tts 2 Patch) 0.2 patch Sa@09 TRANSDERM Last administered on 06/02/17 09:55; Admin Dose 0.2 PATCH; Start 06/02/17 at 09:00 Gabapentin (Neurontin) 100 mg QHS PO Last administered on 06/05/17 21:36; Admin Dose 100 MG; Start 05/31/17 at 22:00 Losartan Potassium (Cozaar) 50 mg BID PO Last administered on 06/06/17 09:47 ; Admin Dose 50 MG; Start 05/31/17 at 22:00 Multivit/Ca Carb/ B Cmplx/FA/Prenat (Estephanie-Doc) 1 tab DAILY PO Last administered on 06/06/17 09:52; Admin Dose 1 TAB; Start 06/01/17 at 09:00 Nitroglycerin (Nitroglycerin (Sl Tab) 0.4 Mg) 0.4 tab [id number] PRN SL CHEST PAIN; Start 05/31/17 at 19:30 Senna (Senokot) 2 tab QHS PO Last administered on 06/04/17 21:23; Admin Dose 2 TAB; Start 05/31/17 at 22:00 Sodium Biphosphate/ Sodium Phosphate (Fleet Enema Pediatric) 118 ml Q72H PRN [place] CONSTIPATION; Start 05/31/17 at 19:30 Ticagrelor (Brilinta) 90 mg Q12 PO Last administered on 06/06/17 09:56; Admin Dose 90 MG; Start 05/31/17 at 22:00 Triamcinolone Acetonide (Kenalog 0.025% Oint) 1 applic BID TOP Last administered on 06/04/17 21:25; Admin Dose 1 APPLIC; Start 05/31/17 at 22:00 Ondansetron HCl (Zofran Inj) 4 mg Q6H PRN IV NAUSEA AND/OR VOMITING Last administered on 06/02/17 19:07; Admin Dose 4 MG; Start 05/31/17 at 19:30 Acetaminophen (Tylenol Tab) 650 mg Q6H PRN PO PAIN LEVEL 1-3 OR FEVER; Start 05/31/17 at 19:30 Diagnostic Test (Pha) (Accu-Chek) 1 ea 02 XX ; Start 06/01/17 at 02:00 Miscellaneous Information 1 ea NOTE XX ; Start 05/31/17 at 23:00 Glucose (Glutose) 15 gm Q15M PRN PO DECREASED GLUCOSE; Start 05/31/17 at 23:00 Glucose (Glutose) 22.5 gm Q15M PRN PO DECREASED GLUCOSE; Start 05/31/17 at 23: 00 Dextrose (D50w Syringe) 25 ml Q15M PRN IV DECREASED GLUCOSE; Start 05/31/17 at 23:00 Dextrose (D50w Syringe) 50 ml Q15M PRN IV DECREASED GLUCOSE; Start 05/31/17 at 23:00 Glucagon (Glucagen) 1 mg Q15M PRN IM DECREASED GLUCOSE; Start 05/31/17 at 23:00 Glucose (Glutose) 15 gm Q15M PRN BUCCAL DECREASED GLUCOSE; Start 05/31/17 at 23 :00 Escitalopram Oxalate 10 mg 10 mg DAILY PO Last administered on 06/06/17 09:43 ; Admin Dose 10 MG; Start 06/01/17 at 13:30 Ferric Sodium Gluconate Complex/ Sodium Chloride (Ferrlecit/NS) 110 ml @ 110 mls/hr Q24H IVPB Last administered on 06/05/17 12:51; Admin Dose 110 MLS/HR; Start 06/03/17 at 12:00; Stop 06/07/17 at 12:59 Naproxen (Naprosyn) 250 mg TID PO Last administered on 06/06/17 09:46; Admin Dose 250 MG; Start 06/04/17 at 13:00 Colchicine (Colchicine) 0.3 mg BID PO Last administered on 06/06/17 09:41; Admin Dose 0.3 MG; Start 06/04/17 at 09:30 Digoxin (Digoxin) 0.125 mg DAILY@13 PO Last administered on 06/05/17 12:48; Admin Dose 0.125 MG; Start 06/05/17 at 13:00 Tramadol HCl (Ultram) 50 mg Q6H PRN PO PAIN Last administered on 06/06/17 00: 08; Admin Dose 50 MG; Start 06/04/17 at 21:00 Amiodarone HCl (Cordarone) 200 mg BID PO Last administered on 06/06/17 09:45 ; Admin Dose 200 MG; Start 06/05/17 at 09:30 Hydralazine HCl (Apresoline) 10 mg Q4H PRN IV SBP >180 Last administered on 15:58; Admin Dose 10 MG; Start 06/05/17 at 16:00 Metoprolol Tartrate (Lopressor) 25 mg BID PO ; Start 06/06/17 at 10:00 JUANA SMITH DO Jun 06, 2017 11:29
[2017-06-06] MEDS: SOD FERRIC GLUC COMPLX 125 MG in SOD CHLORIDE 0.9% 100 ML IVPB SCH (13:48)
--- NOTE | 2017-06-06 15:03 | PDOCDIS ---
Discharge Instructions DIAGNOSIS Discharge Diagnosis B/L pleural effusions. CONDITION Patient Condition: Stable HOME CARE INSTRUCTIONS: Special Diet: LOW CHOL LOW FAT, RENAL FOLLOW UP/APPOINTMENTS Follow-up Plan Nicholas Bryson MD Specialty Interventional Cardiology Office Address [facility] [address], [address] [place] [address] Office OTHER ORDERS: Other Orders: 1. Take medications as per prescription. 2. Take a low-cholesterol, renal diet. 3. Follow-up cardiology (Dr. Bryson) in 2 weeks. 4. Follow-up with your hemodialysis clinic as scheduled. 5. Activities as tolerated. KELSY HERNANDEZ NP Jun 06, 2017 15:03
[2017-06-06] MEDS: DIGOXIN 0.125 MG TAB PO SCH (15:30)
[2017-06-06] MEDS ORDERED: AMIO200T2 PO (15:55)
[2017-06-06] MEDS ORDERED: DIGO125T PO (15:55)
[2017-06-06] MEDS ORDERED: FER325 PO (15:55)
[2017-06-06] MEDS ORDERED: METO-448 PO (15:55)
[2017-06-06] MEDS ORDERED: ESCI10TA48 PO (15:55)
--- NOTE | 2017-06-06 16:07 | CONS ---
Date/Time of Note Date/Time of Note DATE: 06/06/17 TIME: 16:00 Assessment/Plan Assessment/Plan Chief Complaint/Hosp Course IMP: 1.CHF-diastolic acute on chronic 2.HTN 3.SVT 4.DM RECC: -tele -serial ecgs -continue BB/clonidine/losartan -continue amio -continue digoxin -continue asa/brilinta Problems: Consultation Date/Type/Reason Admit Date/Time May 31, 2017 at 18:39 Initial Consult Date 06/01/2017 Type of Consultation: cardiology Reason for Consultation CHF/HTN Referring Provider: KELSY HERNANDEZ SENIOR FRONT END ENGINEER Exam/Review of Systems Vital Signs Vitals Vital Signs Date Time Temp Pulse Resp B/P Pulse Ox O2 Delivery O2 Flow Rate FiO2 06/06/17 12:38 65 06/06/17 11:29 98.2 17 163/75 96 06/03/17 19:38 Nasal Cannula Intake and Output 06/05/17 06/05/17 06/06/17 15:00 23:00 07:00 Intake Total 240 ml 240 ml Balance 240 ml 240 ml Exam Review of Systems: CONSTITUTIONAL: No fevers, chills. PULMONARY: No sob CARDIOVASCULAR: No chest pain/palpitations GASTROINTESTINAL: No nausea/vomiting. GENITOURINARY: No hematuria/dysuria. MUSCULOSKELETAL: No myagias/arthalgias. PSYCHIATRIC: The patient denies depression. NEUROLOGIC: No weakness Constitutional: other (sleeping, aroousable) Psych: no complaints Head: normocephalic ENMT: mucosa pink and moist Neck: jvd (9 cm water), supple Respiratory: clear to auscultation Cardiovascular: regular rate and rhythm Gastrointestinal: non-tender, soft Musculoskeletal: muscle tone (normal) Extremities: edema (none) 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: other (no focal deficits) Results Result Diagram: 06/06/1743 06/06/17 0643 Results 24 hrs Laboratory Tests Test 06/05/17 17:36 06/05/17 21:42 06/06/17 06:43 06/06/17 09:27 Bedside Glucose 106 98 94 White Blood Count 8.2 # Red Blood Count 3.21 L Hemoglobin 8.4 L Hematocrit 26.6 L Mean Corpuscular Volume 82.9 Mean Corpuscular Hemoglobin 26.2 L Mean Corpuscular Hemoglobin Concent 31.6 L Red Cell Distribution Width 13.6 Platelet Count 401 Mean Platelet Volume 8.9 Neutrophils % 74.1 Lymphocytes % 10.2 L Monocytes % 12.1 H Eosinophils % 2.7 Basophils % 0.7 Nucleated Red Blood Cells % 0.0 Neutrophils # 6.0 Lymphocytes # 0.8 Monocytes # 1.0 H Eosinophils # 0.2 Basophils # 0.1 Nucleated Red Blood Cells # 0.0 Sodium Level 135 Potassium Level 4.0 Chloride Level 97 Carbon Dioxide Level 30 Anion Gap 12 Blood Urea Nitrogen 20 Creatinine 7.88 H Glucose Level 89 Calcium Level 8.5 Test 06/06/17 13:04 Bedside Glucose 119 Medications Medications Current Medications Alprazolam (Xanax) 0.25 mg Q8H PRN PO ANXIETY; Start 05/31/17 at 19:30 Aspirin (Halfprin) 81 mg DAILY PO Last administered on 06/06/17 09:43; Admin Dose 81 MG; Start 06/01/17 at 09:00 Atorvastatin Calcium (Lipitor) 20 mg QHS PO Last administered on 06/05/17 21: 36; Admin Dose 20 MG; Start 05/31/17 at 22:00 Bisacodyl (Dulcolax Supp) 10 mg Q48H [place] Last administered on 06/04/17 21:23; Admin Dose 10 MG; Start 05/31/17 at 19:30 Clonidine HCl (Catapres-Tts 2 Patch) 0.2 patch Sa@09 TRANSDERM Last administered on 06/02/17 09:55; Admin Dose 0.2 PATCH; Start 06/02/17 at 09:00 Gabapentin (Neurontin) 100 mg QHS PO Last administered on 06/05/17 21:36; Admin Dose 100 MG; Start 05/31/17 at 22:00 Losartan Potassium (Cozaar) 50 mg BID PO Last administered on 06/06/17 09:47 ; Admin Dose 50 MG; Start 05/31/17 at 22:00 Multivit/Ca Carb/ B Cmplx/FA/Prenat (Estephanie-Doc) 1 tab DAILY PO Last administered on 06/06/17 09:52; Admin Dose 1 TAB; Start 06/01/17 at 09:00 Nitroglycerin (Nitroglycerin (Sl Tab) 0.4 Mg) 0.4 tab [id number] PRN SL CHEST PAIN; Start 05/31/17 at 19:30 Senna (Senokot) 2 tab QHS PO Last administered on 06/04/17 21:23; Admin Dose 2 TAB; Start 05/31/17 at 22:00 Sodium Biphosphate/ Sodium Phosphate (Fleet Enema Pediatric) 118 ml Q72H PRN [place] CONSTIPATION; Start 05/31/17 at 19:30 Ticagrelor (Brilinta) 90 mg Q12 PO Last administered on 06/06/17 09:56; Admin Dose 90 MG; Start 05/31/17 at 22:00 Triamcinolone Acetonide (Kenalog 0.025% Oint) 1 applic BID TOP Last administered on 06/04/17 21:25; Admin Dose 1 APPLIC; Start 05/31/17 at 22:00 Ondansetron HCl (Zofran Inj) 4 mg Q6H PRN IV NAUSEA AND/OR VOMITING Last administered on 06/02/17 19:07; Admin Dose 4 MG; Start 05/31/17 at 19:30 Acetaminophen (Tylenol Tab) 650 mg Q6H PRN PO PAIN LEVEL 1-3 OR FEVER; Start 05/31/17 at 19:30 Diagnostic Test (Pha) (Accu-Chek) 1 ea 02 XX ; Start 06/01/17 at 02:00 Miscellaneous Information 1 ea NOTE XX ; Start 05/31/17 at 23:00 Glucose (Glutose) 15 gm Q15M PRN PO DECREASED GLUCOSE; Start 05/31/17 at 23:00 Glucose (Glutose) 22.5 gm Q15M PRN PO DECREASED GLUCOSE; Start 05/31/17 at 23: 00 Dextrose (D50w Syringe) 25 ml Q15M PRN IV DECREASED GLUCOSE; Start 05/31/17 at 23:00 Dextrose (D50w Syringe) 50 ml Q15M PRN IV DECREASED GLUCOSE; Start 05/31/17 at 23:00 Glucagon (Glucagen) 1 mg Q15M PRN IM DECREASED GLUCOSE; Start 05/31/17 at 23:00 Glucose (Glutose) 15 gm Q15M PRN BUCCAL DECREASED GLUCOSE; Start 05/31/17 at 23 :00 Escitalopram Oxalate 10 mg 10 mg DAILY PO Last administered on 06/06/17 09:43 ; Admin Dose 10 MG; Start 06/01/17 at 13:30 Ferric Sodium Gluconate Complex/ Sodium Chloride (Ferrlecit/NS) 110 ml @ 110 mls/hr Q24H IVPB Last administered on 06/06/17 13:48; Admin Dose 110 MLS/HR; Start 06/03/17 at 12:00; Stop 06/07/17 at 12:59 Digoxin (Digoxin) 0.125 mg DAILY@13 PO Last administered on 06/06/17 15:30; Admin Dose 0.125 MG; Start 06/05/17 at 13:00 Tramadol HCl (Ultram) 50 mg Q6H PRN PO PAIN Last administered on 06/06/17 00: 08; Admin Dose 50 MG; Start 06/04/17 at 21:00 Amiodarone HCl (Cordarone) 200 mg BID PO Last administered on 06/06/17 09:45 ; Admin Dose 200 MG; Start 06/05/17 at 09:30 Hydralazine HCl (Apresoline) 10 mg Q4H PRN IV SBP >180 Last administered on 15:58; Admin Dose 10 MG; Start 06/05/17 at 16:00 Metoprolol Tartrate (Lopressor) 50 mg BID PO ; Start 06/06/17 at 21:00 ALMITA DEWITT Jun 06, 2017 16:07
[2017-06-06] MEDS: hydrALAzine 20 MG INJ IV PRN (17:49)
[2017-06-06] MEDS: BISACODYL 10 MG SUPP PR SCH (19:30)
[2017-06-06] MEDS: GABAPENTIN 100 MG CAP PO SCH (20:35)
[2017-06-06] MEDS: ATORVASTATIN 20 MG TAB PO SCH (20:37)
[2017-06-06] MEDS: SENNA TAB PO SCH (20:45)
--- NOTE | 2017-06-06 22:57 | DS ---
DATE OF ADMISSION: 05/31/2017 DATE OF DISCHARGE: 06/06/2017 FINAL DIAGNOSES: 1. Acute hypoxic respiratory failure secondary to bilateral pleural effusions and fluid overload from end-stage renal disease. 2. Bilateral pleural effusions, status post right thoracentesis. 3. End-stage renal disease, on hemodialysis. 4. Coronary artery disease. 5. Type 2 diabetes mellitus. 6. Essential hypertension. 7. Paroxysmal atrial fibrillation. 8. Anemia of chronic kidney disease. 9. Diastolic heart failure. 10. Small pericardial effusion. CONSULTANTS: 1. Dr. Malachi Lynn, nephrology. 2. Dr. Avtar Wilder, cardiology. 3. Dr. Nicholas Bryson, cardiology. HOSPITAL COURSE: This is a 66-year-old male with end-stage renal disease on hemodialysis, diabetes mellitus, essential hypertension, coronary artery disease, who presented to the emergency room with chief complaint of dyspnea. The patient was brought in by ambulance from a [facility]. The patient was given 3 nitroglycerin by the paramedics. The patient was complaining of orthopnea. The patient denied any chest pain or diaphoresis. The patient's blood pressure was significantly elevated, as per paramedics about 200 systolic. The patient was admitted to inpatient telemetry floor. Cardiology consult was obtained. Serial troponins were obtained. The patient was noticed to have bilateral pleural effusions that could have been contributing to the patient's acute respiratory distress along with fluid overload from underlying end-stage renal disease. The patient was aggressively hemodialyzed with minimal improvement in the patient's symptoms. Consequently, the patient underwent a right-sided ultrasound guided thoracentesis that drained 920 mL of fluid. The pleural fluid analysis revealed a transudate. The patient's symptomatology improved significantly after the right thoracentesis. The patient has a history of coronary artery disease. He is status post coronary artery angioplasty in the past. He was continued on aspirin and Brilinta. He has underlying type 2 diabetes mellitus. He was noticed to have a hemoglobin A1c of 6.6. The patient was maintained on sliding scale insulin with well controlled blood sugars. He was noticed to have some uncontrolled hypertension, The patient's antihypertensives had to be adjusted multiple times to obtain optimal blood pressure control. The patient also had paroxysmal atrial fibrillation during this hospitalization. Consequently, he was started on amiodarone drip, which was later converted to oral amiodarone and the patient was back to sinus rhythm. He has underlying anemia of chronic kidney disease. He was maintained on Epogen as per nephrology. The patient's 2D echocardiogram showed diastolic heart failure. The patient's cardiac medications were optimized by cardiology. The patient was also noticed to have a small pericardial effusion. Consequently, the patient was started on colchicine and naproxen. The patient's repeat 2D echocardiogram did not reveal any increase in the pericardial effusion. The patient had no evidence of any tamponade. The patient's naproxen and colchicine will be discontinued particularly since the patient has end-stage renal disease. The patient had a stable hospital course. The patient was cleared by consultants to be discharged home. The patient denied any complaints at the time of discharge. DISCHARGE DISPOSITION/PLAN: The patient will be discharged to [facility]. He was instructed to take medications as per prescription. He will follow a low- cholesterol, renal diet. He was instructed follow up with Dr. Bryson in 2 weeks. He was instructed to follow up with his hemodialysis clinic as scheduled. He was instructed to resume activities as tolerated. The patient verbalized understanding of his discharge instructions. DISCHARGE CONDITION: Stable. DISCHARGE MEDICATIONS: 1. Xanax 0.25 mg p.o. q.8 hours p.r.n. anxiety. 2. Aspirin 81 mg p.o. daily. 3. Brilinta 90 mg p.o. b.i.d. 4. Atorvastatin 20 mg p.o. nightly. 5. Clonidine patch 0.2 mg per 24 hours every week. 6. Gabapentin 100 mg p.o. nightly. 7. Losartan 50 mg p.o. b.i.d. 8. Estephanie-Doc 1 tab p.o. daily. 9. Omeprazole 20 mg p.o. daily. 10. Senna Lax 2 tabs p.o. nightly. 11. Renagel 850 mg p.o. with meals. 12. Digoxin 0.125 mg every 48 hours. 13. Lexapro 10 mg p.o. daily. 14. Insulin sliding scale with a mild dose algorithm. 15. Lopressor 50 mg p.o. b.i.d. 16. Amiodarone 200 mg p.o b.i.d. PERTINENT LAB AND DIAGNOSTIC DATA: 1. On 06/05/2017, right-sided thoracentesis with drainage of 920 mL of serous fluid. 2. Latest 2D echocardiogram on 06/03/2017. Ejection fraction of 65 percent, abnormal diastolic function estimated PA systolic pressure of 38 mmHg. 3. Latest chest x-ray on 06/05/2017. Cardiomegaly with calcified atherosclerosis in the aorta. Interval decrease in right pleural effusion with improved aeration of the right lower lung. No pneumothorax. Blunting of left costophrenic angle that may reflect a small left pleural effusion. Also, the patient was noticed to have non-ST elevation myocardial infarction. However, this could be most probably from demand ischemia from underlying atrial fibrillation. The patient was ruled out for any underlying acute coronary syndrome. 4. Latest CBC: WBC 8.2, hemoglobin 8.4, hematocrit 26.6, platelet count 401. 5. Latest BMP: Sodium 135, potassium 4.2, chloride 97, carbon dioxide 20, anion gap 12, BUN 20, creatinine 7.8, glucose 89, calcium 8.5. 6. Iron panel: Iron 15, TIBC 192, iron saturation 8. 7. Hemoglobin A1c 6.6. 8. Fasting lipid panel: Triglycerides 74, total cholesterol 90, LDL 29, HDL 46. At this time, I would like to thank all the consultants for seeing the patient and providing clinical recommendations. The case and management of this patient was thoroughly discussed with Dr. Hutchinson. Approximately 40 minutes was spent on coordinating the discharge of this patient. Dictated By: Thang Bourgeois NP /elena/peg /Document#: [id number] QUIQUE
--- NOTE | 2017-06-07 13:36 | RADRPT ---
Vent Rate: 149 bpm RR Interval: 0 msec ME Interval: 0 msec QRS Duration: 84 msec QT Interval: 314 msec QTC Interval: 494 msec P-R-T [place]: 0 - 41 - -89 degrees Supraventricular tachycardia Septal infarct , age undetermined ST amp; T wave abnormality, consider inferior ischemia Abnormal ECG Electronically Signed By: Chris Gomez [id number]
== END 2017-06-06 21:16 | DRG 291 ==
LOC: E/R 16:32 → TEL 18:39
PROVIDERS: ADMIT Internal Medicine; ATTEND Internal Medicine
PROC: 5A1D70Z Performance of Urinary Filtration, Intermittent, Less than 6 Hours Per Day (ICD-10-PCS; 2017-06-02)
PROC: 0W993ZZ Drainage of Right Pleural Cavity, Percutaneous Approach (ICD-10-PCS; principal; 2017-06-05)
DX: I13.2 Hypertensive heart and chronic kidney disease with heart failure and with stage 5 chronic kidney disease, or end stage renal disease (principal); N18.6 End stage renal disease; J96.01 Acute respiratory failure with hypoxia; I50.33 Acute on chronic diastolic (congestive) heart failure; I16.1 Hypertensive emergency; I47.1 Supraventricular tachycardia; J90 Pleural effusion, not elsewhere classified; E11.22 Type 2 diabetes mellitus with diabetic chronic kidney disease; Z99.2 Dependence on renal dialysis; I25.10 Atherosclerotic heart disease of native coronary artery without angina pectoris; Z87.891 Personal history of nicotine dependence; F32.9 Major depressive disorder, single episode, unspecified; D50.9 Iron deficiency anemia, unspecified; D63.1 Anemia in chronic kidney disease; I48.0 Paroxysmal atrial fibrillation; Z95.5 Presence of coronary angioplasty implant and graft
CPT/HCPCS: 36415; 36600; 71010; 76942; 80048; 80053; 80061; 82150; 82550; 82553; 82803; 82945; 82962; 83036; 83540; 83615; 83735; 83880; 84157; 84443; 84484; 85025; 85610; 85730; 86704; 86706; 87070; 87081; 87340; 89051; 90935; 93005; 93306; 96374; J0282; J0360; J1815; J1940; J2270; J2405; J2916; J7060